=== PATIENT | female | born 1975 | race African-American/Black ===

== ENCOUNTER 2018-10-12 09:47 | Observation (INO) | payer OTHER ==
[~2018-10-12] VITALS: Ht 175.3 cm; Wt 142.0 kg
--- OUTSIDE RECORDS SUMMARY | 2018-10-12 09:51 | XMS REPORT | Clinical Summary ---
Author Author [facility] Organization [facility] Address Unknown Phone Unavailable Care Team Providers Care Full Fashioned Garment Knitter Name Role Phone Jaida Torres MD PCP Allergies Comments Active Allergy Reactions Severity Noted Date Throat closes up Lisinopril Hives High 05/14/2017 Medications End Date Status Medication Sig Dispensed Refills Start Date Active FLUoxetine (PROzac) 10 MG Take 10 mg by 0 capsule mouth 2 (two) times a day. Active amLODIPine (NORVASC) 10 Take 5 mg by 0 mg tablet mouth 2 (two) times a day. Active clonIDINE (CATAPRES) 0.1 Take 1 tablet 30 tablet 0 08/28/201 MG tablet (0.1 mg 9 total) by mouth 2 (two) times a day. 10/29/2017 Discontinued metoprolol tartrate Take 50 mg by 0 (LOPRESSOR) 50 mg tablet mouth daily. 10/30/2017 Discontinued amLODIPine (NORVASC) 10 Take 1 tablet 30 tablet 0 09/27/201 mg tablet (10 mg total) 8 by mouth daily for 30 days. 08/28/2018 Discontinued clonIDINE (CATAPRES) 0.1 Take one tab 30 tablet 0 09/27/201 MG tablet twice a day 8 as needed for blood pressure more then 165. 11/29/2017 amLODIPine (NORVASC) 10 Take 1 tablet 30 tablet 0 10/30/201 mg tablet (10 mg total) 8 by mouth daily for 30 days. 11/30/2017 fluticasone (FLONASE) 50 2 sprays (100 15.8 mL 0 mcg/actuation nasal spray mcg total) by 8 Each Nare route daily for 30 days. 11/30/2017 pantoprazole (PROTONIX) Take 1 tablet 30 tablet 0 40 MG EC tablet (40 mg total) 8 by mouth daily for 30 days. 11/29/2017 albuterol (PROAIR Inhale 2 18 g 0 HFA,PROVENTIL puffs every 6 8 HFA,VENTOLIN HFA) 90 (six) hours mcg/actuation inhaler as needed for wheezing or shortness of breath for up to 30 days. 11/04/2017 methylPREDNISolone follow 21 tablet 0 (MEDROL, ANA,) 4 mg package 8 tablet directions 12/03/2017 ondansetron ODT (ZOFRAN Take 1 tablet 12 tablet 0 ODT) 4 MG disintegrating (4 mg total) 8 tablet by mouth every 8 (eight) hours as needed for nausea or vomiting for up to 7 days. Active Problems Problem Noted Date Accelerated hypertension 02/10/2018 Colitis 02/10/2018 Overview: Added automatically from request for surgery [id number] Chest pain 10/29/2017 Flank pain 09/26/2017 Hypertensive urgency 06/26/2017 Encounters Care Team Description Date Type Specialty Erik Zimmerman MD 08/29/2018 Hospital Radiology Encounter Erik Zimmerman MD 08/29/2018 Hospital Radiology Encounter Dena Scales RN 08/29/2018 Orders Only Radiology Isaac Kenney MD Joglekar, Samir P., MD Chest pain, unspecified type (Primary Dx); Uncontrolled hypertension 08/27/2018 Emergency General Internal Medicine - 08/28/2018 Herberth Messina MD LakKayce kennedy MD Hypertensive urgency (Primary Dx); Abdominal pain, unspecified abdominal location 06/08/2018 Emergency General Internal Medicine - 06/09/2018 Jaky Mathew MD 02/12/2018 Anesthesia Gastroenterology Event Juan Manuel De Paz MD COLONOSCOPY with polypectomy by forceps 02/12/2018 Surgery Gastroenterology Marilin Milan MD Ahmed, Yahya, MD Colitis (Primary Dx); Accelerated hypertension 02/10/2018 Hospital General Internal Medicine - Encounter 02/13/2018 Jessie Freed MD Abdominal pain, unspecified abdominal location (Primary Dx); Acute pain of left knee 11/26/2017 Emergency Emergency Medicine Jessie Freed MD Khemka, Sanjay, MD Mohammad, Muneeb, MD Chest pain, unspecified type (Primary Dx); Hypoxemia; Hypertension, unspecified type 10/28/2017 [facility] General Internal Medicine - Encounter 10/30/2017 after 10/11/2017 Family History Medical History Relation Name Comments Diabetes Maternal Grandmother Heart disease Maternal Grandmother Hyperlipidemia Maternal Grandmother Hypertension Maternal Grandmother Stroke Maternal Grandmother Relation Name Status Comments Maternal Grandmother Alive Mother Alive Social History Date Tobacco Use Types Packs/Day Years Used Never Smoker Smokeless Tobacco: Never Used Tobacco Cessation: Counseling Given: No Alcohol Use Drinks/Week oz/Week Comments Yes social Sex Assigned at Date Recorded Not on file Industry Job Start Date Occupation Not on file Not on file Not on file Travel End Travel History Travel Start No recent travel history available. Last Filed Vital Signs Time Taken Vital Sign Reading 08/28/2018 3:07 PM SOLDERER Blood Pressure 134/70 08/28/2018 3:07 PM SOLDERER Pulse 89 08/28/2018 3:07 PM SOLDERER Temperature 36.9 C (98.5 F) 08/28/2018 3:07 PM SOLDERER Respiratory Rate 15 08/28/2018 3:07 PM SOLDERER Oxygen Saturation 100% - Inhaled Oxygen - Concentration 08/28/2018 5:15 AM SOLDERER Weight 142 kg (312 lb) 08/28/2018 5:15 AM SOLDERER Height 175.3 cm (5' 9") 08/28/2018 5:15 AM SOLDERER Body Mass Index 46.07 Plan of Treatment Health Maintenance Due Date Last Done Comments CERVICAL CANCER SCREENING 1995 INFLUENZA VACCINE 02/26/2018 Procedures Comments Procedure Name Priority Date/Time Associated Diagnosis NM MYOCARDIAL PERFUSION Routine 08/29/2018 STRESS REST 2 DAY 12:20 PM SOLDERER CV STRESS TEST NUCLEAR Routine 08/29/2018 CARDIO 12:20 PM SOLDERER ECG 12-LEAD STAT 08/28/2018 12:29 PM SOLDERER TROPONIN Timed 08/28/2018 10:10 AM SOLDERER US RENAL STAT 08/28/2018 7:00 AM SOLDERER HEMOGLOBIN A1C Routine 08/28/2018 4:02 AM SOLDERER LIPID PANEL Routine 08/28/2018 4:02 AM SOLDERER TROPONIN Timed 08/28/2018 4:02 AM SOLDERER ESTIMATED GFR Routine 08/28/2018 4:02 AM SOLDERER MAGNESIUM LEVEL Routine 08/28/2018 4:02 AM SOLDERER IONIZED CALCIUM Routine 08/28/2018 4:02 AM SOLDERER PHOSPHORUS LEVEL Routine 08/28/2018 4:02 AM SOLDERER COMPREHENSIVE METABOLIC Routine 08/28/2018 PANEL 4:02 AM SOLDERER HC COMPLETE BLD COUNT Routine 08/28/2018 W/AUTO DIFF 4:02 AM SOLDERER XR CHEST 2 VW STAT 08/28/2018 1:01 AM SOLDERER HCG QUALITATIVE, SERUM STAT 08/28/2018 SCREEN 12:26 AM SOLDERER ECG ED PRELIMINARY Routine 08/28/2018 INTERPRETATION 12:08 AM SOLDERER D-DIMER STAT 08/27/2018 10:31 PM SOLDERER ESTIMATED GFR STAT 08/27/2018 10:31 PM SOLDERER B NATRIURETIC PEPTIDE STAT 08/27/2018 10:31 PM SOLDERER TROPONIN STAT 08/27/2018 10:31 PM SOLDERER COMPREHENSIVE METABOLIC STAT 08/27/2018 PANEL 10:31 PM SOLDERER HC COMPLETE BLD COUNT STAT 08/27/2018 W/AUTO DIFF 10:31 PM SOLDERER ECG 12-LEAD STAT 08/27/2018 10:05 PM SOLDERER ECHOCARDIOGRAM 2D Routine 06/09/2018 COMPLETE W MMODE SPECTRAL 11:40 AM SOLDERER COLOR DOPPLER ([id number]) ESTIMATED GFR Routine 06/09/2018 6:30 AM SOLDERER HEMOGLOBIN A1C Routine 06/09/2018 6:30 AM SOLDERER THYROID STIMULATING Routine 06/09/2018 HORMONE 6:30 AM SOLDERER LIPID PANEL Routine 06/09/2018 6:30 AM SOLDERER COMPREHENSIVE METABOLIC Routine 06/09/2018 PANEL 6:30 AM SOLDERER HC COMPLETE BLD COUNT Routine 06/09/2018 W/AUTO DIFF 6:30 AM SOLDERER TROPONIN Timed 06/08/2018 11:00 PM SOLDERER GASTROINTESTINAL PANEL Routine 06/08/2018 3:[address] ABDOMEN PELVIS W STAT 06/08/2018 CONTRAST 2:23 PM SOLDERER ESTIMATED GFR STAT 06/08/2018 1:09 PM SOLDERER TROPONIN Routine 06/08/2018 1:09 PM SOLDERER LIPASE LEVEL STAT 06/08/2018 1:09 PM SOLDERER COMPREHENSIVE METABOLIC STAT 06/08/2018 PANEL 1:09 PM SOLDERER HC COMPLETE BLD COUNT STAT 06/08/2018 W/AUTO DIFF 1:09 PM SOLDERER ECG 12-LEAD STAT 06/08/2018 12:58 PM SOLDERER XR CHEST 1 VW PORTABLE STAT 06/08/2018 12:58 PM SOLDERER ECG ED PRELIMINARY Routine 06/08/2018 INTERPRETATION 12:36 PM SOLDERER ZZESTIMATED GFR Routine 02/13/2018 5:05 AM CDT IONIZED CALCIUM Routine 02/13/2018 5:05 AM CDT PHOSPHORUS LEVEL Routine 02/13/2018 5:05 AM CDT MAGNESIUM LEVEL Routine 02/13/2018 5:05 AM CDT COMPREHENSIVE METABOLIC Routine 02/13/2018 PANEL 5:05 AM CDT HC COMPLETE BLD COUNT Routine 02/13/2018 W/AUTO DIFF 5:05 AM CDT SURGICAL PATHOLOGY Routine 02/12/2018 REQUEST 1:29 PM CDT COLONOSCOPY 02/12/2018 Colitis 11:45 AM CDT IONIZED CALCIUM Routine 02/12/2018 5:50 AM CDT ZZESTIMATED GFR Routine 02/12/2018 5:50 AM CDT PHOSPHORUS LEVEL Routine 02/12/2018 5:50 AM CDT MAGNESIUM LEVEL Routine 02/12/2018 5:50 AM CDT COMPREHENSIVE METABOLIC Routine 02/12/2018 PANEL 5:50 AM CDT IONIZED CALCIUM Routine 02/12/2018 4:30 AM CDT HC COMPLETE BLD COUNT Routine 02/12/2018 W/AUTO DIFF 4:30 AM CDT ZZESTIMATED GFR Routine 02/11/2018 3:45 AM CDT LACTIC ACID LEVEL, SEPSIS Timed 02/11/2018 - NOW AND REPEAT 2X EVERY 3:45 AM CDT 3 HOURS LIPASE LEVEL Timed 02/11/2018 3:45 AM CDT AMYLASE LEVEL Timed 02/11/2018 3:45 AM CDT IONIZED CALCIUM Routine 02/11/2018 3:45 AM CDT PHOSPHORUS LEVEL Routine 02/11/2018 3:45 AM CDT MAGNESIUM LEVEL Routine 02/11/2018 3:45 AM CDT COMPREHENSIVE METABOLIC Routine 02/11/2018 PANEL 3:45 AM CDT HC COMPLETE BLD COUNT Routine 02/11/2018 W/AUTO DIFF 3:45 AM CDT TROPONIN Timed 02/11/2018 3:45 AM CDT URINALYSIS SCREEN AND STAT 02/10/2018 MICROSCOPY, WITH REFLEX 11:04 PM CDT TO CULTURE GRAM STAIN STAT 02/10/2018 11:04 PM CDT URINE CULTURE STAT 02/10/2018 11:[address] ABDOMEN PELVIS W STAT 02/10/2018 CONTRAST 10:43 PM CDT XR CHEST 1 VW PORTABLE STAT 02/10/2018 9:56 PM CDT ECG ED PRELIMINARY Routine 02/10/2018 INTERPRETATION 9:46 PM CDT AK CRITICAL CARE, E/M Routine 02/10/2018 30-74 MINUTES 9:46 PM CDT ECG 12-LEAD STAT 02/10/2018 9:30 PM CDT ZZESTIMATED GFR STAT 02/10/2018 9:17 PM CDT B NATRIURETIC PEPTIDE STAT 02/10/2018 9:17 PM CDT LIPASE LEVEL STAT 02/10/2018 9:17 PM CDT TROPONIN STAT 02/10/2018 9:17 PM CDT CREATINE KINASE, TOTAL STAT 02/10/2018 (CPK) 9:17 PM CDT COMPREHENSIVE METABOLIC STAT 02/10/2018 PANEL 9:17 PM CDT PARTIAL THROMBOPLASTIN STAT 02/10/2018 TIME (PTT) 9:17 PM CDT PROTHROMBIN TIME WITH INR STAT 02/10/2018 9:17 PM CDT HC COMPLETE BLD COUNT STAT 02/10/2018 W/AUTO DIFF 9:17 PM CDT US DUPLEX VENOUS LOWER STAT 11/26/2017 EXTREMITY LEFT 4:[address] ABDOMEN PELVIS W STAT 11/26/2017 CONTRAST 3:42 AM CDT ZZESTIMATED GFR STAT 11/26/2017 1:55 AM CDT COMPREHENSIVE METABOLIC STAT 11/26/2017 PANEL 1:55 AM CDT HC COMPLETE BLD COUNT STAT 11/26/2017 W/AUTO DIFF 1:55 AM CDT XR KNEE 3 VW LEFT STAT 11/25/2017 11:34 PM CDT URINALYSIS SCREEN AND Routine 11/25/2017 MICROSCOPY, WITH REFLEX 10:40 PM CDT TO CULTURE URINE CULTURE Routine 11/25/2017 10:40 PM CDT ZZESTIMATED GFR Routine 10/30/2017 3:37 AM CDT LIPASE LEVEL Routine 10/30/2017 3:37 AM CDT BASIC METABOLIC PANEL Routine 10/30/2017 3:37 AM CDT RESPIRATORY PATHOGEN Routine 10/29/2017 PANEL 1:30 PM CDT TROPONIN Timed 10/29/2017 8:24 AM CDT ECG 12-LEAD Routine 10/29/2017 8:13 AM CDT LACTIC ACID LEVEL, SEPSIS Timed 10/29/2017 - NOW AND REPEAT 2X EVERY 4:00 AM CDT 3 HOURS TROPONIN Timed 10/29/2017 4:00 AM CDT ECG 12-LEAD Routine 10/29/2017 3:48 AM CDT LACTIC ACID LEVEL, SEPSIS Timed 10/29/2017 - NOW AND REPEAT 2X EVERY 1:20 AM CDT 3 HOURS BLOOD CULTURE, AEROBIC & Routine 10/29/2017 ANAEROBIC 1:20 AM CDT BLOOD CULTURE, AEROBIC & Routine 10/29/2017 ANAEROBIC 1:[address] ANGIOGRAM PE CHEST STAT 10/29/2017 12:48 AM CDT ZZESTIMATED GFR STAT 10/28/2017 11:17 PM CDT B NATRIURETIC PEPTIDE STAT 10/28/2017 11:17 PM CDT LIPASE LEVEL STAT 10/28/2017 11:17 PM CDT TROPONIN STAT 10/28/2017 11:17 PM CDT CREATINE KINASE, TOTAL STAT 10/28/2017 (CPK) 11:17 PM CDT COMPREHENSIVE METABOLIC STAT 10/28/2017 PANEL 11:17 PM CDT HC COMPLETE BLD COUNT STAT 10/28/2017 W/AUTO DIFF 11:17 PM CDT ECG ED PRELIMINARY Routine 10/28/2017 INTERPRETATION 10:49 PM CDT ECG 12-LEAD STAT 10/28/2017 7:58 PM CDT after 10/11/2017 Results * Cv stress test (08/29/2018 12:20 PM SOLDERER) Resting HR 94 [facility] Resting BP 168 [facility] Peak MET Achieved 4.8 [facility] Protocol Name [place] [facility] Time in Exercise Phase 00:04:31 [facility] Max Systolic BP 233 [facility] Max Diastolic BP 113 [facility] Max Heart Rate 162 [facility] Max Predicted Heart Rate 176 [facility] Target HR Formula (220 - Age)*85% [facility] Test Indication ANGINA [facility] Stress Test Impression Waveform interpreted in report [facility] MUSE associated with image study. No interpretation is provided as part of this Stress ECG report.--Electronically Signed By Erik Zimmerman MD ([id number]), primer expeditor and drier [place] ([id number]) on 08/28/2018 11:40:06 AM Target HR 176.00 bpm [facility] Narrative Performed At Performing Organization Address [facility] Phone Number [facility] MUSE [address] [place] [address] * Nm myocardial perfusion (08/29/2018 12:20 PM SOLDERER) Resting HR 94 BPM [facility] Resting BP 168/98 mmHg [facility] Post peak HR 162 bpm [facility] Percent HR 92.05 % [facility] Post peak BP 233/113 mmHg [facility] Target HR 176.00 bpm [facility] Exercise duration (min) 4 min [facility] Exercise duration (sec) 31 sec [facility] Narrative Performed At [facility] This study result indicates a low risk of cardiac , or nonfatal infarction, over the ensuing year. Probably normal myocardial perfusion imaging. There is a fixed, medium sized moderate anterior wall defect with normal wall motion. This likely represents breast attenuation artifact. Scar can not be excluded. No ischemia is seen. EF 42% Performing Organization Address [facility] Phone Number [facility] [address] [place] [address] * ECG 12 lead (08/28/2018 12:29 PM SOLDERER) Only the most recent of 7 results within the time period is included. Ventricular rate 93 [facility] Atrial rate 93 [facility] AK interval 174 [facility] QRSD interval 90 [facility] QT interval 356 [facility] QTC interval 442 [facility] P axis 1 60 [facility] QRS axis 1 29 [facility] T wave axis 72 [facility] EKG impression Normal sinus [facility] MUSE rhythm-Nonspecific T wave abnormality-Abnormal ECG-In automated comparison with ECG of 27-AUG-2018 22:05,-Nonspecific T wave abnormality now evident in Lateral leads- Narrative Performed At Performing Organization Address [facility] Phone Number [facility] MUSE [address] [place] [address] * Troponin (08/28/2018 10:10 AM SOLDERER) Only the most recent of 10 results within the time period is included. Troponin <0.30 0.00 - 0.30 ng/mL [facility] Comment: [facility] 0.11 - 1.49 ng/mlMay indicate increased risk of acute coronary syndrome. >=1.5 ng/ml Consistent with acute myocardial infarction. The diagnostic value of a single normal or non-diagnostic result is questionable.Serial samples at 2-6 hour intervals are required to rule out acute myocardial injury. Specimen Plasma specimen Performing Organization Address City/State/Zipcode Phone Number [facility] [place] [address] [place] [address] PATHOLOGY AND GENOMIC MEDICINE [facility] [address] * US Renal (08/28/2018 7:00 AM SOLDERER) Narrative Performed At EXAMINATION:[facility]ICAL H[facility]ORY:Renal failureacute (kidney injury) COMPARISON:CT from 06/08/2018. IMPRESSION: 1.There is no hydronephrosis. 2.Renal cortical echogenicity is within normal limits. 3.Right kidney measures 12.5 x 5 x 5.3 cm. Subcentimeter hypodense lesions noted on prior CT are not identified ultrasound. 4.Left kidney measures 4.6 x 5.1 x 5.6 cm. 5.Bladder is unremarkable. [facility]-[id number] Procedure Note Interface, Radiology Results Incoming - 08/28/2018 7:35 AM SOLDERER EXAMINATION: US RENAL CLINICAL HISTORY: Renal failure acute (kidney injury) COMPARISON: CT from 06/08/2018. IMPRESSION: 1. There is no hydronephrosis. 2. Renal cortical echogenicity is within normal limits. 3. Right kidney measures 12.5 x 5 x 5.3 cm. Subcentimeter hypodense lesions noted on prior CT are not identified ultrasound. 4. Left kidney measures 4.6 x 5.1 x 5.6 cm. 5. Bladder is unremarkable. [facility]-[id number] Performing Organization Address City/State/Zipcode Phone Number [facility] [address] [place] [address] * Estimated GFR (08/28/2018 4:02 AM SOLDERER) Only the most recent of 4 results within the time period is included. Estimated GFR 75 mL/min/1.73 m2 [facility]ICKENS Comment: [facility] CatergoryUnitsInte rpretation G1 >=90 Normal or high G2 60-89Mildly decreased [id number] Mildly to moderately decreased [id number] Moderately to severely decreased G4 15-29Severely decreased G5 <15Kidney failure The eGFR was calculated using the Chronic Kidney Disease Epidemiology Collaboration (CKD-EPI) equation. Interpretation is based on recommendations of the National Kidney Foundation-Kidney Disease Outcomes Quality Initiative (NKF-KDOQI) published in 2014. Specimen Plasma specimen Performing Organization Address City/State/Zipcode Phone Number [facility] [place] [address] [place] [address] PATHOLOGY AND GENOMIC MEDICINE [facility] [address] * CBC with platelet and differential (08/28/2018 4:02 AM SOLDERER) Only the most recent of 10 results within the time period is included. WBC 7.0 4.5 - 11.0 k/uL [facility] RBC 4.26 4.20 - 5.50 m/uL [facility] HGB 11.6 (L) 12.0 - 16.0 g/dL [facility] HCT 37.3 37.0 - 47.0 % [facility] MCV 87.6 82.0 - 100.0 fL [facility] MCH 27.2 27.0 - 34.0 pg [facility] MCHC 31.1 31.0 - 37.0 g/dL [facility] RDW - SD 48.6 37.0 - 55.0 fL [facility] MPV 12.0 (H) 6.9 - 11.0 fL [facility] Platelet count 195 150 - 400 K/uL [facility] Nucleated RBC 0.00 /100 WBC [facility] Neutrophils 47.5 39.0 - 69.0 % [facility] Lymphocytes 43.2 25.0 - 45.0 % [facility] Monocytes 7.7 0.0 - 10.0 % [facility] Eosinophils 0.9 0.0 - 5.0 % [facility] Basophils 0.6 0.0 - 1.0 % [facility] Immature granulocytes 0.1 0.0 - 1.0 % [facility] Specimen Blood Performing Organization Address City/[facility]/Zipcode Phone Number [facility] [place] [address] PATHOLOGY AND [facility] MEDICINE [address] * Phosphorus level (08/28/2018 4:02 AM SOLDERER) Only the most recent of 4 results within the time period is included. Phosphorus 3.8 2.4 - 4.5 mg/dL [facility] Specimen Plasma specimen Performing Organization Address City/[facility] Phone Number [facility] [place] [address] * Magnesium level (08/28/2018 4:02 AM SOLDERER) Only the most recent of 4 results within the time period is included. Magnesium 1.7 1.6 - 2.6 mg/dL [facility] Specimen Plasma specimen Performing Organization Address City/[facility] Phone Number [facility] [place] [address] PATH[address] * Hemoglobin A1c (08/28/2018 4:02 AM SOLDERER) Only the most recent of 2 results within the time period is included. Hemoglobin A1C 5.0 4.0 - 6.0 % [facility] Comment: [facility] Less than 6% - Goal of therapy for Type II Diabetes Less than 7%-Goal of therapy for Type I Diabetes Less than 8%-Accepta ble control for Type I or Type II Diabetes Greater than 8%-Unacceptabl e control; action indicated. ([id number]) Performing Organization Address City/[facility]/Zipcode Phone Number [facility] [place] [address] PATHOLOGY AND GENOMIC MEDICINE [address] * Ionized calcium (08/28/2018 4:02 AM SOLDERER) Only the most recent of 5 results within the time period is included. pH 7.38 [facility] Ionized calcium 1.10 (L) 1.11 - 1.32 mmol/L [facility] Specimen Plasma specimen Performing Organization Address [facility] [place] [place] [address] PATHOLOGY AND GENOMIC MEDICINE [address] * Lipid panel (08/28/2018 4:02 AM SOLDERER) Only the most recent of 2 results within the time period is included. Cholesterol 145 0 - 199 mg/dL [facility] Triglycerides 93 0 - 149 mg/dL [facility] HDL cholesterol 39 (L) 40 - 99,999 mg/dL [facility] LDL cholesterol 101 (H) 0 - 99 mg/dL [facility] Lipid panel See below [facility] interpretation Comment: [facility] Total Cholesterol (mg/dL) <200 Desirable 200-239Borderline -high >=240High Triglycerides (mg/dL) <150 Normal 150-199Borderline -high 200-499High >=500Very high HDL Cholesterol (mg/dL) <40Low (male) <50Low (female) LDL Cholesterol (mg/dL) <100 Optimal 100-129Near or above optimal 130-159Borderline -high 160-189High >=190Very high Risk Catergories that modify LDL goals. Risk Catergories LDL goal (mg/dL) CHD and CHD risk equivalent<100 (10-year risk >20%) Multiple (2+) risk factors <130 (10-year risk=<20%) 0-1 risk factors <160 (<10-year risk) Defining levels of lipids in metabolic syndrome Triglycerides >=150 mg/dL HDL Cholesterol Men <40 mg/dL Women <50 mg/dL Non-HDL cholesterol is a second target for therapy in persons with high triglycerides (>=200 mg/dL) Specimen Plasma specimen Performing Organization Address City/[facility] Phone Number [facility] DEPARTMENT OF [address] [place] [address] PATHOLOGY AND GENOMIC MEDICINE [facility] [address] * Comprehensive metabolic panel (08/28/2018 4:02 AM SOLDERER) Only the most recent of 10 results within the time period is included. Sodium 139 135 - 148 mEq/L [facility] Potassium 4.2 3.5 - 5.0 mEq/L [facility] Chloride 101 98 - 112 mEq/L [facility] CO2 28 24 - 31 mEq/L [facility] Anion gap 10@ANIO 7 - 15 mEq/L [facility] BUN 15 6 - 20 mg/dL [facility] Creatinine 1.05 (H) 0.50 - 0.90 mg/dL [facility] Glucose 104 (H) 65 - 99 mg/dL [facility] Calcium 9.0 8.3 - 10.2 mg/dL [facility] Protein 7.0 6.3 - 8.3 g/dL [facility] Albumin 3.7 3.5 - 5.0 g/dL [facility] A/G ratio 1.1 0.7 - 3.8 [facility] Alkaline phosphatase 74 35 - 104 U/L [facility] AST 22 10 - 35 U/L [facility] ALT 23 5 - 50 U/L [facility] Total bilirubin 0.3 0.2 - 1.2 mg/dL [facility] Specimen Plasma specimen Performing Organization Address City/State/Zipcode Phone Number [facility] DEPARTMENT OF [address] [place] [address] PATHOLOGY AND GENOMIC MEDICINE [facility] [address] * XR Chest 2 Vw (08/28/2018 1:01 AM SOLDERER) Narrative Performed At EXAMINATION: XR CHEST 2 VW RADIANT CLINICAL HISTORY: Chest pain COMPARISON:06/08/2018 chest x-ray. IMPRESSION: The lungs are clear. No pleural effusion or pneumothorax. The cardiomediastinal silhouette is normal. No acute osseous abnormalities. [facility]-[id number] Procedure Note Interface, Radiology Results Incoming - 08/28/2018 1:11 AM SOLDERER EXAMINATION: XR CHEST 2 VW CLINICAL HISTORY: Chest pain COMPARISON: 06/08/2018 chest x-ray. IMPRESSION: The lungs are clear. No pleural effusion or pneumothorax. The cardiomediastinal silhouette is normal. No acute osseous abnormalities. [facility]-[id number] Performing Organization Address City/[facility]/Zipcode Phone Number [facility] [address] [place] [address] * hCG qualitative, serum screen (08/28/2018 12:26 AM SOLDERER) hCG qualitative, serum NegativeComment: Sensitivity [facility] of HCG test: 25 mIU/mL [facility] Specimen Blood Performing Organization Address City/[facility]/Zipcode Phone Number [facility] [place] [address] [place] [address] PATHOLOGY AND GENOMIC MEDICINE [facility] [address] * ECG ED Preliminary Interpretation - Not an Order (08/28/2018 12:08 AM SOLDERER) Only the most recent of 4 results within the time period is included. Narrative Performed At Isaac Kenney MD 08/28/20187:06 PM ECG ED Preliminary Interpretation - Not an Order Performed by: Isaac Kenney MD Authorized by: Isaac Kenney MD ECG reviewed by ED Physician in the absence of a pilates coordinator: yes Interpretation: Interpretation: normal Rate: ECG rate:112 ECG rate assessment: tachycardic Rhythm: Rhythm: sinus rhythm Ectopy: Ectopy: none QRS: QRS axis:Normal QRS intervals:Normal Conduction: Conduction: normal ST segments: ST segments:Normal T waves: T waves: normal * D-dimer (08/27/2018 10:31 PM SOLDERER) D-dimer 0.36 0.00 - 0.40 ug/mL [facility] Comment: [facility] Units are ug/ml Fibrinogen Equivalent Unit. When combined with low clinical probability, D-dimer results of less than 0.5 ug/ml FEU have a good negativepredictive value in excluding PE or DVT. For D-dimer results greater than 0.5ug/ml FEU further testing is indicated if PE or DVT is suspectedclinically. Elevated D-dimer results have been reported in DVT, PE, and DIC cases and may indicate the presence of a clot. D-dimer results may be elevated due to old age, , inflammatory diseases, trauma, post-operative states, sepsis, and malignancies. Specimen Blood Performing Organization Address City/State/Zipcode Phone Number [facility] [address] [place] [address] PATHOLOGY AND GENOMIC MEDICINE [address] * B natriuretic peptide (08/27/2018 10:31 PM SOLDERER) Only the most recent of 3 results within the time period is included. BNP 19 0 - 100 pg/mL [facility] Specimen Blood Performing Organization Address City/[facility]/[place] [address] PATHOLOGY AND GENOMIC MEDICINE [address] * Echocardiogram complete w contrast and 3D if needed (06/09/2018 11:40 AM SOLDERER) AoV Area, Vmax 3.20 cm2 [facility] AoV Area, VTI 3.35 cm2 [facility] AoV Mean PG 3.00 mmHg [facility] AoV Peak PG 5.20 mmHg [facility] AoV Vmax 1.14 m/s [facility] AoV VTI 0.20 m [facility] IVS,d 1.19 cm [facility] IVS/LVPW,2D 0.88 [facility] Left Atrium Dimension 4.20 cm [facility] Anterior LV,d 5.06 cm [facility] LV EF,2D 79.16 % [facility] LV,s 3.00 cm [facility] LVOT area 4.15 cm2 [facility] LVOT Diam,S 2.30 cm [facility] LVOT Vmax 0.88 m/s [facility] LVOT VTI 0.16 m [facility] LVPWD,d 1.36 cm [facility] PV Pk Grad 2.57 mmHg [facility] PV VMAX 0.80 m/s [facility] RVOT Vmax 0.53 m/s [facility] MV E A ratio 0.78 [facility] MR Vmax 3.35 m/s [facility] MR peak grad 44.89 mmHg [facility] E wave decelartion time 199.00 msec [facility] MV Peak A Pancho 0.96 m/s [facility] MV valve area p 1/2 3.81 cm2 [facility] method MV Peak E Pancho 0.75 m/s [facility] MV stenosis pressure 1/2 57.71 ms [facility] time AV LVOT peak gradient 3.09 mmHg [facility] Ao Root,d,2D 2.80 cm [facility] LV SYS VOL 35.00 ml [facility] LV CARDENAS VOL 121.57 ml [facility] LV SV Teich 2D 86.57 ml [facility] LV Vol s Teich PSAX 35.00 ml [facility] RVOT pk grad 1.13 mmHg [facility] AoV Cusp sep 2.30 [facility] Aortic Root 3.30 cm [facility] AoV Vmn 0.80 [facility] LV FS Teich 2D 40.71 [facility] MV AE ratio 1.28 [facility] LA Ao Ratio Mmode 1.45 [facility] LV FS Cube 2D 40.71 [facility] LVOT Vmn 0.56 [facility] AK End Cardenas Grad 2.57 [facility] AK End Diat Pancho 0.80 [facility] Aov area Vmn 2.89 cm2 [facility] LVOT mean grad 1.00 mmHg [facility] MAX Pred HR 176.20 [facility] 85 of MPHR 149.77 [facility] Ao d LA s ratio 0.67 [facility] Calc MPHR 176.20 bpm [facility] LV SV Cube 2D 102.55 ml [facility] LV vol d cube 2D 129.55 ml [facility] LV vol s cube 2D 27.00 ml [facility] MV Decel slope 3.75 m/s2 [facility] Pred Exer Dur R1 9.66 [facility] Pred METS R1 9.01 [facility] Velocity Ratio (V1/V2) 0.77 m/s [facility] EF 71.21 % [facility] E/A ratio 0.78 [facility] Narrative Performed At [facility] Left ventricular systolic function is normal. Left Ventricular ejection fraction is 60 - 65%. No pericardial effusion Spectral Doppler shows impaired relaxation pattern of left ventricular diastolic filling. Right Ventricle: Normal right ventricular size, wall thickness and global function. Unable to assess PA systolic pressure. No significant Valvular heart disease Performing Organization Address City/State/Zipcode Phone Number [facility] [address] [place] [address] * Thyroid stimulating hormone (06/09/2018 6:30 AM SOLDERER) TSH 2.60 0.27 - 4.20 uIU/mL [facility] Specimen Plasma specimen Performing Organization Address City/[facility]/Zipcode Phone Number [facility] [place] [address] [place] [address] PATHOLOGY AND GENOMIC MEDICINE [facility] [address] * Gastrointestinal panel (06/08/2018 3:00 PM SOLDERER) Gastrointestinal panel Positive for Sapovirus [facility] Negative for all other pathogens tested: Negative for Salmonella Negative for Campylobacter Negative for Diarrheagenic E coli/Shigella Negative for Shiga-like toxin-producing E coli Negative for Plesiomonas shigelloides Negative for Yersinia enterocolitica Negative for Vibrio species Negative for Clostridium difficile (Toxin A/B) Negative for Cryptosporidium Negative for Giardia lamblia Negative for Cyclospora cayeteanensis Negative for Entamoeba histolytica Negative for Adenovirus F 40/41 Negative for Astrovirus Negative for Norovirus GI/GII Negative for Rotavirus A Negative for E coli 0157 This real-time PCR assay detects the presence of nucleic acids (RNA or DNA) for the gastrointestinal pathogens listed. A result of "Not-detected" does not exclude the possibility of the presence of one or more pathogens at concentrations less than the detectable limits of the assay. (A) Comment: Specimen Information Specimen Source: Stool Specimen Site: Nonpreserved Specimen Stool - Nonpreserved Performing Organization Address City/[facility]/Zipcode Phone Number [facility] DEPARTMENT [address] [place] [address] PATHOLOGY AND GENOMIC MEDICINE [address] * CT Abdomen Pelvis W Contrast (06/08/2018 2:23 PM SOLDERER) Only the most recent of 3 results within the time period is included. Narrative Performed At EXAMINATION:CT ABDOMEN PELVIS W CONTRAST [facility] CLINICAL HISTORY:abdominal pain and vomitinghx colitis TECHNIQUE: Multiple axial images of the abdomen and pelvis were obtained following intravenous administration of iodinated contrast. Sagittal and coronal computerized reformatted images were also obtained. CT images were obtained using low-dose technique with automated exposure control. COMPARISON:CT from 02/10/2018 IMPRESSION: Lung bases: 1.There are no focal consolidations or effusions. Abdomen and Pelvis: 1. Status post cholecystectomy. Common bile duct is not dilated. 2.Liver, spleen, pancreas, adrenal glands and left kidney are normal. There were couple of subcentimeter hypodense lesions in the right kidney suggesting small cysts. There is a 1-2 mm nonobstructing calyceal stone upper pole in the right kidney. There is no hydronephrosis. 3.No evidence of intestinal obstruction. There are air-fluid levels in the ascending and transverse colon present suggesting presence of diarrhea. Descending and rectosigmoid colon are collapsed. There is no gross colonic wall thickening or pericolonic inflammation. There is no significant diverticular disease. Appendix is normal. 4.Bladder is unremarkable. Status post hysterectomy. There are no adnexal masses. 5.There is no abdominal or pelvic adenopathy or ascites. Aorta is normal in caliber. Musculoskeletal: 1.Regional skeletal structures are within normal limits with facet arthropathy in the lower lumbar spine. SUMMARY: No CT evidence of acute abnormality in the abdomen and pelvis. [facility]-[id number] Procedure Note [facility], Radiology Results Incoming - 06/08/2018 2:43 PM SOLDERER EXAMINATION: CT ABDOMEN PELVIS W CONTRAST CLINICAL HISTORY: abdominal pain and vomiting hx colitis TECHNIQUE: Multiple axial images of the abdomen and pelvis were obtained following intravenous administration of iodinated contrast. Sagittal and coronal computerized reformatted images were also obtained. CT images were obtained using low-dose technique with automated exposure control. COMPARISON: CT from 02/10/2018 IMPRESSION: Lung bases: 1. There are no focal consolidations or effusions. Abdomen and Pelvis: 1. Status post cholecystectomy. Common bile duct is not dilated. 2. Liver, spleen, pancreas, adrenal glands and left kidney are normal. There were couple of subcentimeter hypodense lesions in the right kidney suggesting small cysts. There is a 1-2 mm nonobstructing calyceal stone upper pole in the right kidney. There is no hydronephrosis. 3. No evidence of intestinal obstruction. There are air-fluid levels in the ascending and transverse colon present suggesting presence of diarrhea. Descending and rectosigmoid colon are collapsed. There is no gross colonic wall thickening or pericolonic inflammation. There is no significant diverticular disease. Appendix is normal. 4. Bladder is unremarkable. Status post hysterectomy. There are no adnexal masses. 5. There is no abdominal or pelvic adenopathy or ascites. Aorta is normal in caliber. Musculoskeletal: 1. Regional skeletal structures are within normal limits with facet arthropathy in the lower lumbar spine. SUMMARY: No CT evidence of acute abnormality in the abdomen and pelvis. [facility]-[id number] Performing Organization Address City/[facility]/Zipcode Phone Number [facility] [address] [place] [address] * Lipase level (06/08/2018 1:09 PM SOLDERER) Only the most recent of 5 results within the time period is included. Lipase 48 13 - 60 U/L [facility] Specimen Plasma specimen Performing Organization Address City/[facility] Phone Number [facility] [place] [address] PATHOLOGY AND GENOMIC MEDICINE [address] * XR Chest 1 Vw Portable (06/08/2018 12:58 PM SOLDERER) Only the most recent of 2 results within the time period is included. Narrative Performed At Examination: XR CHEST [address] [facility] Clinical history: hypertension Comparison: February 10, 2018 Impression: 1. The heart and pulmonary vasculature are within normal limits. 2. No infiltrate or effusion is demonstrated. 3. There is no acute osseous pathology. CONCLUSION: NO RADIOGRAPHIC EVIDENCE OF ACUTE CARDIOPULMONARY ABNORMALITY. [id number] Procedure Note Hm Interface, Radiology Results Incoming - 06/08/2018 1:08 PM SOLDERER Examination: XR CHEST 1 VW PORTABLE Clinical history: hypertension Comparison: February 10, 2018 Impression: 1. The heart and pulmonary vasculature are within normal limits. 2. No infiltrate or effusion is demonstrated. 3. There is no acute osseous pathology. CONCLUSION: NO RADIOGRAPHIC EVIDENCE OF ACUTE CARDIOPULMONARY ABNORMALITY. [facility]-[id number] Performing Organization Address [facility]/Zipcode Phone Number [facility] [address] [place] [address] * Estimated GFR (02/13/2018 5:05 AM CDT) Only the most recent of 7 results within the time period is included. GFR Non Af Amer 60 mL/min/1.73 m2 [facility] DEPARTMENT OF PATHOLOGY AND GENOMIC MEDICINE GFR Af Amer 73 mL/min/1.73 m2 [facility] DEPARTMENT OF Comment: PATHOLOGY AND Chronic kidney disease: <60 GENOMIC MEDICINE mL/min/1.73m2 Kidney failure: <15 mL/min/1.73m2 The estimated GFR is calculated from the IDMS-traceable Modification of Diet in Renal Disease Equation. The accuracy of the calculation is poor when the creatinine is normal. Calculated values >90 mL/min/1.73m2 are not reported. This equation has not been validated in children (<18 years), women, the elderly (>70 years), or ethnic groups other than Caucasians and Americans. Specimen Plasma specimen Performing Organization Address City/[facility] Phone Number [address] [place] [address] PATHOLOGY AND GENOMIC MEDICINE * Surgical pathology request (02/12/2018 1:29 PM CDT) [facility] DEPARTMENT OF PATHOLOGY AND GENOMIC MEDICINE Surgical pathology report See link below for PDF Lab [facility] DEPARTMENT OF Report PATHOLOGY AND GENOMIC MEDICINE Result status This is Final Report to [facility] DEPARTMENT OF [id number] PATHOLOGY AND GENOMIC MEDICINE Performing Organization Address [facility] [place] [place] [address] PATHOLOGY AND GENOMIC MEDICINE * Lactic acid level, SEPSIS - Now and repeat 2x every 3 hours (02/11/2018 3:45 AM CDT) Only the most recent of 3 results within the time period is included. Lactic acid 1.8 0.5 - 2.2 mmol/L [facility] DEPARTMENT OF PATHOLOGY AND GENOMIC MEDICINE Specimen Plasma specimen Performing Organization Address City/[facility] Phone Number [address] [place] [address] PATHOLOGY AND GENOMIC MEDICINE * Amylase level (02/11/2018 3:45 AM CDT) Amylase 39 13 - 73 U/L [facility] PATHOLOGY AND GENOMIC MEDICINE Specimen Plasma specimen Performing Organization Address [facility] Phone Number [address] [place] [address] PATHOLOGY AND GENOMIC MEDICINE * Urinalysis screen and microscopy, with reflex to culture (02/10/2018 11:04 PM CDT) Only the most recent of 2 results within the time period is included. Specimen site Clean catch [facility] DEPARTMENT OF PATHOLOGY AND GENOMIC MEDICINE Color, UA Yellow [facility] DEPARTMENT OF PATHOLOGY AND GENOMIC MEDICINE Appearance, UA Clear [facility] DEPARTMENT OF PATHOLOGY AND GENOMIC MEDICINE Specific gravity, UA 1.036 (H) 1.001 - 1.030 [facility] DEPARTMENT OF PATHOLOGY AND GENOMIC MEDICINE pH, UA 5.0 5.0 - 9.0 [facility] DEPARTMENT OF PATHOLOGY AND GENOMIC MEDICINE Protein, UA 1+ (A) Negative [facility] DEPARTMENT OF PATHOLOGY AND GENOMIC MEDICINE Glucose, UA Negative Negative [facility] DEPARTMENT OF PATHOLOGY AND GENOMIC MEDICINE Ketones, UA Negative Negative [facility] DEPARTMENT OF PATHOLOGY AND GENOMIC MEDICINE Bilirubin, UA Negative Negative [facility] DEPARTMENT OF PATHOLOGY AND GENOMIC MEDICINE Blood, UA Small (A) Negative [facility] DEPARTMENT OF PATHOLOGY AND GENOMIC MEDICINE Nitrite, UA Negative Negative [facility] DEPARTMENT OF PATHOLOGY AND GENOMIC MEDICINE Urobilinogen, UA <2.0 <2.0 E.U./dL [facility] DEPARTMENT OF PATHOLOGY AND GENOMIC MEDICINE Leukocyte esterase, UA Negative Negative [facility] DEPARTMENT OF PATHOLOGY AND GENOMIC MEDICINE Epithelial cells, UA <1 /HPF [facility] DEPARTMENT OF PATHOLOGY AND GENOMIC MEDICINE WBC, UA 1 0 - 4 /HPF [facility] DEPARTMENT OF PATHOLOGY AND GENOMIC MEDICINE RBC, UA 2 0 - 5 /HPF [facility] DEPARTMENT OF PATHOLOGY AND GENOMIC MEDICINE Bacteria, UA Few None seen [facility] DEPARTMENT OF PATHOLOGY AND GENOMIC MEDICINE Yeast, UA Moderate (A) [facility] DEPARTMENT OF PATHOLOGY AND GENOMIC MEDICINE Yeast with pseudohyphae, None seen [facility] DEPARTMENT OF UA PATHOLOGY AND GENOMIC MEDICINE Specimen Urine Performing Organization Address City/State/Zipcode Phone Number [facility] [place] [address] [place] [address] PATHOLOGY AND GENOMIC MEDICINE * Gram stain (02/10/2018 11:04 PM CDT) Gram stain result No WBC's or organisms seen. [facility] DEPARTMENT OF Comment: PATHOLOGY AND Specimen Information GENOMIC MEDICINE Specimen Source: Urine Specimen Site: Clean catch Specimen Urine Performing Organization Address City/State/Zipcode Phone Number [facility] DEPARTMENT OF [address] [place] [address] PATHOLOGY AND GENOMIC MEDICINE * Urine culture (02/10/2018 11:04 PM CDT) Only the most recent of 2 results within the time period is included. Urine culture isolate Mixed Gram positive ralf [facility] DEPARTMENT OF 10-2 cfu/ml PATHOLOGY AND (A) GENOMIC MEDICINE Comment: Specimen Information Specimen Source: Urine Specimen Site: Clean catch Urine culture isolate Gram negative rods [facility] DEPARTMENT OF <10-1 cfu/ml PATHOLOGY AND (A) GENOMIC MEDICINE Specimen Urine Performing Organization Address City/State/Zipcode Phone Number [facility] DEPARTMENT OF [address] [place] [address] PATHOLOGY AND GENOMIC MEDICINE * CRITICAL CARE (02/10/2018 9:46 PM CDT) Narrative Performed At Marilin Milan MD 02/11/20182:06 PM Critical Care Performed by: MARILIN MILAN Authorized by: MARILIN MILAN Critical care provider statement: Critical care time (minutes):38 Critical care time was exclusive of:Separately billable procedures and treating other patients Critical care was necessary to treat or prevent imminent or life-threatening deterioration of the following conditions:Circulatory failure (Uncontrolled severe hypertension, severe uncontrolled abdominal pain, requirement for intravenous antihypertensive and intravenous morphine.) Critical care was time spent personally by me on the following activities:Development of treatment plan with patient or surrogate, evaluation of patient's response to treatment, examination of patient, obtaining history from patient or surrogate, ordering and performing treatments and interventions, ordering and review of laboratory studies, pulse oximetry, re-evaluation of patient's condition, discussions with consultants, ordering and review of radiographic studies and review of old charts * Partial thromboplastin time, activated (02/10/2018 9:17 PM CDT) PTT 25.0 23.0 - 36.0 sec [facility] DEPARTMENT OF Comment: PATHOLOGY AND PTT therapeutic range for [facility] MEDICINE unfractionated heparin is 61.0-112.0 seconds which corresponds to Anti-Xa 0.3-0.7 U/ml. Specimen Blood Performing Organization Address City/State/Zipcode Phone Number [facility] [place] [address] [place] [address] PATHOLOGY AND GENOMIC MEDICINE * Prothrombin time with INR (02/10/2018 9:17 PM CDT) Prothrombin time 13.1 12.0 - 15.0 sec [facility] DEPARTMENT OF PATHOLOGY AND GENOMIC MEDICINE INR 1.0 [facility] DEPARTMENT OF Comment: PATHOLOGY AND The International Normalized GENOMIC MEDICINE Ratio (INR) is a therapeutic monitoring tool for patients who are stable on oral anticoagulant therapy. An INR of 2.0-3.0 is suggested for deep vein thrombosis/pulmonary embolism. Specimen Blood Performing Organization Address City/[facility]/Zipcode Phone Number [facility] [place] [address] [facility] [place] [address] PATHOLOGY AND GENOMIC MEDICINE * Creatine kinase, total (CPK) (02/10/2018 9:17 PM CDT) Only the most recent of 2 results within the time period is included. Creatine kinase 135 26 - 192 U/L [facility] DEPARTMENT OF PATHOLOGY AND GENOMIC MEDICINE Specimen Plasma specimen Performing Organization Address City/[facility] Phone Number [facility] [place] [address] [place] [address] PATHOLOGY AND [employer] MEDICINE * PV Duplex Venous Lower Extremity (11/26/2017 4:35 AM CDT) Narrative Performed At EXAMINATION:US DUPLEX VENOUS LOWER EXTREMITY LEFT [facility]IANT CLINICAL HISTORY:left lower leg swelling and pain COMPARISON:None. TECHNIQUE:Grayscale, color Doppler, and spectral waveform analysis of the left lower extremity deep venous systems was performed. The common femoral, superficial femoral, proximal deep femoral, greater saphenous, and popliteal veins were evaluated. The calf vessels were also evaluated. Spectral Doppler evaluation of the right common femoral vein was also performed. FINDINGS: Patient body habitus limits the study. The left common femoral, superficial femoral, and popliteal veins are compressible. They demonstrate normal venous waveforms and response to augmentation. There is flow in the visualized calf veins. There is no evidence of a popliteal or Ball's cyst. The right common femoral vein is also patent. IMPRESSION: No evidence of venous thrombosis of the visualized left lower extremity veins. [facility]-[id number] Procedure Note Interface, Radiology Results Incoming - 11/26/2017 4:41 AM CDT EXAMINATION: US DUPLEX VENOUS LOWER EXTREMITY LEFT CLINICAL HISTORY: left lower leg swelling and pain COMPARISON: None. TECHNIQUE: Grayscale, color Doppler, and spectral waveform analysis of the left lower extremity deep venous systems was performed. The common femoral, superficial femoral, proximal deep femoral, greater saphenous, and popliteal veins were evaluated. The calf vessels were also evaluated. Spectral Doppler evaluation of the right common femoral vein was also performed. FINDINGS: Patient body habitus limits the study. The left common femoral, superficial femoral, and popliteal veins are compressible. They demonstrate normal venous waveforms and response to augmentation. There is flow in the visualized calf veins. There is no evidence of a popliteal or Ball's cyst. The right common femoral vein is also patent. IMPRESSION: No evidence of venous thrombosis of the visualized left lower extremity veins. [facility]-[id number] Performing Organization Address City/[facility]/Zipcode Phone Number [facility] [address] [place] [address] * XR Knee 3 Vw Left (11/25/2017 11:34 PM CDT) Narrative Performed At EXAMINATION:XR KNEE 3 VW LEFT RADIANT CLINICAL HISTORY:joint pain COMPARISON:None. IMPRESSION: No evidence of acute left knee fracture, dislocation, or significant joint effusion. Bone mineralization is decreased. Soft tissues are unremarkable. [facility]-[id number] Procedure Note Interface, Radiology Results Incoming - 11/25/2017 11:39 PM CDT EXAMINATION: XR KNEE 3 VW LEFT CLINICAL HISTORY: joint pain COMPARISON: None. IMPRESSION: No evidence of acute left knee fracture, dislocation, or significant joint effusion. Bone mineralization is decreased. Soft tissues are unremarkable. [id number] Performing Organization Address [facility] Phone Number [facility] [address] [place] [address] * Basic metabolic panel (10/30/2017 3:37 AM CDT) Sodium 139 135 - 148 mEq/L [facility] DEPARTMENT OF PATHOLOGY AND GENOMIC MEDICINE Potassium 4.5 3.5 - 5.0 mEq/L [facility] DEPARTMENT OF PATHOLOGY AND GENOMIC MEDICINE Chloride 99 98 - 112 mEq/L [facility] DEPARTMENT OF PATHOLOGY AND GENOMIC MEDICINE CO2 28 24 - 31 mEq/L [facility] DEPARTMENT OF PATHOLOGY AND GENOMIC MEDICINE Anion gap 12 7 - 15 mEq/L [facility] DEPARTMENT OF Comment: PATHOLOGY AND Starting from October [facility] MEDICINE , anion gap calculation no longer incorporates potassium. Please note the change. BUN 14 6 - 20 mg/dL [facility] DEPARTMENT OF PATHOLOGY AND GENOMIC MEDICINE Creatinine 0.9 0.5 - 0.9 mg/dL [facility] DEPARTMENT OF PATHOLOGY AND GENOMIC MEDICINE Glucose 129 (H) 65 - 99 mg/dL [facility] DEPARTMENT OF PATHOLOGY AND GENOMIC MEDICINE Calcium 9.6 8.3 - 10.2 mg/dL [facility] DEPARTMENT OF PATHOLOGY AND GENOMIC MEDICINE Specimen Plasma specimen Performing Organization Address City/State/Zipcode Phone Number [address] [address] PATHOLOGY AND GENOMIC MEDICINE * Respiratory pathogen panel (10/29/2017 1:30 PM CDT) Respiratory pathogen Positive for Respiratory [facility] DEPARTMENT OF panel Syncytial Virus PATHOLOGY AND GENOMIC MEDICINE Negative for all other pathogens tested: Negative for Adenovirus Negative for Coronavirus HKU1 Negative for Coronavirus NL63 Negative for Coronavirus 229E Negative for Coronavirus OC43 Negative for Human Metapneumovirus Negative for Rhinovirus/Enterovirus Negative for Influenza A Negative for Influenza A/H1 Negative for Influenza A/H3 Negative for Influenza A/H1-2009 Negative for Influenza B Negative for Parainfluenza Virus 1 Negative for Parainfluenza Virus 2 Negative for Parainfluenza Virus 3 Negative for Parainfluenza Virus 4 Negative for Bordetella pertussis Negative for Chlamydophila pneumoniae Negative for Mycoplasma pneumoniae This real-time PCR assay detects the presence of nucleic acids (RNA or DNA) for the respiratory pathogens listed. A result of "Not-detected" does not exclude the possibility of the presence of one or more pathogens at concentrations less than the detectable limits of the assa (A) Comment: Specimen Information Specimen Source: Nares Specimen Site: Right and left lobes Specimen Nares - Right and left lobes Performing Organization Address [facility] Phone Number [facility] DEPARTMENT [facility] [phone] PATHOLOGY AND [facility] MEDICINE * Blood culture, aerobic & anaerobic (10/29/2017 1:20 AM CDT) Only the most recent of 2 results within the time period is included. Blood culture isolate No growth after 5 days of [facility] DEPARTMENT OF incubation. PATHOLOGY AND Comment: [facility] MEDICINE Specimen Information Specimen Source: Blood Specimen Site: Antecubital, right Specimen Blood - Antecubital, right Performing Organization Address City/[facility] Phone Number [facility] DEPARTMENT OF [address] [place] [id number] PATHOLOGY AND [facility] MEDICINE * CT Angiogram Pe Chest (10/29/2017 12:48 AM CDT) Narrative Performed At EXAMINATION:CT ANGIOGRAM PE CHEST RADIANT CLINICAL HISTORY: pleuritic CP TECHNIQUE:CT angiographic images of the chest were obtained during intravenous administration of iodinated contrast. Computerized reformatted images and 3-D MIP images were also obtained and archived (CT pulmonary embolus protocol).CT scans are performed using radiation dose reduction techniques.Technical factors are evaluated and adjusted to ensure appropriate moderation of exposure.Automated dose management technology is applied to adjust radiation exposure while achieving a diagnostic quality image. COMPARISON:None. Findings: There are no filling defects within the pulmonary arterial system to suggest a pulmonary embolus. No dissection or aneurysm is seen. No consolidation or pleural effusion is seen. No pulmonary mass or nodule is seen. No mediastinal hematoma or lymphadenopathy is seen. Visualized upper abdomen shows no acute abnormality. IMPRESSION: 1. No evidence of pulmonary embolus. No acute abnormality identified in the chest. [id number] Procedure Note Interface, Radiology Results Incoming - 10/29/2017 12:59 AM CDT EXAMINATION: CT ANGIOGRAM PE CHEST CLINICAL HISTORY: pleuritic CP TECHNIQUE: CT angiographic images of the chest were obtained during intravenous administration of iodinated contrast. Computerized reformatted images and 3-D MIP images were also obtained and archived (CT pulmonary embolus protocol). CT scans are performed using radiation dose reduction techniques. Technical factors are evaluated and adjusted to ensure appropriate moderation of exposure. Automated dose management technology is applied to adjust radiation exposure while achieving a diagnostic quality image. COMPARISON: None. Findings: There are no filling defects within the pulmonary arterial system to suggest a pulmonary embolus. No dissection or aneurysm is seen. No consolidation or pleural effusion is seen. No pulmonary mass or nodule is seen. No mediastinal hematoma or lymphadenopathy is seen. Visualized upper abdomen shows no acute abnormality. IMPRESSION: 1. No evidence of pulmonary embolus. No acute abnormality identified in the chest. [id number] Performing Organization Address City/State/Zipcode Phone Number [facility] [address] [place] [address] after 10/11/2017 Insurance Payer Benefit Subscriber ID Type Phone Address Plan / Group [facility] [employer] [facility] xxxxxxxxx O [facility] MEDICAID MEDICAID xxxxxxxxx Medicaid Advance Directives Patient has advance care planning documents, and code status on file. For more i nformation, please contact: Mikhail Dickens [address] [place] [address] Date Inactivated Comments Code Status Date Activated 08/29/2018 12:11 AM Full Code 08/28/2018 5:21 AM Code Status decision reached by: Patient 09/27/2017 4:48 PM Full Code 09/27/2017 2:38 AM Code Status decision reached by: Patient 06/27/2017 5:49 PM Full Code 06/27/2017 12:57 AM Code Status decision reached by: Patient
--- OUTSIDE RECORDS SUMMARY | 2018-10-12 09:51 | XMS REPORT | Clinical Summary ---
Author Author [facility] Address Unknown Phone Unavailable Care Team Providers Care Statistical Developer Name Role Phone Brian Sena PCP Unavailable Allergies Comments Active Allergy Reactions Severity Noted Date Lisinopril Hives 01/25/2014 Medications End Date Status Medication Sig Dispensed Refills Start Date Active hydrochlorothiazide Take 25 mg by 0 (HYDRODIURIL) 25 MG mouth daily. tablet Active metoprolol (LOPRESSOR) 25 Take 25 mg by 0 MG tablet mouth 2 (two) times daily. Active metoprolol (TOPROL-XL) 25 0 10/08/201 MG 24 hr tablet 5 Active FLUoxetine (PROZAC) 20 MG Take 20 mg by 0 tablet mouth daily. Active Problems Problem Noted Date Pelvic pain in female 04/27/2016 Family History Medical History Relation Name Comments Unremarkable Father Unremarkable Mother Relation Name Status Comments Father Mother Social History Date Tobacco Use Types Packs/Day Years Used Never Smoker Smokeless Tobacco: Never Used Alcohol Use Drinks/Week oz/Week Comments Yes socially Sex Assigned at Date Recorded Not on file Industry Job Start Date Occupation Not on file Not on file Not on file Travel End Travel History Travel Start No recent travel history available. Last Filed Vital Signs Not on file Plan of Treatment Health Maintenance Due Date Last Done Comments INFLUENZA VACCINE 04/28/2018 Results Not on fileafter 10/11/2017 Insurance Payer Benefit Subscriber ID Type Phone Address Plan / Group MEDICAID - MEDICAID [place] MEDICAID xxxxxxxxx Medicaid CARE COMM Contracted HEALTH CHOICE
--- OUTSIDE RECORDS SUMMARY | 2018-10-12 09:51 | XMS REPORT | Clinical Summary ---
Author Author [facility] Organization [facility] Address Unknown Phone Unavailable Care Team Providers Care Body Maker Machine Setter Name Role Phone PCP Unavailable Allergies Comments Active Allergy Reactions Severity Noted Date Lisinopril (Bulk) 05/19/2012 No Known Allergies 05/04/2012 Medications End Date Status Medication Sig Dispensed Refills Start Date Active aspirin (ASPIRIN) 81 mg Chew 81 mg by 0 chewable tablet mouth daily. Active nitroGLYCERIN (NITROSTAT) Place 1 100 tablet 0 0.4 mg sublingual tablet under 3 tabletIndications: Chest tongue every pain 5 minutes as needed for Chest pain and seek medical help. Active hydrochlorothiazide Take 1 tablet 90 tablet 3 (HYDRODIURIL) 25 mg by mouth 3 tabletIndications: daily. Essential hypertension, benign Active metoprolol (TOPROL XL) 25 Take 1 tablet 90 tablet 3 mg extended release by mouth 3 tabletIndications: daily. Essential hypertension, benign Active amLODIPine (NORVASC) 5 mg Take 5 mg by 0 tablet mouth daily. Active gabapentin (NEURONTIN) Take 1 120 capsule 2 300 mg capsule by 4 capsuleIndications: TED mouth 4 times (generalized anxiety daily. disorder) Active FLUoxetine (PROZAC) 20 mg Take 3 90 capsule 2 capsuleIndications: TED capsules by 4 (generalized anxiety mouth daily. disorder), OCD (obsessive compulsive disorder) Active diazepam (VALIUM) 2 mg Take 1 tablet 30 tablet 2 tabletIndications: TED by mouth 4 (generalized anxiety nightly at disorder) bedtime as needed for Anxiety. Active QUEtiapine (SEROQUEL) 50 Take 1 tablet 30 tablet 2 mg tabletIndications: TED by mouth at 4 (generalized anxiety bedtime disorder) nightly. Active acetaminophen-codeine Take 1 tablet 30 tablet 0 (TYLENOL/CODEINE #3) by mouth 4 300-30 mg per every 4 hours tabletIndications: as needed for Abdominal pain Pain. Active ibuprofen (MOTRIN) 800 mg Take 1 tablet 30 tablet 0 tabletIndications: by mouth 4 Abdominal pain every 8 hours as needed for Pain or Fever. Active acetaminophen (TYLENOL) Take 1 tablet 30 tablet 2 500 mg tabletIndications: by mouth 8 Right lower quadrant every 6 hours abdominal pain as needed for Pain. 07/22/2018 gabapentin (NEURONTIN) Take 1 90 capsule 0 300 mg capsule by 8 capsuleIndications: Right mouth 3 times lower quadrant abdominal daily for 30 pain days. 07/22/2018 naproxen (NAPROSYN) 500 Take 1 tablet 60 tablet 2 mg tabletIndications: by mouth 2 8 Right lower quadrant times daily abdominal pain (with meals) for 30 days. Active Problems Problem Noted Date Abdominal pain 06/12/2014 OCD (obsessive compulsive disorder) 06/04/2013 TED (generalized anxiety disorder) 03/12/2013 Cocaine abuse, in remission 03/12/2013 Neck fullness 05/19/2012 SOB (shortness of breath) 05/19/2012 Lower extremity weakness 05/04/2012 Encounters Care Team Description Date Type Specialty Manuel Pepe MD Right lower quadrant abdominal pain (Primary Dx) 06/22/2018 Emergency Emergency Medicine after 10/11/2017 Immunizations Name Dates Previously Given Next Due Influenza Vaccine 05/04/2012 (Deferred: Patient Refused) Family History Medical History Relation Name Comments Heart Maternal heart attack Grandmother Relation Name Status Comments Maternal Grandmother Social History Date Tobacco Use Types Packs/Day Years Used Never Smoker Smokeless Tobacco: Never Used Tobacco Cessation: Counseling Given: No Alcohol Use Drinks/Week oz/Week Comments Yes occasional 1 drink Sex Assigned at Date Recorded Not on file Industry Job Start Date Occupation Not on file Not on file Not on file Travel End Travel History Travel Start No recent travel history available. Last Filed Vital Signs Time Taken Vital Sign Reading 06/22/2018 6:30 AM FILTER OPERATOR Blood Pressure 174/103 06/22/2018 6:30 AM FILTER OPERATOR Pulse 82 06/22/2018 6:30 AM FILTER OPERATOR Temperature 36.8 C (98.3 F) 06/22/2018 6:30 AM FILTER OPERATOR Respiratory Rate 18 06/22/2018 6:30 AM FILTER OPERATOR Oxygen Saturation 97% - Inhaled Oxygen - Concentration - Weight - - Height - - Body Mass Index - Plan of Treatment Health Maintenance Due Date Last Done Comments Cervical Cancer Scrn (3 1995 Yrs) Breast Cancer Scrn 2014 (Yearly) IMM Influenza Seasonal 04/28/2018Apr to September (>/=19 yrs) Procedures Comments Procedure Name Priority Date/Time Associated Diagnosis UA CHEMISTRIES STAT 06/22/2018 4:30 AM FILTER OPERATOR POCT URINE DIPSTICK - STAT 06/22/2018 4:29 AM FILTER OPERATOR TEST STAT 06/22/2018 4:[address] ABDOMEN AND PELVIS W STAT 06/22/2018 Right lower quadrant CONTRAST - ROUTINE 4:07 AM FILTER OPERATOR abdominal pain BMP POC Routine 06/22/2018 3:37 AM FILTER OPERATOR VBG POC Routine 06/22/2018 3:29 AM FILTER OPERATOR CBC/DIFF STAT 06/22/2018 3:12 AM FILTER OPERATOR after 10/11/2017 Results * UA CHEMISTRIES (06/22/2018 4:30 AM FILTER OPERATOR) Color Yellow BT MAIN-STATION 1 Clarity Clear BT MAIN-STATION 1 Spec [place] >1.035 (H) 1.001 - 1.035 BT MAIN-STATION 1 pH 5.0 5 - 8 BT MAIN-STATION 1 Protein 2+ (A) NEG BT MAIN-STATION 1 Glucose Negative NEG BT MAIN-STATION 1 Ketone Negative NEG BT MAIN-STATION 1 Bilirubin Negative NEG BT MAIN-STATION 1 Nitrate Negative NEG BT MAIN-STATION 1 Urobilinogen <1.0 0.2 - 1.0 EU/dL BT MAIN-STATION 1 Leukocyte Negative NEG BT MAIN-STATION 1 Blood Negative NEG BT MAIN-STATION 1 RBC 2 0 - 4 /HPF BT MAIN-STATION 1 WBC 2 0 - 5 /HPF BT MAIN-STATION 1 Epithelial Cell 1 /HPF BT MAIN-STATION 1 Mucous Present BT MAIN-STATION 1 Specimen Urine Performing Organization Address City/[facility] Phone Number MISYS BT MAIN-STATION 1 * POCT URINE DIPSTICK - (06/22/2018 4:29 AM FILTER OPERATOR) present Control not present * TEST (06/22/2018 4:15 AM FILTER OPERATOR) Negative BT MAIN-STATION 1 Specimen Urine Performing Organization Address City/[facility] Phone Number MISYS BT MAIN-STATION 1 * CT ABDOMEN AND PELVIS W CONTRAST - ROUTINE (06/22/2018 4:07 AM FILTER OPERATOR) Impressions Performed At IMPRESSION: SMS No acute inflammatory process in the abdomen and pelvic cavity. If the report is "FINALIZED" it indicates that the attending/staff radiologist has reviewed the images and agrees with the resident's interpretation. Dictated By: Ivy Cowan MD, 06/22/2018 4:25 AM I have reviewed the study and agree with the findings in this report. Signed By: Lamine Hernandez MD, 06/22/2018 5:00 AM Narrative Performed At EXAM: CT Abdomen and Pelvis WITH contrast SMS INDICATION: Abdominal pain COMPARISON: Abdominopelvic CT 06/12/2014 TECHNIQUE: Abdomen and pelvis were scanned utilizing a multidetector helical scanner from the lung base to the pubic symphysis after administration of IV contrast. Coronal and sagittal reformations were obtained. Routine protocol was performed. Scan was performed when during portal venous phase. IV CONTRAST: 150 mL of Omnipaque 300 ORAL CONTRAST: None COMPLICATIONS: None RADIATION DOSE: Total DLP: 967 mGy*cm Estimated effective dose: (DLP x 0.015 x size factor) mSv CTDIvol has been reviewed. It is below the limits set by the Radiation Protocol Committee (RPC). FINDINGS: LINES and TUBES: None. LOWER THORAX:Unremarkable HEPATOBILIARY:No focal hepatic lesions. No biliary ductal dilation. GALLBLADDER: There are cholecystectomy clips. SPLEEN: No splenomegaly. PANCREAS: No focal masses or ductal dilatation. ADRENALS: No adrenal nodules KIDNEYS/URETERS: Kidneys enhance symmetrically.No hydronephrosis. 0.8 cm cyst in the interpolar region of the right kidney. Additional smaller hypodensities are too small to characterize. No stones. GI TRACT: No abnormal distention, wall thickening, or evidence of bowel obstruction. Appendix is normal. PELVIC ORGANS/BLADDER: Bladder is unremarkable. Hysterectomy. No adnexal masses. LYMPH NODES: No lymphadenopathy. VESSELS: Unremarkable. PERITONEUM / RETROPERITONEUM: No free air or fluid. BONES: Unremarkable. SOFT TISSUES: Unremarkable. Procedure Note Interface, Rad/Mammog In - 06/22/2018 5:06 AM FILTER OPERATOR EXAM: CT Abdomen and Pelvis WITH contrast INDICATION: Abdominal pain COMPARISON: Abdominopelvic CT 06/12/2014 TECHNIQUE: Abdomen and pelvis were scanned utilizing a multidetector helical scanner from the lung base to the pubic symphysis after administration of IV contrast. Coronal and sagittal reformations were obtained. Routine protocol was performed. Scan was performed when during portal venous phase. IV CONTRAST: 150 mL of Omnipaque 300 ORAL CONTRAST: None COMPLICATIONS: None RADIATION DOSE: Total DLP: 967 mGy*cm Estimated effective dose: (DLP x 0.015 x size factor) mSv CTDIvol has been reviewed. It is below the limits set by the Radiation Protocol Committee (RPC). FINDINGS: LINES and TUBES: None. LOWER THORAX: Unremarkable HEPATOBILIARY: No focal hepatic lesions. No biliary ductal dilation. GALLBLADDER: There are cholecystectomy clips. SPLEEN: No splenomegaly. PANCREAS: No focal masses or ductal dilatation. ADRENALS: No adrenal nodules KIDNEYS/URETERS: Kidneys enhance symmetrically. No hydronephrosis. 0.8 cm cyst in the interpolar region of the right kidney. Additional smaller hypodensities are too small to characterize. No stones. GI TRACT: No abnormal distention, wall thickening, or evidence of bowel obstruction. Appendix is normal. PELVIC ORGANS/BLADDER: Bladder is unremarkable. Hysterectomy. No adnexal masses. LYMPH NODES: No lymphadenopathy. VESSELS: Unremarkable. PERITONEUM / RETROPERITONEUM: No free air or fluid. BONES: Unremarkable. SOFT TISSUES: Unremarkable. IMPRESSION IMPRESSION: No acute inflammatory process in the abdomen and pelvic cavity. If the report is "FINALIZED" it indicates that the attending/staff radiologist has reviewed the images and agrees with the resident's interpretation. Dictated By: Ivy Cowan MD, 06/22/2018 4:25 AM I have reviewed the study and agree with the findings in this report. Signed By: Lamine Hernandez MD, 06/22/2018 5:00 AM Performing Organization Address City/State/Zipcode Phone Number SMS * BMP POC (06/22/2018 3:37 AM FILTER OPERATOR) CO2 POC 29 21 - 32 mmol/L BT MAIN-STATION 1 Chloride POC 101 98 - 107 mmol/L BT MAIN-STATION 1 Potassium POC 4.1 3.50 - 5.10 mmol/L BT MAIN-STATION 1 Sodium POC 141 136 - 145 mmol/L BT MAIN-STATION 1 Glucose POC 103 74 - 106 mg/dL BT MAIN-STATION 1 Urea Nitrogen 16 7 - 18 mg/dL BT MAIN[facility]STATION POC 1 Creatinine POC 1.0 0.6 - 1.3 mg/dL BT MAIN-STATION 1 Calcium Ionized 1.17 1.15 - 1.29 mmol/L BT MAIN[facility]STATION POC 1 Hemoglobin POC 15.0 12.0 - 16.0 g/dL BT MAIN-STATION 1 Hematocrit POC 44.0 37.0 - 47.0 % BT MAIN-STATION 1 GFR, Estimated >60 mL/min/1.73 m2 BT MAIN-STATION 1 GFR, Estim, >60 mL/min/1.73 m2 BT MAIN-STATION Afr-Am 1 Performing Organization Address [facility] Phone Number MISYS BT [facility]IN-STATION 1 * VBG POC (06/22/2018 3:29 AM FILTER OPERATOR) pH, Jaki POC 7.47 (H) 7.33 - 7.43 BT MAIN-STATION 1 pCO2, Jaki POC 44.4 38.0 - 50.0 mm Hg BT MAIN-STATION 1 pO2, Jaki POC 43 (L) 50 - 75 mm Hg BT MAIN-STATION 1 Base Excess, 8 mmol/L BT MAIN[facility]STATION Jaki POC 1 HCO3, Jaki POC 32.4 (H) 22.0 - 26.0 mmol/L BT MAIN-STATION 1 % Sat, Jaki POC 81 60 - 85 % BT MAIN-STATION 1 Lactic Acid, 1.29 0.4 - 2.0 mmol/L BT MAIN-STATION Jaki POC 1 Sample Type Jaki BT MAIN-STATION 1 TCO2, JAKI POC 34 (H) 21 - 32 mmol/L BT MAIN-STATION 1 Performing Organization Address [facility] Phone Number MISYS BT [facility]IN-STATION 1 * CBC/DIFF (06/22/2018 3:12 AM FILTER OPERATOR) WBC 6.3 4.5 - 11.0 K/uL BT MAIN-STATION 2 RBC 4.70 4.20 - 5.40 M/uL BT MAIN-STATION 2 Hemoglobin 12.7 12.0 - 16.0 g/dL BT MAIN-STATION 2 Hematocrit 39.8 37.0 - 47.0 % BT MAIN-STATION 2 MCV 85 82 - 92 fL BT MAIN-STATION 2 MCH 27.0 27.0 - 32.0 pg BT MAIN-STATION 2 MCHC 31.9 (L) 32.0 - 36.0 g/dL BT MAIN-STATION 2 RDW 44.2 36.4 - 46.3 fL BT MAIN-STATION 2 Platelet 230 150 - 400 K/uL BT MAIN-STATION 2 Mean Platelet 11.3 9.4 - 12.4 fL BT MAIN-STATION Volume 2 Percent NRBC 0.0 BT MAIN-STATION 2 Absolute NRBC 0.00 BT MAIN-STATION 2 Neutrophil 40.3 34.0 - 70.0 % BT MAIN-STATION 2 Lymphocyte 49.8 20.0 - 50.0 % BT MAIN-STATION 2 Monocyte 7.7 5.0 - 12.0 % BT MAIN-STATION 2 Eosinophil 1.4 0.7 - 5.0 % BT MAIN-STATION 2 Basophil 0.5 0.1 - 1.2 % BT MAIN-STATION 2 Pct Immat Gran 0.3 0.0 - 0.5 BT MAIN-STATION 2 Neutrophil, Abs 2.53 1.56 - 6.13 K/uL BT MAIN-STATION 2 Lymphocyte, Abs 3.12 1.18 - 3.74 K/uL BT MAIN-STATION 2 Monocyte, Abs 0.48 (H) 0.24 - 0.36 K/uL BT MAIN-STATION 2 Eosinophil, Abs 0.09 0.04 - 0.36 K/uL BT MAIN-STATION 2 Basophil, Abs 0.03 0.01 - 0.08 K/uL BT MAIN-STATION 2 Absol Immat 0.02 0.00 - 0.03 K/uL BT MAIN-STATION Gran 2 Specimen Blood Performing Organization Address City/State/Zipcode Phone Number MISYS BT MAIN-STATION 2 after 10/11/2017 Insurance Type Payer Benefit Subscriber ID Effective Phone Address Plan / Dates Group [employer] xxxxxxxxx 2018 [phone] [id number] [place] [address] Advance Directives For more information, please contact: [address] [address] Date Inactivated Comments Code Status Date Activated 06/12/2014 11:41 PM Full Code 06/12/2014 6:25 AM 05/20/2012 2:12 PM Full Code 05/19/2012 11:28 AM 05/05/2012 5:50 PM Full Code 05/04/2012 6:05 PM
--- OUTSIDE RECORDS SUMMARY | 2018-10-12 09:52 | XMS REPORT | Continuity of Care Document ---
Author Author [facility] Address Unknown Phone Unavailable Problems Problem Status Onset Date Classification Date Reported Comments Source Abdominal pain Active 06/12/2014 10/08/2018 [facility] OCD Active 06/04/2013 10/08/2018 [facility] TED Active 03/12/2013 10/08/2018 [facility] Cocaine abuse, in remission Active 03/12/2013 10/08/2018 [facility] Neck fullness Active 05/19/2012 10/08/2018 [facility] SOB Active 05/19/2012 10/08/2018 [facility] Lower extremity weakness Active 05/04/2012 10/08/2018 [facility] Right lower quadrant abdominal pain Active 10/08/2018 [facility] Medications Medication Details Route Status Patient Instructions Ordering Provider Order Date Source gabapentin (NEURONTIN) 300 mg capsule Take 1 capsule by mouth 3 times daily for 30 days. Oral No Longer Active 06/22/2018 [facility] acetaminophen (TYLENOL) 500 mg tablet Take 1 tablet by mouth every 6 hours as needed for Pain. Oral Active 06/22/2018 [facility] naproxen (NAPROSYN) 500 mg tablet Take 1 tablet by mouth 2 times daily (with meals) for 30 days. Oral No Longer Active 06/22/2018 [facility] acetaminophen-codeine (TYLENOL/CODEINE #3) 300-30 mg per tablet Take 1 tablet by mouth every 4 hours as needed for Pain. Oral Active 06/12/2014 [facility] ibuprofen (MOTRIN) 800 mg tablet Take 1 tablet by mouth every 8 hours as needed for Pain or Fever. Oral Active 06/12/2014 [facility] gabapentin (NEURONTIN) 300 mg capsule Take 1 capsule by mouth 4 times daily. Oral Active 12/03/2013 [facility] FLUoxetine (PROZAC) 20 mg capsule Take 3 capsules by mouth daily. Oral Active 12/03/2013 [facility] diazepam (VALIUM) 2 mg tablet Take 1 tablet by mouth nightly at bedtime as needed for Anxiety. Oral Active 12/03/2013 [facility] QUEtiapine (SEROQUEL) 50 mg tablet Take 1 tablet by mouth at bedtime nightly. Oral Active 12/03/2013 [facility] nitroGLYCERIN (NITROSTAT) 0.[address] 1 tablet under tongue every 5 minutes as needed for Chest pain and seek medical help. Active 10/10/2012 [facility] hydrochlorothiazide (HYDRODIURIL) 25 mg tablet Take 1 tablet by mouth daily. Oral Active 10/10/2012 [facility] metoprolol (TOPROL XL) 25 mg extended release tablet Take 1 tablet by mouth daily. Oral Active 10/10/2012 [facility] aspirin (ASPIRIN) 81 mg chewable tablet Chew 81 mg by mouth daily. Active [facility] amLODIPine (NORVASC) 5 mg tablet Take 5 mg by mouth daily. Oral Active [facility] Allergies, Adverse Reactions, Alerts Substance Category Reaction Severity Reaction type Status Date Reported Comments Source Lisinopril (Bulk) Propensity to adverse reactions to drug Active 05/19/2012 [facility] Immunizations Immunization Date Given Site Status Last Updated Comments Source Influenza Vaccine 05/04/2012 Not Given Deferred: Patient Refused [facility] Results Order Name Results Value Reference Range Date Interpretation Comments Source UA CHEMISTRIES Color Yellow 06/22/2018 [facility] UA CHEMISTRIES Clarity Clear 06/22/2018 [facility] UA CHEMISTRIES Spec [place] >1.035 1.001 - 1.035 06/22/2018 [facility] UA CHEMISTRIES pH 5.0 5 - 8 06/22/2018 [facility] UA CHEMISTRIES Protein 2+ NEG 06/22/2018 [facility] UA CHEMISTRIES Glucose Negative NEG 06/22/2018 [facility] UA CHEMISTRIES Ketone Negative NEG 06/22/2018 [facility] UA CHEMISTRIES Bilirubin Negative NEG 06/22/2018 [facility] UA CHEMISTRIES Nitrate Negative NEG 06/22/2018 [facility] UA CHEMISTRIES Urobilinogen <1.0 0.2 - 1 06/22/2018 [facility] UA CHEMISTRIES Leukocyte Negative NEG 06/22/2018 [facility] UA CHEMISTRIES Blood Negative NEG 06/22/2018 [facility] UA CHEMISTRIES RBC 2 0 - 4 06/22/2018 [facility] UA CHEMISTRIES WBC 2 0 - 5 06/22/2018 [facility] UA CHEMISTRIES Epithelial Cell 1 /HPF 06/22/2018 [facility] UA CHEMISTRIES Mucous Present 06/22/2018 [facility] UA CHEMISTRIES Lab Interpretation Abnormal 06/22/[address] [facility] [address] ABDOMEN AND PELVIS W CONTRAST - ROUTINE IMPRESSION: No acute inflammatory process in the abdomen and pelvic cavity. If the report is "FINALIZED" it indicates that the attending/staff radiologist has reviewed the images and agrees with the resident's interpretation. Dictated By: Ivy Cowan MD, 06/22/2018 4:25 AM I have reviewed the study and agree with the findings in this report. Signed By: Lamine Hernandez MD, 06/22/2018 5:00 AM EXAM: CT Abdomen and Pelvis WITH contrast [...] or fluid. BONES: Unremarkable. SOFT TISSUES: Unremarkable. Interface, Rad/Mammog In - 06/22/2018 5:06 AM ALTERNATIVE DISPUTE RESOLUTION MEDIATOR EXAM: CT Abdomen and Pelvis WITH contrast [...] By: Lamine Hernandez MD, 06/22/2018 5:00 AM 06/22/2018 [employer] TEST Negative 06/22/2018 [employer] POCT URINE DIPSTICK - Control present 06/22/2018 [employer] POCT URINE DIPSTICK - not present 06/22/2018 [employer] POCT URINE DIPSTICK - Lab Interpretation Normal 06/22/2018 [employer] [facility] POC CO2 POC 29 mmol/L 21 - 32 06/22/2018 [employer] [facility] POC Chloride POC 101 mmol/L 98 - 107 06/22/2018 [employer] [facility] POC Potassium POC 4.1 mmol/L 3.5 - 5.1 06/22/2018 [employer] [facility] POC Sodium POC 141 mmol/L 136 - 145 06/22/2018 [employer] [facility] POC Glucose POC 103 mg/dL 74 - 106 06/22/2018 [facility] POC Urea Nitrogen POC 16 mg/dL 7 - 18 06/22/2018 [facility] POC Creatinine POC 1.0 mg/dL 0.6 - 1.3 06/22/2018 [facility] POC Calcium Ionized POC 1.17 mmol/L 1.15 - 1.29 06/22/2018 [facility] POC Hemoglobin POC 15.0 g/dL 12 - 16 06/22/2018 [facility] POC Hematocrit POC 44.0 % 37 - 47 06/22/2018 [facility] POC GFR, Estimated >60 mL/min/1.73 m2 06/22/2018 [facility] POC GFR, Estim, Afr-Am >60 mL/min/1.73 m2 06/22/2018 [facility] CBC/DIFF WBC 6.3 K/uL 4.5 - 11 06/22/2018 [facility] CBC/DIFF RBC 4.70 4.20 - 5.40 06/22/2018 [facility] CBC/DIFF Hemoglobin 12.7 g/dL 12 - 16 06/22/2018 [facility] CBC/DIFF Hematocrit 39.8 % 37 - 47 06/22/2018 [facility] CBC/DIFF MCV 85 fL 82 - 92 06/22/2018 [facility] CBC/DIFF MCH 27.0 pg 27 - 32 06/22/2018 [facility] CBC/DIFF MCHC 31.9 g/dL 32 - 36 06/22/2018 [facility] CBC/DIFF RDW 44.2 fL 36.4 - 46.3 06/22/2018 [facility] CBC/DIFF Platelet 230 K/uL 150 - 400 06/22/2018 [facility] CBC/DIFF Mean Platelet Volume 11.3 fL 9.4 - 12.4 06/22/2018 [facility] CBC/DIFF Percent NRBC 0.0 06/22/2018 [facility] CBC/DIFF Absolute NRBC 0.00 06/22/2018 [facility] CBC/DIFF Neutrophil 40.3 % 34 - 70 06/22/2018 [facility] CBC/DIFF Lymphocyte 49.8 % 20 - 50 06/22/2018 [facility] CBC/DIFF Monocyte 7.7 % 5 - 12 06/22/2018 [facility] CBC/DIFF Eosinophil 1.4 % 0.7 - 5 06/22/2018 [facility] CBC/DIFF Basophil 0.5 % 0.1 - 1.2 06/22/2018 [facility] CBC/DIFF Pct Immat Gran 0.3 0.0 - 0.5 06/22/2018 [facility] CBC/DIFF Neutrophil, Abs 2.53 K/uL 1.56 - 6.13 06/22/2018 [facility] CBC/DIFF Lymphocyte, Abs 3.12 K/uL 1.18 - 3.74 06/22/2018 [facility] CBC/DIFF Monocyte, Abs 0.48 K/uL 0.24 - 0.36 06/22/2018 [facility] CBC/DIFF Eosinophil, Abs 0.09 K/uL 0.04 - 0.36 06/22/2018 [facility] CBC/DIFF Basophil, Abs 0.03 K/uL 0.01 - 0.08 06/22/2018 [facility] CBC/DIFF Absol Immat Gran 0.02 K/uL 0 - 0.03 06/22/2018 [facility] CBC/DIFF Lab Interpretation Abnormal 06/22/2018 [facility] VBG POC pH, Jaki POC 7.47 7.33 - 7.43 06/22/2018 [facility] VBG POC pCO2, Jaki POC 44.4 38.0 - 50.0 06/22/2018 [facility] VBG POC pO2, Jaki POC 43 50 - 75 06/22/2018 [facility] VBG POC Base Excess, Jaki POC 8 mmol/L 06/22/2018 [facility] VBG POC HCO3, Jaki POC 32.4 mmol/L 22 - 26 06/22/2018 [facility] VBG POC % Sat, Jaki POC 81 % 60 - 85 06/22/2018 [facility] Lactic Acid, Jaki POC 1.29 mmol/L 0.4 - 2 06/22/2018 [facility] VBG POC Sample Type Jaki 06/22/2018 [facility] VBG POC TCO2, JAKI POC 34 mmol/L 21 - 32 06/22/2018 [facility] VBG POC Lab Interpretation Abnormal 06/22/2018 [facility] Vital Signs Vital Sign Value Date Comments Source Systolic (mm Hg) 174 06/22/2018 [facility] Diastolic (mm Hg) 103 06/22/2018 [facility] Heart Rate 82 06/22/2018 [facility] Temperature Oral (F) 36.83 Risa 06/22/2018 [facility] Respitory Rate 18 06/22/2018 [facility] Encounters Location Location Details Encounter Type Encounter Number Reason For Visit Attending Provider ADM Date DC Date Status Source Emergency Center BT Emergency [id number] Manuel Pepe MD 06/22/2018 06/22/2018 [facility] Procedures Procedure Code Date Perfomer Comments Source UA CHEMISTRIES [id number] 06/22/2018 [facility] POCT URINE DIPSTICK - [id number] 06/22/2018 [facility] TEST [id number] 06/22/[address] [facility] [address] ABDOMEN AND PELVIS W CONTRAST - ROUTINE [id number] 06/22/2018 [facility] BMP POC 93320 06/22/2018 [facility] VBG POC 25416 06/22/2018 [facility] CBC/DIFF [id number] 06/22/2018 [place] [facility]
--- OUTSIDE RECORDS SUMMARY | 2018-10-12 09:52 | XMS REPORT | Clinical Summary ---
Author Author [facility] Organization [facility] Address Unknown Phone Unavailable Care Team Providers Care Lead Cook Name Role Phone PCP Unavailable Allergies Comments [...] (Primary Dx) 06/22/2018 Emergency Emergency Medicine after 09/30/2017 Immunizations Name Dates Previously Given Next Due [...] Taken Vital Sign Reading 06/22/2018 6:30 AM GERMAN TEACHER Blood Pressure 174/103 06/22/2018 6:30 AM GERMAN TEACHER Pulse 82 06/22/2018 6:30 AM GERMAN TEACHER Temperature 36.8 C (98.3 F) 06/22/2018 6:30 AM GERMAN TEACHER Respiratory Rate 18 06/22/2018 6:30 AM GERMAN TEACHER Oxygen Saturation 97% - Inhaled Oxygen - Concentration - Weight - - Height - - Body Mass Index - Plan of Treatment Health Maintenance Due Date Last Done Comments Cervical Cancer Scrn (3 1995 Yrs) Breast Cancer Scrn 2014 (Yearly) IMM Influenza Seasonal 04/28/2018Apr to September (>/=19 yrs) Procedures Comments Procedure Name Priority Date/Time Associated Diagnosis UA CHEMISTRIES STAT 06/22/2018 4:30 AM GERMAN TEACHER POCT URINE DIPSTICK - STAT 06/22/2018 4:29 AM GERMAN TEACHER TEST STAT 06/22/2018 4:[address] ABDOMEN AND PELVIS W STAT 06/22/2018 Right lower quadrant CONTRAST - ROUTINE 4:07 AM GERMAN TEACHER abdominal pain BMP POC Routine 06/22/2018 3:37 AM GERMAN TEACHER VBG POC Routine 06/22/2018 3:29 AM GERMAN TEACHER CBC/DIFF STAT 06/22/2018 3:12 AM GERMAN TEACHER after 09/30/2017 Results * UA CHEMISTRIES (06/22/2018 4:30 AM GERMAN TEACHER) Color Yellow BT MAIN-STATION 1 Clarity Clear BT MAIN-STATION 1 Spec [place] >1.035 (H) 1.001 - 1.035 BT MAIN-STATION [...] MAIN-STATION 1 Specimen Urine Performing Organization Address City/[facility] Phone Number MISYS BT MAIN-STATION 1 * POCT URINE DIPSTICK - (06/22/2018 4:29 AM GERMAN TEACHER) present Control not present * TEST (06/22/2018 4:15 AM GERMAN TEACHER) Negative BT MAIN-STATION 1 Specimen Urine Performing Organization Address City/[facility] Phone Number MISYS BT MAIN-STATION 1 * CT ABDOMEN AND PELVIS W CONTRAST - ROUTINE (06/22/2018 4:07 AM GERMAN TEACHER) Impressions Performed At IMPRESSION: SMS No acute [...] Interface, Rad/Mammog In - 06/22/2018 5:06 AM GERMAN TEACHER EXAM: CT Abdomen and Pelvis WITH contrast [...] SMS * BMP POC (06/22/2018 3:37 AM GERMAN TEACHER) CO2 POC 29 21 - 32 mmol/L [...] BT MAIN-STATION Afr-Am 1 Performing Organization Address [facility] Phone Number MISYS BT MAIN-STATION 1 * VBG POC (06/22/2018 3:29 AM GERMAN TEACHER) pH, Jaki POC 7.47 (H) 7.33 - [...] mmol/L BT MAIN-STATION 1 Performing Organization Address [facility] Phone Number MISYS BT MAIN-STATION 1 * CBC/DIFF (06/22/2018 3:12 AM GERMAN TEACHER) WBC 6.3 4.5 - 11.0 K/uL BT [...] Phone Number MISYS BT MAIN-STATION 2 after 09/30/2017 Insurance Type Payer Benefit Subscriber ID Effective Phone Address Plan / Dates Group [facility] SELF-PAY [facility] xxxxxxxxx 2018 [phone] [id number] [place] [address] Advance Directives For more information, please contact: [address] [address] Date Inactivated Comments Code Status Date Activated 06/12/2014 11:41 PM Full Code 06/12/2014 6:25 AM 05/20/2012 2:12 PM Full Code 05/19/2012 11:28 AM 05/05/2012 5:50 PM Full Code 05/04/2012 6:05 PM
--- OUTSIDE RECORDS SUMMARY | 2018-10-12 09:52 | XMS REPORT | Clinical Summary ---
Author Author [facility] Organization [facility] Address Unknown Phone Unavailable Care Team Providers Care Operations Controller Name Role Phone PCP Unavailable Allergies Comments [...] (Primary Dx) 06/22/2018 Emergency Emergency Medicine after 09/28/2017 Immunizations Name Dates Previously Given Next Due [...] Taken Vital Sign Reading 06/22/2018 6:30 AM RAILROAD SHOP INSPECTOR Blood Pressure 174/103 06/22/2018 6:30 AM RAILROAD SHOP INSPECTOR Pulse 82 06/22/2018 6:30 AM RAILROAD SHOP INSPECTOR Temperature 36.8 C (98.3 F) 06/22/2018 6:30 AM RAILROAD SHOP INSPECTOR Respiratory Rate 18 06/22/2018 6:30 AM RAILROAD SHOP INSPECTOR Oxygen Saturation 97% - Inhaled Oxygen - Concentration - Weight - - Height - - Body Mass Index - Plan of Treatment Health Maintenance Due Date Last Done Comments Cervical Cancer Scrn (3 1995 Yrs) Breast Cancer Scrn 2014 (Yearly) IMM Influenza Seasonal 04/28/2018Apr to September (>/=19 yrs) Procedures Comments Procedure Name Priority Date/Time Associated Diagnosis UA CHEMISTRIES STAT 06/22/2018 4:30 AM RAILROAD SHOP INSPECTOR POCT URINE DIPSTICK - STAT 06/22/2018 4:29 AM RAILROAD SHOP INSPECTOR TEST STAT 06/22/2018 4:15 AM [address] [address] CT ABDOMEN AND PELVIS W STAT 06/22/2018 Right lower quadrant CONTRAST - ROUTINE 4:07 AM RAILROAD SHOP INSPECTOR abdominal pain BMP POC Routine 06/22/2018 3:37 AM RAILROAD SHOP INSPECTOR VBG POC Routine 06/22/2018 3:29 AM RAILROAD SHOP INSPECTOR CBC/DIFF STAT 06/22/2018 3:12 AM RAILROAD SHOP INSPECTOR after 09/28/2017 Results * UA CHEMISTRIES (06/22/2018 4:30 AM RAILROAD SHOP INSPECTOR) Color Yellow BT MAIN-STATION 1 Clarity Clear BT MAIN-STATION 1 Spec [place] >1.035 (H) 1.001 - 1.035 BT MAIN-STATION [...] MAIN-STATION 1 Specimen Urine Performing Organization Address City/[facility] Phone Number MISYS BT MAIN-STATION 1 * POCT URINE DIPSTICK - (06/22/2018 4:29 AM RAILROAD SHOP INSPECTOR) present Control not present * TEST (06/22/2018 4:15 AM RAILROAD SHOP INSPECTOR) Negative BT MAIN-STATION 1 Specimen Urine Performing Organization Address City/[facility] Phone Number MISYS BT MAIN-STATION 1 * CT ABDOMEN AND PELVIS W CONTRAST - ROUTINE (06/22/2018 4:07 AM RAILROAD SHOP INSPECTOR) Impressions Performed At IMPRESSION: SMS No acute [...] Interface, Rad/Mammog In - 06/22/2018 5:06 AM RAILROAD SHOP INSPECTOR EXAM: CT Abdomen and Pelvis WITH contrast [...] SMS * BMP POC (06/22/2018 3:37 AM RAILROAD SHOP INSPECTOR) CO2 POC 29 21 - 32 mmol/L [...] BT MAIN-STATION Afr-Am 1 Performing Organization Address [facility] Phone Number MISYS BT MAIN-STATION 1 * VBG POC (06/22/2018 3:29 AM RAILROAD SHOP INSPECTOR) pH, Jaki POC 7.47 (H) 7.33 - [...] mmol/L BT MAIN-STATION 1 Performing Organization Address [facility] Phone Number MISYS BT MAIN-STATION 1 * CBC/DIFF (06/22/2018 3:12 AM RAILROAD SHOP INSPECTOR) WBC 6.3 4.5 - 11.0 K/uL BT [...] Phone Number MISYS BT MAIN-STATION 2 after 09/28/2017 Insurance Type Payer Benefit Subscriber ID Effective Phone Address Plan / Dates Group [facility] SELF-PAY [facility] xxxxxxxxx 2018 [phone] [id number] [place] [address] Advance Directives For more information, please contact: [address] [address] Date Inactivated Comments Code Status Date Activated 06/12/2014 11:41 PM Full Code 06/12/2014 6:25 AM 05/20/2012 2:12 PM Full Code 05/19/2012 11:28 AM 05/05/2012 5:50 PM Full Code 05/04/2012 6:05 PM
--- OUTSIDE RECORDS SUMMARY | 2018-10-12 09:52 | XMS REPORT | Clinical Summary ---
Author Author [facility] Organization [facility] Address Unknown Phone Unavailable Care Team Providers Care Supervisor Motor Vehicle Assembly Name Role Phone PCP Unavailable Allergies Comments [...] (Primary Dx) 06/22/2018 Emergency Emergency Medicine after 08/13/2017 Immunizations Name Dates Previously Given Next Due [...] Taken Vital Sign Reading 06/22/2018 6:30 AM NEUROSURGERY RESEARCH DIRECTOR Blood Pressure 174/103 06/22/2018 6:30 AM NEUROSURGERY RESEARCH DIRECTOR Pulse 82 06/22/2018 6:30 AM NEUROSURGERY RESEARCH DIRECTOR Temperature 36.8 C (98.3 F) 06/22/2018 6:30 AM NEUROSURGERY RESEARCH DIRECTOR Respiratory Rate 18 06/22/2018 6:30 AM NEUROSURGERY RESEARCH DIRECTOR Oxygen Saturation 97% - Inhaled Oxygen - Concentration - Weight - - Height - - Body Mass Index - Plan of Treatment Health Maintenance Due Date Last Done Comments Cervical Cancer Scrn (3 1995 Yrs) Breast Cancer Scrn 2014 (Yearly) IMM Influenza Seasonal 04/28/2018Apr to September (>/=19 yrs) Procedures Comments Procedure Name Priority Date/Time Associated Diagnosis UA CHEMISTRIES STAT 06/22/2018 4:30 AM NEUROSURGERY RESEARCH DIRECTOR POCT URINE DIPSTICK - STAT 06/22/2018 4:29 AM NEUROSURGERY RESEARCH DIRECTOR TEST STAT 06/22/2018 4:15 AM NEUROSURGERY RESEARCH DIRECTOR CT ABDOMEN AND PELVIS W STAT 06/22/2018 Right lower quadrant CONTRAST - ROUTINE 4:07 AM NEUROSURGERY RESEARCH DIRECTOR abdominal pain BMP POC Routine 06/22/2018 3:37 AM NEUROSURGERY RESEARCH DIRECTOR VBG POC Routine 06/22/2018 3:29 AM NEUROSURGERY RESEARCH DIRECTOR CBC/DIFF STAT 06/22/2018 3:12 AM NEUROSURGERY RESEARCH DIRECTOR after 08/13/2017 Results * UA CHEMISTRIES (06/22/2018 4:30 AM NEUROSURGERY RESEARCH DIRECTOR) Color Yellow BT MAIN-STATION 1 Clarity Clear BT MAIN-STATION 1 Spec [place] >1.035 (H) 1.001 - 1.035 BT MAIN-STATION [...] MAIN-STATION 1 Specimen Urine Performing Organization Address [facility] Phone Number MISYS BT MAIN-STATION 1 * POCT URINE DIPSTICK - (06/22/2018 4:29 AM NEUROSURGERY RESEARCH DIRECTOR) present Control not present * TEST (06/22/2018 4:15 AM NEUROSURGERY RESEARCH DIRECTOR) Negative BT MAIN-STATION 1 Specimen Urine Performing Organization Address [facility] Phone Number MISYS BT MAIN-STATION 1 * CT ABDOMEN AND PELVIS W CONTRAST - ROUTINE (06/22/2018 4:07 AM NEUROSURGERY RESEARCH DIRECTOR) Impressions Performed At IMPRESSION: SMS No acute [...] Interface, Rad/Mammog In - 06/22/2018 5:06 AM NEUROSURGERY RESEARCH DIRECTOR EXAM: CT Abdomen and Pelvis WITH contrast [...] SMS * BMP POC (06/22/2018 3:37 AM NEUROSURGERY RESEARCH DIRECTOR) CO2 POC 29 21 - 32 mmol/L [...] BT MAIN-STATION Afr-Am 1 Performing Organization Address [facility] Phone Number MISYS BT MAIN-STATION 1 * VBG POC (06/22/2018 3:29 AM NEUROSURGERY RESEARCH DIRECTOR) pH, Jaki POC 7.47 (H) 7.33 - [...] mmol/L BT MAIN-STATION 1 Performing Organization Address [facility] Phone Number MISYS BT MAIN-STATION 1 * CBC/DIFF (06/22/2018 3:12 AM NEUROSURGERY RESEARCH DIRECTOR) WBC 6.3 4.5 - 11.0 K/uL BT [...] Phone Number MISYS BT MAIN-STATION 2 after 08/13/2017 Insurance Type Payer Benefit Subscriber ID Effective Phone Address Plan / Dates Group [facility] SELF-PAY [facility] xxxxxxxxx 2018 [phone] [id number] [place] [address] Advance Directives For more information, please contact: [address] [address] Date Inactivated Comments Code Status Date Activated 06/12/2014 11:41 PM Full Code 06/12/2014 6:25 AM 05/20/2012 2:12 PM Full Code 05/19/2012 11:28 AM 05/05/2012 5:50 PM Full Code 05/04/2012 6:05 PM
--- OUTSIDE RECORDS SUMMARY | 2018-10-12 09:52 | XMS REPORT | Clinical Summary ---
Author Author [facility] Organization [facility] Address Unknown Phone Unavailable Care Team Providers Care Payroll Consultant Name Role Phone PCP Unavailable Allergies Comments [...] (Primary Dx) 06/22/2018 Emergency Emergency Medicine after 08/12/2017 Immunizations Name Dates Previously Given Next Due [...] Taken Vital Sign Reading 06/22/2018 6:30 AM GRINDING AND POLISHING LABORER Blood Pressure 174/103 06/22/2018 6:30 AM GRINDING AND POLISHING LABORER Pulse 82 06/22/2018 6:30 AM GRINDING AND POLISHING LABORER Temperature 36.8 C (98.3 F) 06/22/2018 6:30 AM GRINDING AND POLISHING LABORER Respiratory Rate 18 06/22/2018 6:30 AM GRINDING AND POLISHING LABORER Oxygen Saturation 97% - Inhaled Oxygen - Concentration - Weight - - Height - - Body Mass Index - Plan of Treatment Health Maintenance Due Date Last Done Comments Cervical Cancer Scrn (3 1995 Yrs) Breast Cancer Scrn 2014 (Yearly) IMM Influenza Seasonal 04/28/2018Apr to September (>/=19 yrs) Procedures Comments Procedure Name Priority Date/Time Associated Diagnosis UA CHEMISTRIES STAT 06/22/2018 4:30 AM GRINDING AND POLISHING LABORER POCT URINE DIPSTICK - STAT 06/22/2018 4:29 AM GRINDING AND POLISHING LABORER TEST STAT 06/22/2018 4:15 AM GRINDING AND POLISHING LABORER CT ABDOMEN AND PELVIS W STAT 06/22/2018 Right lower quadrant CONTRAST - ROUTINE 4:07 AM GRINDING AND POLISHING LABORER abdominal pain BMP POC Routine 06/22/2018 3:37 AM GRINDING AND POLISHING LABORER VBG POC Routine 06/22/2018 3:29 AM GRINDING AND POLISHING LABORER CBC/DIFF STAT 06/22/2018 3:12 AM GRINDING AND POLISHING LABORER after 08/12/2017 Results * UA CHEMISTRIES (06/22/2018 4:30 AM GRINDING AND POLISHING LABORER) Color Yellow BT MAIN-STATION 1 Clarity Clear BT MAIN-STATION 1 Spec [place] >1.035 (H) 1.001 - 1.035 BT MAIN-STATION [...] MAIN-STATION 1 Specimen Urine Performing Organization Address City/[facility] Phone Number MISYS BT MAIN-STATION 1 * POCT URINE DIPSTICK - (06/22/2018 4:29 AM GRINDING AND POLISHING LABORER) present Control not present * TEST (06/22/2018 4:15 AM GRINDING AND POLISHING LABORER) Negative BT MAIN-STATION 1 Specimen Urine Performing Organization Address City/[facility] Phone Number MISYS BT MAIN-STATION 1 * CT ABDOMEN AND PELVIS W CONTRAST - ROUTINE (06/22/2018 4:07 AM GRINDING AND POLISHING LABORER) Impressions Performed At IMPRESSION: SMS No acute [...] Interface, Rad/Mammog In - 06/22/2018 5:06 AM GRINDING AND POLISHING LABORER EXAM: CT Abdomen and Pelvis WITH contrast [...] SMS * BMP POC (06/22/2018 3:37 AM GRINDING AND POLISHING LABORER) CO2 POC 29 21 - 32 mmol/L [...] BT MAIN-STATION Afr-Am 1 Performing Organization Address [facility] Phone Number MISYS BT MAIN-STATION 1 * VBG POC (06/22/2018 3:29 AM GRINDING AND POLISHING LABORER) pH, Jaki POC 7.47 (H) 7.33 - [...] mmol/L BT MAIN-STATION 1 Performing Organization Address [facility] Phone Number MISYS BT MAIN-STATION 1 * CBC/DIFF (06/22/2018 3:12 AM GRINDING AND POLISHING LABORER) WBC 6.3 4.5 - 11.0 K/uL BT [...] Phone Number MISYS BT MAIN-STATION 2 after 08/12/2017 Insurance Type Payer Benefit Subscriber ID Effective Phone Address Plan / Dates Group [facility] SELF-PAY [facility] xxxxxxxxx 2018 [phone] [id number] [place] [address] Advance Directives For more information, please contact: [address] [address] Date Inactivated Comments Code Status Date Activated 06/12/2014 11:41 PM Full Code 06/12/2014 6:25 AM 05/20/2012 2:12 PM Full Code 05/19/2012 11:28 AM 05/05/2012 5:50 PM Full Code 05/04/2012 6:05 PM
--- OUTSIDE RECORDS SUMMARY | 2018-10-12 09:52 | XMS REPORT | Clinical Summary ---
Author Author [facility] Organization [facility] Address Unknown Phone Unavailable Care Team Providers Care Log Buyer Name Role Phone PCP Unavailable Allergies Comments [...] hours as needed for Pain or Fever. 07/22/2018 Active gabapentin (NEURONTIN) Take 1 90 capsule 0 300 mg capsule by 8 capsuleIndications: Right mouth 3 times lower quadrant abdominal daily for 30 pain days. Active acetaminophen (TYLENOL) Take 1 tablet 30 tablet 2 500 mg tabletIndications: by mouth 8 Right lower quadrant every 6 hours abdominal pain as needed for Pain. 07/22/2018 Active naproxen (NAPROSYN) 500 Take 1 tablet 60 [...] (Primary Dx) 06/22/2018 Emergency Emergency Medicine after 07/15/2017 Immunizations Name Dates Previously Given Next Due [...] Taken Vital Sign Reading 06/22/2018 6:30 AM FUEL HOUSE ATTENDANT Blood Pressure 174/103 06/22/2018 6:30 AM FUEL HOUSE ATTENDANT Pulse 82 06/22/2018 6:30 AM FUEL HOUSE ATTENDANT Temperature 36.8 C (98.3 F) 06/22/2018 6:30 AM FUEL HOUSE ATTENDANT Respiratory Rate 18 06/22/2018 6:30 AM FUEL HOUSE ATTENDANT Oxygen Saturation 97% - Inhaled Oxygen - Concentration - Weight - - Height - - Body Mass Index - Plan of Treatment Health Maintenance Due Date Last Done Comments Cervical Cancer Scrn (3 1995 Yrs) Breast Cancer Scrn 2014 (Yearly) IMM Influenza Seasonal 04/28/2018Apr to September (>/=19 yrs) Procedures Comments Procedure Name Priority Date/Time Associated Diagnosis UA CHEMISTRIES STAT 06/22/2018 4:30 AM FUEL HOUSE ATTENDANT POCT URINE DIPSTICK - STAT 06/22/2018 4:29 AM FUEL HOUSE ATTENDANT TEST STAT 06/22/2018 4:15 AM FUEL HOUSE ATT[address] CT ABDOMEN AND PELVIS W STAT 06/22/2018 Right lower quadrant CONTRAST - ROUTINE 4:07 AM FUEL HOUSE ATTENDANT abdominal pain BMP POC Routine 06/22/2018 3:37 AM FUEL HOUSE ATTENDANT VBG POC Routine 06/22/2018 3:29 AM FUEL HOUSE ATTENDANT CBC/DIFF STAT 06/22/2018 3:12 AM FUEL HOUSE ATTENDANT after 07/15/2017 Results * UA CHEMISTRIES (06/22/2018 4:30 AM FUEL HOUSE ATTENDANT) Color Yellow BT MAIN-STATION 1 Clarity Clear BT MAIN-STATION 1 Spec [place] >1.035 (H) 1.001 - 1.035 BT MAIN-STATION [...] MAIN-STATION 1 Specimen Urine Performing Organization Address City/[facility] Phone Number MISYS BT MAIN-STATION 1 * POCT URINE DIPSTICK - (06/22/2018 4:29 AM FUEL HOUSE ATTENDANT) present Control not present * TEST (06/22/2018 4:15 AM FUEL HOUSE ATTENDANT) Negative BT MAIN-STATION 1 Specimen Urine Performing Organization Address City/[facility] Phone Number MISYS BT MAIN-STATION 1 * CT ABDOMEN AND PELVIS W CONTRAST - ROUTINE (06/22/2018 4:07 AM FUEL HOUSE ATTENDANT) Impressions Performed At IMPRESSION: SMS No acute [...] Interface, Rad/Mammog In - 06/22/2018 5:06 AM FUEL HOUSE ATTENDANT EXAM: CT Abdomen and Pelvis WITH contrast [...] SMS * BMP POC (06/22/2018 3:37 AM FUEL HOUSE ATTENDANT) CO2 POC 29 21 - 32 mmol/L [...] BT MAIN-STATION Afr-Am 1 Performing Organization Address [facility] Phone Number MISYS BT MAIN-STATION 1 * VBG POC (06/22/2018 3:29 AM FUEL HOUSE ATTENDANT) pH, Jaki POC 7.47 (H) 7.33 - [...] mmol/L BT MAIN-STATION 1 Performing Organization Address [facility] Phone Number MISYS BT MAIN-STATION 1 * CBC/DIFF (06/22/2018 3:12 AM FUEL HOUSE ATTENDANT) WBC 6.3 4.5 - 11.0 K/uL BT [...] Phone Number MISYS BT MAIN-STATION 2 after 07/15/2017 Insurance Type Payer Benefit Subscriber ID Effective Phone Address Plan / Dates Group [facility] SELF-PAY [facility] xxxxxxxxx 2018 [phone] [id number] [place] [address] [id number] amily (Home) [place] [address] Advance Directives For more information, please contact: [address] [address] Date Inactivated Comments Code Status Date Activated 06/12/2014 11:41 PM Full Code 06/12/2014 6:25 AM 05/20/2012 2:12 PM Full Code 05/19/2012 11:28 AM 05/05/2012 5:50 PM Full Code 05/04/2012 6:05 PM
--- OUTSIDE RECORDS SUMMARY | 2018-10-12 09:53 | XMS REPORT | Clinical Summary ---
Author Author [facility] Organization [facility] Address Unknown Phone Unavailable Care Team Providers Care Honing Job Setter Name Role Phone PCP Unavailable Allergies [...] pain 06/12/2014 OCD (obsessive compulsive disorder) 06/04/2013 ETD (generalized anxiety disorder) 03/12/2013 Cocaine abuse, in remission 03/12/2013 Neck fullness 05/19/2012 SOB (shortness of breath) 05/19/2012 Lower extremity weakness 05/04/2012 Encounters Care Team Description Date Type Specialty Manuel Pepe MD Right lower quadrant abdominal pain (Primary Dx) 06/22/2018 Emergency Emergency Medicine after 09/03/2017 Immunizations Name Dates Previously Given Next Due [...] Taken Vital Sign Reading 06/22/2018 6:30 AM CHEESE TESTER Blood Pressure 174/103 06/22/2018 6:30 AM CHEESE TESTER Pulse 82 06/22/2018 6:30 AM CHEESE TESTER Temperature 36.8 C (98.3 F) 06/22/2018 6:30 AM CHEESE TESTER Respiratory Rate 18 06/22/2018 6:30 AM CHEESE TESTER Oxygen Saturation 97% - Inhaled Oxygen - Concentration - Weight - - Height - - Body Mass Index - Plan of Treatment Health Maintenance Due Date Last Done Comments Cervical Cancer Scrn (3 1995 Yrs) Breast Cancer Scrn 2014 (Yearly) IMM Influenza Seasonal 04/28/2018Apr to September (>/=19 yrs) Procedures Comments Procedure Name Priority Date/Time Associated Diagnosis UA CHEMISTRIES STAT 06/22/2018 4:30 AM CHEESE TESTER POCT URINE DIPSTICK - STAT 06/22/2018 4:29 AM CHEESE TESTER TEST STAT 06/22/2018 4:[address] ABDOMEN AND PELVIS W STAT 06/22/2018 Right lower quadrant CONTRAST - ROUTINE 4:07 AM CHEESE TESTER abdominal pain BMP POC Routine 06/22/2018 3:37 AM CHEESE TESTER VBG POC Routine 06/22/2018 3:29 AM CHEESE TESTER CBC/DIFF STAT 06/22/2018 3:12 AM CHEESE TESTER after 09/03/2017 Results * UA CHEMISTRIES (06/22/2018 4:30 AM CHEESE TESTER) Color Yellow BT MAIN-STATION 1 Clarity Clear BT MAIN-STATION 1 Spec [place] >1.035 (H) 1.001 - 1.035 BT MAIN-STATION [...] 1 Specimen Urine Performing Organization Address City/[facility] Phone Number MISYS BT MAIN-STATION 1 * POCT URINE DIPSTICK - (06/22/2018 4:29 AM CHEESE TESTER) present Control not present * TEST (06/22/2018 4:15 AM CHEESE TESTER) Negative BT MAIN-STATION 1 Specimen Urine Performing Organization Address City/[facility] Phone Number MISYS BT MAIN-STATION 1 * CT ABDOMEN AND PELVIS W CONTRAST - ROUTINE (06/22/2018 4:07 AM CHEESE TESTER) Impressions Performed At IMPRESSION: SMS No acute [...] Interface, Rad/Mammog In - 06/22/2018 5:06 AM CHEESE TESTER EXAM: CT Abdomen and Pelvis WITH contrast [...] SMS * BMP POC (06/22/2018 3:37 AM CHEESE TESTER) CO2 POC 29 21 - 32 mmol/L [...] BT MAIN-STATION Afr-Am 1 Performing Organization Address [facility] Phone Number MISYS BT MAIN-STATION 1 * VBG POC (06/22/2018 3:29 AM CHEESE TESTER) pH, Jaki POC 7.47 (H) 7.33 - [...] mmol/L BT MAIN-STATION 1 Performing Organization Address [facility] Phone Number MISYS BT MAIN-STATION 1 * CBC/DIFF (06/22/2018 3:12 AM CHEESE TESTER) WBC 6.3 4.5 - 11.0 K/uL BT [...] Phone Number MISYS BT MAIN-STATION 2 after 09/03/2017 Insurance Type Payer Benefit Subscriber ID Effective Phone Address Plan / Dates Group [facility] SELF-PAY [facility] xxxxxxxxx 2018 [phone] [address] [place] [address] Advance Directives For more information, please contact: [address] [address] Date Inactivated Comments Code Status Date Activated 06/12/2014 11:41 PM Full Code 06/12/2014 6:25 AM 05/20/2012 2:12 PM Full Code 05/19/2012 11:28 AM 05/05/2012 5:50 PM Full Code 05/04/2012 6:05 PM
--- OUTSIDE RECORDS SUMMARY | 2018-10-12 09:53 | XMS REPORT | Clinical Summary ---
Author Author [facility] Organization [facility] Address Unknown Phone Unavailable Care Team Providers Care Shiatsu Therapist Name Role Phone PCP Unavailable Allergies Comments [...] (Primary Dx) 06/22/2018 Emergency Emergency Medicine after 08/01/2017 Immunizations Name Dates Previously Given Next Due [...] Taken Vital Sign Reading 06/22/2018 6:30 AM PROFESSIONAL EMPLOYER CONSULTANT Blood Pressure 174/103 06/22/2018 6:30 AM PROFESSIONAL EMPLOYER CONSULTANT Pulse 82 06/22/2018 6:30 AM PROFESSIONAL EMPLOYER CONSULTANT Temperature 36.8 C (98.3 F) 06/22/2018 6:30 AM PROFESSIONAL EMPLOYER CONSULTANT Respiratory Rate 18 06/22/2018 6:30 AM PROFESSIONAL EMPLOYER CONSULTANT Oxygen Saturation 97% - Inhaled Oxygen - Concentration - Weight - - Height - - Body Mass Index - Plan of Treatment Health Maintenance Due Date Last Done Comments Cervical Cancer Scrn (3 1995 Yrs) Breast Cancer Scrn 2014 (Yearly) IMM Influenza Seasonal 04/28/2018Apr to September (>/=19 yrs) Procedures Comments Procedure Name Priority Date/Time Associated Diagnosis UA CHEMISTRIES STAT 06/22/2018 4:30 AM PROFESSIONAL EMPLOYER CONSULTANT POCT URINE DIPSTICK - STAT 06/22/2018 4:29 AM PROFESSIONAL EMPLOYER CONSULTANT TEST STAT 06/22/2018 4:15 AM PROFESSIONAL EMPLOYER CONSULTANT CT ABDOMEN AND PELVIS W STAT 06/22/2018 Right lower quadrant CONTRAST - ROUTINE 4:07 AM PROFESSIONAL EMPLOYER CONSULTANT abdominal pain BMP POC Routine 06/22/2018 3:37 AM PROFESSIONAL EMPLOYER CONSULTANT VBG POC Routine 06/22/2018 3:29 AM PROFESSIONAL EMPLOYER CONSULTANT CBC/DIFF STAT 06/22/2018 3:12 AM PROFESSIONAL EMPLOYER CONSULTANT after 08/01/2017 Results * UA CHEMISTRIES (06/22/2018 4:30 AM PROFESSIONAL EMPLOYER CONSULTANT) Color Yellow BT MAIN-STATION 1 Clarity Clear BT MAIN-STATION 1 Spec [place] >1.035 (H) 1.001 - 1.035 BT MAIN-STATION [...] MAIN-STATION 1 Specimen Urine Performing Organization Address City/[facility] Phone Number MISYS BT MAIN-STATION 1 * POCT URINE DIPSTICK - (06/22/2018 4:29 AM PROFESSIONAL EMPLOYER CONSULTANT) present Control not present * TEST (06/22/2018 4:15 AM PROFESSIONAL EMPLOYER CONSULTANT) Negative BT MAIN-STATION 1 Specimen Urine Performing Organization Address City/[facility] Phone Number MISYS BT MAIN-STATION 1 * CT ABDOMEN AND PELVIS W CONTRAST - ROUTINE (06/22/2018 4:07 AM PROFESSIONAL EMPLOYER CONSULTANT) Impressions Performed At IMPRESSION: SMS No acute [...] Interface, Rad/Mammog In - 06/22/2018 5:06 AM PROFESSIONAL EMPLOYER CONSULTANT EXAM: CT Abdomen and Pelvis WITH contrast [...] SMS * BMP POC (06/22/2018 3:37 AM PROFESSIONAL EMPLOYER CONSULTANT) CO2 POC 29 21 - 32 mmol/L [...] BT MAIN-STATION Afr-Am 1 Performing Organization Address [facility] Phone Number MISYS BT MAIN-STATION 1 * VBG POC (06/22/2018 3:29 AM PROFESSIONAL EMPLOYER CONSULTANT) pH, Jaki POC 7.47 (H) 7.33 - 7.43 BT MAIN-STATION 1 pCO2, Jaki POC 44.4 38.0 - 50.0 mm Hg BT MAIN-STATION 1 pO2, Jaki POC 43 (L) 50 - 75 mm Hg BT MAIN-STATION 1 Base Excess, 8 mmol/L BT MAIN-STATION Jaki POC 1 HCO3, Jaik POC 32.4 (H) 22.0 - 26.0 mmol/L BT MAIN-STATION 1 % Sat, Jaki POC 81 60 - 85 % BT MAIN-STATION 1 Lactic Acid, 1.29 0.4 - 2.0 mmol/L BT MAIN-STATION Jaki POC 1 Sample Type Jaki BT MAIN-STATION 1 TCO2, JAKI POC 34 (H) 21 - 32 mmol/L BT MAIN-STATION 1 Performing Organization Address [facility] Phone Number MISYS BT MAIN-STATION 1 * CBC/DIFF (06/22/2018 3:12 AM PROFESSIONAL EMPLOYER CONSULTANT) WBC 6.3 4.5 - 11.0 K/uL BT [...] Phone Number MISYS BT MAIN-STATION 2 after 08/01/2017 Insurance Type Payer Benefit Subscriber ID Effective Phone Address Plan / Dates Group [facility] SELF-PAY [facility] xxxxxxxxx 2018 [phone] [address] [place] [place] [address] Advance Directives For more information, please contact: [address] [address] Date Inactivated Comments Code Status Date Activated 06/12/2014 11:41 PM Full Code 06/12/2014 6:25 AM 05/20/2012 2:12 PM Full Code 05/19/2012 11:28 AM 05/05/2012 5:50 PM Full Code 05/04/2012 6:05 PM
--- OUTSIDE RECORDS SUMMARY | 2018-10-12 09:53 | XMS REPORT | Clinical Summary ---
Author Author [facility] Organization [facility] Address Unknown Phone Unavailable Care Team Providers Care Shield Runner Name Role Phone PCP Unavailable Allergies Comments [...] (Primary Dx) 06/22/2018 Emergency Emergency Medicine after 08/23/2017 Immunizations Name Dates Previously Given Next Due [...] Taken Vital Sign Reading 06/22/2018 6:30 AM MECHANICAL ESTIMATOR Blood Pressure 174/103 06/22/2018 6:30 AM MECHANICAL ESTIMATOR Pulse 82 06/22/2018 6:30 AM MECHANICAL ESTIMATOR Temperature 36.8 C (98.3 F) 06/22/2018 6:30 AM MECHANICAL ESTIMATOR Respiratory Rate 18 06/22/2018 6:30 AM MECHANICAL ESTIMATOR Oxygen Saturation 97% - Inhaled Oxygen - Concentration - Weight - - Height - - Body Mass Index - Plan of Treatment Health Maintenance Due Date Last Done Comments Cervical Cancer Scrn (3 1995 Yrs) Breast Cancer Scrn 2014 (Yearly) IMM Influenza Seasonal 04/28/2018Apr to September (>/=19 yrs) Procedures Comments Procedure Name Priority Date/Time Associated Diagnosis UA CHEMISTRIES STAT 06/22/2018 4:30 AM MECHANICAL ESTIMATOR POCT URINE DIPSTICK - STAT 06/22/2018 4:29 AM MECHANICAL ESTIMATOR TEST STAT 06/22/2018 4:[address] ABDOMEN AND PELVIS W STAT 06/22/2018 Right lower quadrant CONTRAST - ROUTINE 4:07 AM MECHANICAL ESTIMATOR abdominal pain BMP POC Routine 06/22/2018 3:37 AM MECHANICAL ESTIMATOR VBG POC Routine 06/22/2018 3:29 AM MECHANICAL ESTIMATOR CBC/DIFF STAT 06/22/2018 3:12 AM MECHANICAL ESTIMATOR after 08/23/2017 Results * UA CHEMISTRIES (06/22/2018 4:30 AM MECHANICAL ESTIMATOR) Color Yellow BT MAIN-STATION 1 Clarity Clear BT MAIN-STATION 1 Spec [place] >1.035 (H) 1.001 - 1.035 BT MAIN-STATION [...] MAIN-STATION 1 Specimen Urine Performing Organization Address City/[facility] [address]/[facility] Phone Number MISYS BT MAIN-STATION 1 * POCT URINE DIPSTICK - (06/22/2018 4:29 AM MECHANICAL ESTIMATOR) present Control not present * TEST (06/22/2018 4:15 AM MECHANICAL ESTIMATOR) Negative BT MAIN-STATION 1 Specimen Urine Performing Organization Address City/[facility] [address]/[facility] Phone Number MISYS BT MAIN-STATION 1 * CT ABDOMEN AND PELVIS W CONTRAST - ROUTINE (06/22/2018 4:07 AM MECHANICAL ESTIMATOR) Impressions Performed At IMPRESSION: SMS No acute [...] Interface, Rad/Mammog In - 06/22/2018 5:06 AM MECHANICAL ESTIMATOR EXAM: CT Abdomen and Pelvis WITH contrast [...] SMS * BMP POC (06/22/2018 3:37 AM MECHANICAL ESTIMATOR) CO2 POC 29 21 - 32 mmol/L [...] BT MAIN-STATION Afr-Am 1 Performing Organization Address [facility] [address]/[facility] Phone Number MISYS BT MAIN-STATION 1 * VBG POC (06/22/2018 3:29 AM MECHANICAL ESTIMATOR) pH, Jaki POC 7.47 (H) 7.33 - [...] mmol/L BT MAIN-STATION 1 Performing Organization Address [facility] [address]/[facility] Phone Number MISYS BT MAIN-STATION 1 * CBC/DIFF (06/22/2018 3:12 AM MECHANICAL ESTIMATOR) WBC 6.3 4.5 - 11.0 K/uL BT [...] Phone Number MISYS BT MAIN-STATION 2 after 08/23/2017 Insurance Type Payer Benefit Subscriber ID Effective Phone Address Plan / Dates Group [facility] SELF-PAY [facility] xxxxxxxxx 2018 [phone] [address] [place] [address] Advance Directives For more information, please contact: [address] [address] Date Inactivated Comments Code Status Date Activated 06/12/2014 11:41 PM Full Code 06/12/2014 6:25 AM 05/20/2012 2:12 PM Full Code 05/19/2012 11:28 AM 05/05/2012 5:50 PM Full Code 05/04/2012 6:05 PM
--- OUTSIDE RECORDS SUMMARY | 2018-10-12 09:53 | XMS REPORT | Clinical Summary ---
Author Author [facility] Organization [facility] Address Unknown Phone Unavailable Care Team Providers Care Account Analyst Name Role Phone PCP Unavailable Allergies Comments [...] (Primary Dx) 06/22/2018 Emergency Emergency Medicine after 07/08/2017 Immunizations Name Dates Previously Given Next Due [...] Taken Vital Sign Reading 06/22/2018 6:30 AM PETROLEUM BLENDING PLANT OPERATOR Blood Pressure 174/103 06/22/2018 6:30 AM [employer]ROLE[employer]ING [employer] OPERATOR Pulse 82 06/22/2018 6:30 AM [employer]ROLE[employer]ENDING [employer]ANT OPERATOR Temperature 36.8 C (98.3 F) 06/22/2018 6:30 AM [employer]LE[employer]ING [employer] OPERATOR Respiratory Rate 18 06/22/2018 6:30 AM [employer]ROLE[employer]ING PLANT OPERATOR Oxygen Saturation 97% - Inhaled Oxygen - Concentration - Weight - - Height - - Body Mass Index - Plan of Treatment Health Maintenance Due Date Last Done Comments Cervical Cancer Scrn (3 1995 Yrs) Breast Cancer Scrn 2014 (Yearly) IMM Influenza Seasonal 04/28/2018Apr to September (>/=19 yrs) Procedures Comments Procedure Name Priority Date/Time Associated Diagnosis UA CHEMISTRIES STAT 06/22/2018 4:30 AM [employer]ANT OPERATOR POCT URINE DIPSTICK - STAT 06/22/2018 4:29 AM [employer]LE[employer]ING [employer]ANT OPERATOR TEST STAT 06/22/2018 4:15 AM PETROLE[employer] OPERATOR CT ABDOMEN AND PELVIS W STAT 06/22/2018 Right lower quadrant CONTRAST - ROUTINE 4:07 AM [employer] OPERATOR abdominal pain BMP POC Routine 06/22/2018 3:37 AM [employer] OPERATOR VBG POC Routine 06/22/2018 3:29 AM [employer]ING [employer] OPERATOR CBC/DIFF STAT 06/22/2018 3:12 AM [employer]ING [employer] OPERATOR after 07/08/2017 Results * UA CHEMISTRIES (06/22/2018 4:30 AM [employer]ROLE[employer] OPERATOR) Color Yellow BT MAIN-STATION 1 Clarity Clear BT MAIN-STATION 1 Spec [place] >1.035 (H) 1.001 - 1.035 BT MAIN-STATION [...] MAIN-STATION 1 Specimen Urine Performing Organization Address City/[facility] Phone Number MISYS BT MAIN-STATION 1 * POCT URINE DIPSTICK - (06/22/2018 4:29 AM [employer]ANT OPERATOR) present Control not present * TEST (06/22/2018 4:15 AM PETROLEUM BLENDING PLANT OPERATOR) Negative BT MAIN-STATION 1 Specimen Urine Performing Organization Address City/[facility] Phone Number MISYS BT MAIN-STATION 1 * CT ABDOMEN AND PELVIS W CONTRAST - ROUTINE (06/22/2018 4:07 AM [employer]ROLE[employer]ANT OPERATOR) Impressions Performed At IMPRESSION: SMS No [...] Interface, Rad/Mammog In - 06/22/2018 5:06 AM PETROLEUM BL[employer]ING PLANT OPERATOR EXAM: CT Abdomen and Pelvis WITH [...] SMS * BMP POC (06/22/2018 3:37 AM PETROLEUM BLENDING PLANT OPERATOR) CO2 POC 29 21 - 32 [...] BT MAIN-STATION Afr-Am 1 Performing Organization Address [facility] Phone Number MISYS BT MAIN-STATION 1 * VBG POC (06/22/2018 3:29 AM PETROLEUM BL[employer]ING PLANT OPERATOR) pH, Jaki POC 7.47 (H) 7.33 [...] mmol/L BT MAIN-STATION 1 Performing Organization Address [facility] Phone Number MISYS BT MAIN-STATION 1 * CBC/DIFF (06/22/2018 3:12 AM PETROLEUM BLENDING PLANT OPERATOR) WBC 6.3 4.5 - 11.0 K/uL [...] Phone Number MISYS BT MAIN-STATION 2 after 07/08/2017 Insurance Type Payer Benefit Subscriber ID Effective Phone Address Plan / Dates Group [facility] SELF-PAY [facility] xxxxxxxxx 2018 [phone] [id number] [place] [address] [id number] amily (Home) [place] [address] Advance Directives For more information, please contact: [address] [address] Date Inactivated Comments Code Status Date Activated 06/12/2014 11:41 PM Full Code 06/12/2014 6:25 AM 05/20/2012 2:12 PM Full Code 05/19/2012 11:28 AM 05/05/2012 5:50 PM Full Code 05/04/2012 6:05 PM
--- OUTSIDE RECORDS SUMMARY | 2018-10-12 09:53 | XMS REPORT | Clinical Summary ---
Author Author [facility] Organization [facility] Address Unknown Phone Unavailable Care Team Providers Care Genetic Scientist Name Role Phone PCP Unavailable Allergies Comments [...] (Primary Dx) 06/22/2018 Emergency Emergency Medicine after 10/07/2017 Immunizations Name Dates Previously Given Next Due [...] Taken Vital Sign Reading 06/22/2018 6:30 AM INFRASTRUCTURE DEVELOPER Blood Pressure 174/103 06/22/2018 6:30 AM INFRASTRUCTURE DEVELOPER Pulse 82 06/22/2018 6:30 AM INFRASTRUCTURE DEVELOPER Temperature 36.8 C (98.3 F) 06/22/2018 6:30 AM INFRASTRUCTURE DEVELOPER Respiratory Rate 18 06/22/2018 6:30 AM INFRASTRUCTURE DEVELOPER Oxygen Saturation 97% - Inhaled Oxygen - Concentration - Weight - - Height - - Body Mass Index - Plan of Treatment Health Maintenance Due Date Last Done Comments Cervical Cancer Scrn (3 1995 Yrs) Breast Cancer Scrn 2014 (Yearly) IMM Influenza Seasonal 04/28/2018Apr to September (>/=19 yrs) Procedures Comments Procedure Name Priority Date/Time Associated Diagnosis UA CHEMISTRIES STAT 06/22/2018 4:30 AM INFRASTRUCTURE DEVELOPER POCT URINE DIPSTICK - STAT 06/22/2018 4:29 AM INFRASTRUCTURE DEVELOPER TEST STAT 06/22/2018 4:[address] ABDOMEN AND PELVIS W STAT 06/22/2018 Right lower quadrant CONTRAST - ROUTINE 4:07 AM INFRASTRUCTURE DEVELOPER abdominal pain BMP POC Routine 06/22/2018 3:37 AM INFRASTRUCTURE DEVELOPER VBG POC Routine 06/22/2018 3:29 AM INFRASTRUCTURE DEVELOPER CBC/DIFF STAT 06/22/2018 3:12 AM INFRASTRUCTURE DEVELOPER after 10/07/2017 Results * UA CHEMISTRIES (06/22/2018 4:30 AM INFRASTRUCTURE DEVELOPER) Color Yellow BT MAIN-STATION 1 Clarity Clear BT MAIN-STATION 1 Spec [place] >1.035 (H) 1.001 - 1.035 BT MAIN-STATION [...] MAIN-STATION 1 Specimen Urine Performing Organization Address City/[facility] Phone Number MISYS BT MAIN-STATION 1 * POCT URINE DIPSTICK - (06/22/2018 4:29 AM INFRASTRUCTURE DEVELOPER) present Control not present * TEST (06/22/2018 4:15 AM INFRASTRUCTURE DEVELOPER) Negative BT MAIN-STATION 1 Specimen Urine Performing Organization Address City/[facility] Phone Number MISYS BT MAIN-STATION 1 * CT ABDOMEN AND PELVIS W CONTRAST - ROUTINE (06/22/2018 4:07 AM INFRASTRUCTURE DEVELOPER) Impressions Performed At IMPRESSION: SMS No acute [...] Interface, Rad/Mammog In - 06/22/2018 5:06 AM INFRASTRUCTURE DEVELOPER EXAM: CT Abdomen and Pelvis WITH contrast [...] SMS * BMP POC (06/22/2018 3:37 AM INFRASTRUCTURE DEVELOPER) CO2 POC 29 21 - 32 mmol/L [...] BT MAIN-STATION Afr-Am 1 Performing Organization Address [facility] Phone Number MISYS BT MAIN-STATION 1 * VBG POC (06/22/2018 3:29 AM INFRASTRUCTURE DEVELOPER) pH, Jaki POC 7.47 (H) 7.33 - [...] mmol/L BT MAIN-STATION 1 Performing Organization Address [facility] Phone Number MISYS BT MAIN-STATION 1 * CBC/DIFF (06/22/2018 3:12 AM INFRASTRUCTURE DEVELOPER) WBC 6.3 4.5 - 11.0 K/uL BT [...] Phone Number MISYS BT MAIN-STATION 2 after 10/07/2017 Insurance Type Payer Benefit Subscriber ID Effective Phone Address Plan / Dates Group [facility] SELF-PAY [facility] xxxxxxxxx 2018 [phone] [id number] [place] [address] Advance Directives For more information, please contact: [address] [address] Date Inactivated Comments Code Status Date Activated 06/12/2014 11:41 PM Full Code 06/12/2014 6:25 AM 05/20/2012 2:12 PM Full Code 05/19/2012 11:28 AM 05/05/2012 5:50 PM Full Code 05/04/2012 6:05 PM
--- OUTSIDE RECORDS SUMMARY | 2018-10-12 09:53 | XMS REPORT | Clinical Summary ---
Author Author [facility] Organization [facility] Address Unknown Phone Unavailable Care Team Providers Care Interlocking Machine Operator Name Role Phone PCP Unavailable Allergies Comments [...] (Primary Dx) 06/22/2018 Emergency Emergency Medicine after 09/11/2017 Immunizations Name Dates Previously Given Next Due [...] Taken Vital Sign Reading 06/22/2018 6:30 AM REACHER Blood Pressure 174/103 06/22/2018 6:30 AM REACHER Pulse 82 06/22/2018 6:30 AM REACHER Temperature 36.8 C (98.3 F) 06/22/2018 6:30 AM REACHER Respiratory Rate 18 06/22/2018 6:30 AM REACHER Oxygen Saturation 97% - Inhaled Oxygen - Concentration - Weight - - Height - - Body Mass Index - Plan of Treatment Health Maintenance Due Date Last Done Comments Cervical Cancer Scrn (3 1995 Yrs) Breast Cancer Scrn 2014 (Yearly) IMM Influenza Seasonal 04/28/2018Apr to September (>/=19 yrs) Procedures Comments Procedure Name Priority Date/Time Associated Diagnosis UA CHEMISTRIES STAT 06/22/2018 4:30 AM REACHER POCT URINE DIPSTICK - STAT 06/22/2018 4:29 AM REACHER TEST STAT 06/22/2018 4:[address] ABDOMEN AND PELVIS W STAT 06/22/2018 Right lower quadrant CONTRAST - ROUTINE 4:07 AM REACHER abdominal pain BMP POC Routine 06/22/2018 3:37 AM REACHER VBG POC Routine 06/22/2018 3:29 AM REACHER CBC/DIFF STAT 06/22/2018 3:12 AM REACHER after 09/11/2017 Results * UA CHEMISTRIES (06/22/2018 4:30 AM REACHER) Color Yellow BT MAIN-STATION 1 Clarity Clear BT MAIN-STATION 1 Spec [place] >1.035 (H) 1.001 - 1.035 BT MAIN-STATION [...] MAIN-STATION 1 Specimen Urine Performing Organization Address City/[facility] Phone Number MISYS BT MAIN-STATION 1 * POCT URINE DIPSTICK - (06/22/2018 4:29 AM REACHER) present Control not present * TEST (06/22/2018 4:15 AM REACHER) Negative BT MAIN-STATION 1 Specimen Urine Performing Organization Address City/[facility] Phone Number MISYS BT MAIN-STATION 1 * CT ABDOMEN AND PELVIS W CONTRAST - ROUTINE (06/22/2018 4:07 AM REACHER) Impressions Performed At IMPRESSION: SMS No acute [...] Interface, Rad/Mammog In - 06/22/2018 5:06 AM REACHER EXAM: CT Abdomen and Pelvis WITH contrast [...] SMS * BMP POC (06/22/2018 3:37 AM REACHER) CO2 POC 29 21 - 32 mmol/L [...] BT MAIN-STATION Afr-Am 1 Performing Organization Address [facility] Phone Number MISYS BT MAIN-STATION 1 * VBG POC (06/22/2018 3:29 AM REACHER) pH, Jaki POC 7.47 (H) 7.33 - [...] mmol/L BT MAIN-STATION 1 Performing Organization Address [facility] Phone Number MISYS BT MAIN-STATION 1 * CBC/DIFF (06/22/2018 3:12 AM REACHER) WBC 6.3 4.5 - 11.0 K/uL BT [...] Phone Number MISYS BT MAIN-STATION 2 after 09/11/2017 Insurance Type Payer Benefit Subscriber ID Effective Phone Address Plan / Dates Group [facility] SELF-PAY [facility] xxxxxxxxx 2018 [phone] [id number] [place] [address] Advance Directives For more information, please contact: [address] [address] Date Inactivated Comments Code Status Date Activated 06/12/2014 11:41 PM Full Code 06/12/2014 6:25 AM 05/20/2012 2:12 PM Full Code 05/19/2012 11:28 AM 05/05/2012 5:50 PM Full Code 05/04/2012 6:05 PM
--- OUTSIDE RECORDS SUMMARY | 2018-10-12 09:54 | XMS REPORT ---
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 Allergies, Adverse Reactions, Alerts Allergy Name Allergy Type Status Severity Reaction(s) Onset Date Inactive Date Treating Clinician Comments lisinopril DA Active SV 2018-09-30 00:00:00 lisinopril DA Active SV 2016-04-09 00:00:00 Medications This patient has no known medications. Encounters Start Date/Time End Date/Time Encounter Type Admission Type Attending Clinicians Care Facility Care Department Encounter ID 2018-06-22 03:55:21 2018-06-22 03:55:21 Emergency [facility] [id number] 2018-06-22 02:00:44 2018-06-22 02:00:44 Emergency [facility] [id number] 2017-10-22 23:55:00 2017-10-23 08:14:00 Emergency [facility] [id number] 2017-10-13 00:56:00 2017-10-13 17:40:00 Outpatient [facility] [id number] Results Test Description Test Time Test Comments Text Results Atomic Results Result Comments CBC W/AUTO DIFF 2018-10-03 05:53:00 WHITE BLOOD CELL (test code=WBC) 6.4 K/mm3 4.5-12.5 RED BLOOD CELL (test code=RBC) 4.13 mill/mm3 3.7-5.2 HEMOGLOBIN (test code=HGB) 11.3 gram/dL 11.5-15.5 HEMATOCRIT (test code=HCT) 35.7 % 36.0-46.0 MEAN CELL VOLUME (test code=MCV) 86.4 fL 80-98 MEAN CELL HGB (test code=MCH) 27.4 picogram 27.0-33.0 MEAN CELL HGB CONCETRATION (test code=MCHC) 31.7 gram/dL 33.0-36.0 RED CELL DISTRIBUTION WIDTH (test code=RDW) 14.8 % 11.6-16.2 RED CELL DISTRIBUTION WIDTH SD (test code=RDW-SD) 47.2 fL 37.0-51.0 PLATELET COUNT (test code=PLT) 205 K/mm3 150-450 MEAN PLATELET VOLUME (test code=MPV) 11.0 fL 6.7-11.0 NEUTROPHIL % (test code=NT%) 49.8 % 39.0-69.0 IMMATURE GRANULOCYTE % (test code=IG%) 0.2 % 0.0-5.0 LYMPHOCYTE % (test code=LY%) 42.0 % 25.0-55.0 MONOCYTE % (test code=MO%) 6.7 % 0.0-10.0 EOSINOPHIL % (test code=EO%) 0.8 % 0.0-5.0 BASOPHIL % (test code=BA%) 0.5 % 0.0-1.0 NUCLEATED RBC % (test code=NRBC%) 0.0 % 0-0 NEUTROPHIL # (test code=NT#) 3.21 K/mm3 1.8-7.7 IMMATURE GRANULOCYTE # (test code=IG#) 0.01 x10 3/uL 0-0.03 LYMPHOCYTE # (test code=LY#) 2.70 K/mm3 1.0-5.0 MONOCYTE # (test code=MO#) 0.43 K/mm3 0-0.8 EOSINOPHIL # (test code=EO#) 0.05 K/mm3 0.0-0.5 BASOPHIL # (test code=BA#) 0.03 K/mm3 0.0-0.2 NUCLEATED RBC # (test code=NRBC#) 0.00 K/mm3 0.0-0.1 MANUAL DIFF REQUIRED (test code=MDIFF) NO BASIC METABOLIC [id number] 05:40:00* Test Item Value Reference Range Comments SODIUM (test code=NA) 138 mmol/L 136-145 POTASSIUM (test code=K) 4.0 mmol/L 3.5-5.1 CHLORIDE (test code=CL) 102.0 mmol/L 98-107 CARBON DIOXIDE (test code=CO2) 27.0 mmol/L 21-32 ANION GAP (test code=GAP) 13.0 10-20 GLUCOSE (test code=GLU) 96 mg/dL 74-106 BLOOD UREA NITROGEN (test code=BUN) 20 mg/dL 7-18 GLOMERULAR FILTRATION RATE (test code=GFR) > 60 mL/min >=60 Estimated GFR by using Modified MDRD formula.Chronic kidney disease is defined as either kidney damageor GFR <60 mL/min/1.73 m2 for >3 months. CREATININE (test code=CREAT) 1.00 mg/dL 0.55-1.02 Note change in reference range due to change in reagent. BUN/CREATININE RATIO (test code=BUN/CREA) 20.1 10-20 CALCIUM (test code=CA) 9.0 mg/dL 8.5-10.1 BASIC METABOLIC [id number] 05:28:00* Test Item Value Reference Range Comments SODIUM (test code=NA) 138 mmol/L 136-145 POTASSIUM (test code=K) 4.0 mmol/L 3.5-5.1 CHLORIDE (test code=CL) 102.0 mmol/L 98-107 CARBON DIOXIDE (test code=CO2) mmol/L 21-32 ANION GAP (test code=GAP) 10-20 GLUCOSE (test code=GLU) mg/dL 74-106 BLOOD UREA NITROGEN (test code=BUN) mg/dL 7-18 GLOMERULAR FILTRATION RATE (test code=GFR) mL/min >=60 CREATININE (test code=CREAT) mg/dL 0.55-1.02 BUN/CREATININE RATIO (test code=BUN/CREA) 10-20 CALCIUM (test code=CA) mg/dL 8.5-10.1 DRUGS OF ABUSE SCREEN [id number] 17:07:00* Test Item Value Reference Range Comments UA PH DIPSTICK (test code=WADE) 5.0 5.0-8.0 URN COCAINE (test code=COCAURN) NEGATIVE <300 ng/mL URN CANNABINOIDS (test code=CANNABURN) POSITIVE <50 ng/mL This test provides only a preliminary test result. A morespecific alternate chemical method must be used in order toobtain a confirmed analytical result. Gas chromatography/mass spectrometry (GC/MS) is thepreferred confirmatory method. Other chemical confirmationmethods are available. Clinical consideration and professional judgment should be applied to any drug of abusetest result, particularly when preliminary positive resultsare used.Unconfirmed screening results must not be used fornon-medical purposes (e.g., employment testing, legaltesting). URN AMPHETAMINE (test code=AMPHETURN) NEGATIVE <1000 ng/mL URN BARBITURATE (test code=BARBITURN) NEGATIVE <200 ng/mL URN BENZODIAZEPINE (test code=BENZOURN) POSITIVE <200 ng/mL This test provides only a preliminary test result. A morespecific alternate chemical method must be used in order toobtain a confirmed analytical result. Gas chromatography/mass spectrometry (GC/MS) is thepreferred confirmatory method. Other chemical confirmationmethods are available. Clinical consideration and professional judgment should be applied to any drug of abusetest result, particularly when preliminary positive resultsare used.Unconfirmed screening results must not be used fornon-medical purposes (e.g., employment testing, legaltesting). URN OPIATES (test code=OPIATURN) POSITIVE <300 ng/mL This test provides only a preliminary test result. A morespecific alternate chemical method must be used in order toobtain a confirmed analytical result. Gas chromatography/mass spectrometry (GC/MS) is thepreferred confirmatory method. Other chemical confirmationmethods are available. Clinical consideration and professional judgment should be applied to any drug of abusetest result, particularly when preliminary positive resultsare used.Unconfirmed screening results must not be used fornon-medical purposes (e.g., employment testing, legaltesting). URN PHENCYCLIDINE (PCP) (test code=PHENCURN) NEGATIVE <25 ng/mL URN METHADONE (test code=METHAURN) NEGATIVE <300 ng/mL LIPID PROFILE (CORONARY RISK)2018-10-01 16:27:00* Test Item Value Reference Range Comments TRIGLYCERIDES (test code=TRIG) 144 mg/dL 20-150 CHOLESTEROL (test code=CHOL) 144 mg/dL 0-200 CHOLESTEROL/HDL RATIO (test code=CHOLHDL) 4.0 RATIO 0-4.9 RISK ASSOCIATED WITH CHOL/HDL RATIOS: Risk Male Female1/2 AVERAGE 3.43 3.27AVERAGE 4.97 4.442X AVERAGE 9.55 7.053X AVERAGE 23.39 11.04 REFERENCE VALUE IS RELATED TO RISK LEVELS ASRECOMMENDED BY THE [facility]. HEART, LUNG, AND BLOOD INST. HDL CHOLESTEROL (test code=HDL) 36 mg/dL 40-60 LIPOPROTEIN LDL (test code=LDL) 94 mg/dL 100-129 Reference Interval: mg/dL mmol/L Optimal <100 <2.6Near/above optimal 100-129 2.6- 3.3Borderline High 130-159 3.4-4.1High 160-189 4.1-4.9Very High >=190 >=4.9=========This LDL result is a direct measurement.========= DRUGS OF ABUSE SCREEN [id number] 16:17:00* Test Item Value Reference Range Comments UA PH DIPSTICK (test code=WADE) 5.0-8.0 URN COCAINE (test code=COCAURN) NEGATIVE <300 ng/mL URN CANNABINOIDS (test code=CANNABURN) POSITIVE <50 ng/mL This test provides only a preliminary test result. A morespecific alternate chemical method must be used in order toobtain a confirmed analytical result. Gas chromatography/mass spectrometry (GC/MS) is thepreferred confirmatory method. Other chemical confirmationmethods are available. Clinical consideration and professional judgment should be applied to any drug of abusetest result, particularly when preliminary positive resultsare used.Unconfirmed screening results must not be used fornon-medical purposes (e.g., employment testing, legaltesting). URN AMPHETAMINE (test code=AMPHETURN) NEGATIVE <1000 ng/mL URN BARBITURATE (test code=BARBITURN) NEGATIVE <200 ng/mL URN BENZODIAZEPINE (test code=BENZOURN) POSITIVE <200 ng/mL This test provides only a preliminary test result. A morespecific alternate chemical method must be used in order toobtain a confirmed analytical result. Gas chromatography/mass spectrometry (GC/MS) is thepreferred confirmatory method. Other chemical confirmationmethods are available. Clinical consideration and professional judgment should be applied to any drug of abusetest result, particularly when preliminary positive resultsare used.Unconfirmed screening results must not be used fornon-medical purposes (e.g., employment testing, legaltesting). URN OPIATES (test code=OPIATURN) POSITIVE <300 ng/mL This test provides only a preliminary test result. A morespecific alternate chemical method must be used in order toobtain a confirmed analytical result. Gas chromatography/mass spectrometry (GC/MS) is thepreferred confirmatory method. Other chemical confirmationmethods are available. Clinical consideration and professional judgment should be applied to any drug of abusetest result, particularly when preliminary positive resultsare used.Unconfirmed screening results must not be used fornon-medical purposes (e.g., employment testing, legaltesting). URN PHENCYCLIDINE (PCP) (test code=PHENCURN) NEGATIVE <25 ng/mL URN METHADONE (test code=METHAURN) NEGATIVE <300 ng/mL URINALYSIS [id number] 15:55:00* Test Item Value Reference Range Comments UA COLOR (test code=COLU) YELLOW YELLOW UA APPEARANCE (test code=APPU) CLEAR CLEAR UA GLUCOSE DIPSTICK (test code=DGLUU) NEGATIVE mg/dL NEGATIVE UA BILIRUBIN DIPSTICK (test code=BILU) NEGATIVE mg/dL NEGATIVE UA KETONE DIPSTICK (test code=KETU) Negative mg/dL NEGATIVE UA SPECIFIC GRAVITY (test code=SGU) 1.047 1.001-1.035 UA BLOOD DIPSTICK (test code=DANIS) Negative NEGATIVE UA PH DIPSTICK (test code=WADE) 5.0 5.0-8.0 UA PROTEIN DIPSTICK (test code=PROU) 30 (1+) mg/dL NEGATIVE UA UROBILINIOGEN DIPSTICK (test code=URO) NEGATIVE mg/dL NEGATIVE UA NITRITE DIPSTICK (test code=AMANDA) NEGATIVE NEGATIVE UA LEUKOCYTE ESTERASE W REFLEX (test code=LEUUR) NEGATIVE NEGATIVE UA WBC (test code=WBCU) 0-5 #/HPF 0-5 UA RBC (test code=RBCU) 0-2 #/HPF 0-5 UA EPITHELIAL CELLS (test code=EPIU) FEW per HPF FEW UA BACTERIA (test code=BACU) FEW #/HPF NONE UA MUCUS (test code=MUCU) FEW #/LPF FEW Urine Source? Clean CatchURINALYSIS [id number] 15:44:00* Test Item Value Reference Range Comments UA COLOR (test code=COLU) YELLOW YELLOW UA APPEARANCE (test code=APPU) CLEAR CLEAR UA GLUCOSE DIPSTICK (test code=DGLUU) NEGATIVE mg/dL NEGATIVE UA BILIRUBIN DIPSTICK (test code=BILU) NEGATIVE mg/dL NEGATIVE UA KETONE DIPSTICK (test code=KETU) Negative mg/dL NEGATIVE UA SPECIFIC GRAVITY (test code=SGU) 1.047 1.001-1.035 UA BLOOD DIPSTICK (test code=DANIS) Negative NEGATIVE UA PH DIPSTICK (test code=WADE) 5.0 5.0-8.0 UA PROTEIN DIPSTICK (test code=PROU) 30 (1+) mg/dL NEGATIVE UA UROBILINIOGEN DIPSTICK (test code=URO) NEGATIVE mg/dL NEGATIVE UA NITRITE DIPSTICK (test code=AMANDA) NEGATIVE NEGATIVE UA LEUKOCYTE ESTERASE W REFLEX (test code=LEUUR) NEGATIVE NEGATIVE UA WBC (test code=WBCU) per HPF 0-5 Urine Source? Clean [id number] 12:21:00* Test Item Value Reference Range Comments TROPONIN-I (test code=TROPI) <0.015 ng/mL 0-0.045 COMMENTS TO STAFF MINE WARFARE OFFICER: COLLECT 3 HOURS AFTER PREVIOUS [id number] 07:59:00* Test Item Value Reference Range Comments TROPONIN-I (test code=TROPI) <0.015 ng/mL 0-0.045 COMMENTS TO STAFF MINE WARFARE OFFICER: COLLECT 3 HOURS AFTER PREVIOUS SAMPLEBASIC METABOLIC [id number] 07:55:00* Test Item Value Reference Range Comments SODIUM (test code=NA) 139 mmol/L 136-145 POTASSIUM (test code=K) 3.9 mmol/L 3.5-5.1 CHLORIDE (test code=CL) 102.0 mmol/L 98-107 CARBON DIOXIDE (test code=CO2) 27.0 mmol/L 21-32 ANION GAP (test code=GAP) 13.9 10-20 GLUCOSE (test code=GLU) 92 mg/dL 74-106 BLOOD UREA NITROGEN (test code=BUN) 17 mg/dL 7-18 GLOMERULAR FILTRATION RATE (test code=GFR) > 60 mL/min >=60 Estimated GFR by using Modified MDRD formula.Chronic kidney disease is defined as either kidney damageor GFR <60 mL/min/1.73 m2 for >3 months. CREATININE (test code=CREAT) 1.00 mg/dL 0.55-1.02 Note change in reference range due to change in reagent. BUN/CREATININE RATIO (test code=BUN/CREA) 16.2 10-20 CALCIUM (test code=CA) 8.7 mg/dL 8.5-10.1 BASIC METABOLIC [id number] 07:51:00* Test Item Value Reference Range Comments SODIUM (test code=NA) 139 mmol/L 136-145 POTASSIUM (test code=K) 3.9 mmol/L 3.5-5.1 CHLORIDE (test code=CL) 102.0 mmol/L 98-107 CARBON DIOXIDE (test code=CO2) mmol/L 21-32 ANION GAP (test code=GAP) 10-20 GLUCOSE (test code=GLU) mg/dL 74-106 BLOOD UREA NITROGEN (test code=BUN) mg/dL 7-18 GLOMERULAR FILTRATION RATE (test code=GFR) mL/min >=60 CREATININE (test code=CREAT) mg/dL 0.55-1.02 BUN/CREATININE RATIO (test code=BUN/CREA) 10-20 CALCIUM (test code=CA) mg/dL 8.5-10.1 CBC W/AUTO [id number] 07:41:00* Test Item Value Reference Range Comments WHITE BLOOD CELL (test code=WBC) K/mm3 4.5-12.5 RED BLOOD CELL (test code=RBC) mill/mm3 3.7-5.2 HEMOGLOBIN (test code=HGB) 12.4 gram/dL 11.5-15.5 HEMATOCRIT (test code=HCT) 39.3 % 36.0-46.0 MEAN CELL VOLUME (test code=MCV) fL 80-98 MEAN CELL HGB (test code=MCH) picogram 27.0-33.0 MEAN CELL HGB CONCETRATION (test code=MCHC) gram/dL 33.0-36.0 RED CELL DISTRIBUTION WIDTH (test code=RDW) % 11.6-16.2 RED CELL DISTRIBUTION WIDTH SD (test code=RDW-SD) fL 37.0-51.0 PLATELET COUNT (test code=PLT) K/mm3 150-450 MEAN PLATELET VOLUME (test code=MPV) fL 6.7-11.0 NEUTROPHIL % (test code=NT%) % 39.0-69.0 IMMATURE GRANULOCYTE % (test code=IG%) % 0.0-5.0 LYMPHOCYTE % (test code=LY%) % 25.0-55.0 MONOCYTE % (test code=MO%) % 0.0-10.0 EOSINOPHIL % (test code=EO%) % 0.0-5.0 BASOPHIL % (test code=BA%) % 0.0-1.0 NEUTROPHIL # (test code=NT#) K/mm3 1.8-7.7 LYMPHOCYTE # (test code=LY#) K/mm3 1.0-5.0 MONOCYTE # (test code=MO#) K/mm3 0-0.8 EOSINOPHIL # (test code=EO#) K/mm3 0.0-0.5 BASOPHIL # (test code=BA#) K/mm3 0.0-0.2 CBC W/AUTO [id number] 07:41:00* Test Item Value Reference Range Comments WHITE BLOOD CELL (test code=WBC) 6.5 K/mm3 4.5-12.5 RED BLOOD CELL (test code=RBC) 4.54 mill/mm3 3.7-5.2 HEMOGLOBIN (test code=HGB) 12.4 gram/dL 11.5-15.5 HEMATOCRIT (test code=HCT) 39.3 % 36.0-46.0 MEAN CELL VOLUME (test code=MCV) 86.6 fL 80-98 MEAN CELL HGB (test code=MCH) 27.3 picogram 27.0-33.0 MEAN CELL HGB CONCETRATION (test code=MCHC) 31.6 gram/dL 33.0-36.0 RED CELL DISTRIBUTION WIDTH (test code=RDW) 14.8 % 11.6-16.2 RED CELL DISTRIBUTION WIDTH SD (test code=RDW-SD) 47.3 fL 37.0-51.0 PLATELET COUNT (test code=PLT) 201 K/mm3 150-450 MEAN PLATELET VOLUME (test code=MPV) 11.2 fL 6.7-11.0 NEUTROPHIL % (test code=NT%) 46.4 % 39.0-69.0 IMMATURE GRANULOCYTE % (test code=IG%) 0.3 % 0.0-5.0 LYMPHOCYTE % (test code=LY%) 42.7 % 25.0-55.0 MONOCYTE % (test code=MO%) 8.9 % 0.0-10.0 EOSINOPHIL % (test code=EO%) 1.2 % 0.0-5.0 BASOPHIL % (test code=BA%) 0.5 % 0.0-1.0 NUCLEATED RBC % (test code=NRBC%) 0.0 % 0-0 NEUTROPHIL # (test code=NT#) 3.03 K/mm3 1.8-7.7 IMMATURE GRANULOCYTE # (test code=IG#) 0.02 x10 3/uL 0-0.03 LYMPHOCYTE # (test code=LY#) 2.79 K/mm3 1.0-5.0 MONOCYTE # (test code=MO#) 0.58 K/mm3 0-0.8 EOSINOPHIL # (test code=EO#) 0.08 K/mm3 0.0-0.5 BASOPHIL # (test code=BA#) 0.03 K/mm3 0.0-0.2 NUCLEATED RBC # (test code=NRBC#) 0.00 K/mm3 0.0-0.1 MANUAL DIFF REQUIRED (test code=MDIFF) NO - CT ABD PELVIS [id number] 23:32:00 Name: GUILLERMO LOPEZ [facility] : 1975 Age/S: 43 / F Tomás Coelho Unit #: [id number] Loc: [place] [address] Phys: Grayson Blanton DO Acct: [id number] Dis Date: Status: REG ER PHONE #: [phone] Exam Date: 09/30/2018 2315 FAX #: [phone] Reason: RLQ pain EXAMS: CPT CODE: [id number] CT ABD PELVIS W/CONT [id number] EXAM: - CT ABD PELVIS W/CONT HISTORY: Abdominal pain. TECHNIQUE: Axial tomograms through the abdomen and pelvis were obtained after intravenous contrast. Coronal and sagittal reformatted images are provided. This exam was performed according to our departmental dose-optimization program, which includes automated exposure control, adjustment of the mA and/or kV according to patient size and/or use of iterative reconstruction technique. COMPARISON: 06/27/2016. FINDINGS: The visualized lung bases are clear. Status post cholecystectomy. The liver, spleen, pancreas, adrenal glands and kidneys demonstrate no significant abnormalities. There is a small subcentimeter cortical cyst in mid right kidney laterally. There is no hydronephrosis. The appendix has a normal appearance. The bowel is unremarkable. There is no adenopathy or free fluid. The osseous structures demonstrate degenerative change without focal lesion. IMPRESSION: No significant abnormalities demonstrated. at 2332 Reported and signed by: Maurice Pugh MD CC: Grayson Blanton DO Technologist:DANI ADAMS CTDI: DLP: Trnscb Date/Time: 09/30/2018 (233) [id number] Orig Print D/T: S: 09/30/2018 ([id number]) CTDI: DLP: PAGE 1 Signed Report HEPATIC FUNCTION [id number] 23:01:00* Test Item Value Reference Range Comments TOTAL PROTEIN (test code=PROT) 8.3 gram/dL 6.4-8.2 ALBUMIN (test code=ALB) 3.5 g/dL 3.4-5.0 GLOBULIN (test code=GLOB) 4.8 gram/dL 2.7-4.2 ALBUMIN/GLOBULIN RATIO (test code=A/G) 0.7 0.75-1.50 BILIRUBIN TOTAL (test code=BILT) 0.30 mg/dL 0.0-1.0 BILIRUBIN DIRECT (test code=BILD) 0.06 mg/dL 0.0-0.20 SGOT/AST (test code=AST) 17 IUnit/L 15-37 SGPT/ALT (test code=ALT) 26 IUnit/L 12-78 ALKALINE PHOSPHATASE TOTAL (test code=ALKP) 90 IUnit/L 45-117 Note change in reference range due to change in reagent. [id number] 23:01:00* Test Item Value Reference Range Comments LIPASE (test code=LIP) 348 U/L 73.0-393.0 BASIC METABOLIC [id number] 22:57:00* Test Item Value Reference Range Comments SODIUM (test code=NA) 139 mmol/L 136-145 POTASSIUM (test code=K) 3.7 mmol/L 3.5-5.1 CHLORIDE (test code=CL) 101.0 mmol/L 98-107 CARBON DIOXIDE (test code=CO2) 31.0 mmol/L 21-32 ANION GAP (test code=GAP) 10.7 10-20 GLUCOSE (test code=GLU) 100 mg/dL 74-106 BLOOD UREA NITROGEN (test code=BUN) 16 mg/dL 7-18 GLOMERULAR FILTRATION RATE (test code=GFR) 59 mL/min >=60 Estimated GFR by using Modified MDRD formula.Chronic kidney disease is defined as either kidney damageor GFR <60 mL/min/1.73 m2 for >3 months. CREATININE (test code=CREAT) 1.20 mg/dL 0.55-1.02 Note change in reference range due to change in reagent. BUN/CREATININE RATIO (test code=BUN/CREA) 13.6 10-20 CALCIUM (test code=CA) 9.5 mg/dL 8.5-10.1 HCG SERUM [id number] 22:57:00* Test Item Value Reference Range Comments HCG SERUM QUAL (test code=HCGQL) NEGATIVE NEGATIVE This HCGQL test is NOT applicable for MALE patients.Check with nurse about probable order error.If Tumor Marker Test needed, nurse should order test "HCGTU"(Test #550.90998) [id number] 22:57:00* Test Item Value Reference Range Comments TROPONIN-I (test code=TROPI) 0.016 ng/mL 0-0.045 BASIC METABOLIC [id number] 22:52:00* Test Item Value Reference Range Comments SODIUM (test code=NA) 139 mmol/L 136-145 POTASSIUM (test code=K) 3.7 mmol/L 3.5-5.1 CHLORIDE (test code=CL) 101.0 mmol/L 98-107 CARBON DIOXIDE (test code=CO2) mmol/L 21-32 ANION GAP (test code=GAP) 10-20 GLUCOSE (test code=GLU) mg/dL 74-106 BLOOD UREA NITROGEN (test code=BUN) mg/dL 7-18 GLOMERULAR FILTRATION RATE (test code=GFR) mL/min >=60 CREATININE (test code=CREAT) mg/dL 0.55-1.02 BUN/CREATININE RATIO (test code=BUN/CREA) 10-20 CALCIUM (test code=CA) mg/dL 8.5-10.1 HCG SERUM [id number] 22:52:00* Test Item Value Reference Range Comments HCG SERUM QUAL (test code=HCGQL) NEGATIVE NEGATIVE This HCGQL test is NOT applicable for MALE patients.Check with nurse about probable order error.If Tumor Marker Test needed, nurse should order test "HCGTU"(Test #550.72589) [id number] 22:52:00* Test Item Value Reference Range Comments TROPONIN-I (test code=TROPI) ng/mL 0-0.045 BASIC METABOLIC [id number] 22:45:00* Test Item Value Reference Range Comments SODIUM (test code=NA) mmol/L 136-145 POTASSIUM (test code=K) mmol/L 3.5-5.1 CHLORIDE (test code=CL) mmol/L 98-107 CARBON DIOXIDE (test code=CO2) mmol/L 21-32 ANION GAP (test code=GAP) 10-20 GLUCOSE (test code=GLU) mg/dL 74-106 BLOOD UREA NITROGEN (test code=BUN) mg/dL 7-18 GLOMERULAR FILTRATION RATE (test code=GFR) mL/min >=60 CREATININE (test code=CREAT) mg/dL 0.55-1.02 BUN/CREATININE RATIO (test code=BUN/CREA) 10-20 CALCIUM (test code=CA) mg/dL 8.5-10.1 HCG SERUM [id number] 22:45:00* Test Item Value Reference Range Comments HCG SERUM QUAL (test code=HCGQL) NEGATIVE NEGATIVE This HCGQL test is NOT applicable for MALE patients.Check with nurse about probable order error.If Tumor Marker Test needed, nurse should order test "HCGTU"(Test #550.59665) [id number] 22:45:00* Test Item Value Reference Range Comments TROPONIN-I (test code=TROPI) ng/mL 0-0.045 CBC W/O [id number] 22:14:00* Test Item Value Reference Range Comments WHITE BLOOD CELL (test code=WBC) 7.7 K/mm3 4.5-12.5 RED BLOOD CELL (test code=RBC) 4.59 mill/mm3 3.7-5.2 HEMOGLOBIN (test code=HGB) 12.6 gram/dL 11.5-15.5 HEMATOCRIT (test code=HCT) 39.7 % 36.0-46.0 MEAN CELL VOLUME (test code=MCV) 86.5 fL 80-98 MEAN CELL HGB (test code=MCH) 27.5 picogram 27.0-33.0 MEAN CELL HGB CONCETRATION (test code=MCHC) 31.7 gram/dL 33.0-36.0 RED CELL DISTRIBUTION WIDTH (test code=RDW) 14.6 % 11.6-16.2 PLATELET COUNT (test code=PLT) 226 K/mm3 150-450 MEAN PLATELET VOLUME (test code=MPV) 11.3 fL 6.7-11.0 CBC W/O [id number] 22:12:00* Test Item Value Reference Range Comments WHITE BLOOD CELL (test code=WBC) K/mm3 4.5-12.5 RED BLOOD CELL (test code=RBC) mill/mm3 3.7-5.2 HEMOGLOBIN (test code=HGB) 12.6 gram/dL 11.5-15.5 HEMATOCRIT (test code=HCT) 39.7 % 36.0-46.0 MEAN CELL VOLUME (test code=MCV) fL 80-98 MEAN CELL HGB (test code=MCH) picogram 27.0-33.0 MEAN CELL HGB CONCETRATION (test code=MCHC) gram/dL 33.0-36.0 RED CELL DISTRIBUTION WIDTH (test code=RDW) % 11.6-16.2 PLATELET COUNT (test code=PLT) K/mm3 150-450 MEAN PLATELET VOLUME (test code=MPV) fL 6.7-11.0 TROPONIN I [id number] 21:46:00* Test Item Value Reference Range Comments TROPONIN I RAPID (test code=TROPIRAP) 0.01 ng/mL <0.08 Please Note New Reference Range 0.00-0.079 ng/mL - Negative>or=0.08 ng/mL - Positive The use of serial sampling and testing protocol is arecommended practice.An elevated troponin level alone is often not sufficient fordiagnosis of myocardial infarction. Troponin results obtained by different assays may vary.Evaluation of the extent of myocardial damage based onincrease of troponin would be valid only if similarmethodology is used. - XR CHEST 1 [id number] 21:02:00 FAX: Grayson Blanton DO [place]: B St: PRE Name: GUILLERMO MAYES [facility] : [birth year] 74 Age/S: 43/F Tomás Coelho Unit #: [id number] Loc: T[place] John [address] Phys: Grayson Blanton DO Acct: [id number] Dis Date: Status: PRE ER PHONE #: [phone] Exam Date: 09/30/2018 2100 FAX #: [phone] Reason: CHEST PAIN EXAMS: CPT CODE: [id number] XR CHEST 1 V [id number] REASON FOR EXAM: CHEST PAIN EXAM ORDER DATE: 09/30/2018 8:44 PM Ordering MRuth: Grayson Blanton DO PROCEDURE: - XR CHEST 1 V COMPARISON: FINDINGS: Portable AP frontal view of the chest obtained at 8:55 PM shows clear lungs without evidence of consolidation. There is no evidence of effusion. The heart size is within normal limits. Pulmonary vasculatures are unremarkable. IMPRESSION: No active disease. at 210 Reported and signed by: Jay Adams M.D. CC: Grayson Blanton DO Technologist: RT Luana(R Trnscrd Date/Time/By: 09/30/2018 ( 2101) : By: Rick Orig Print D/T: S: 09/30/2018 (2104) PAGE 1 Signed Report LIVER [id number] 02:36:00* Test Item Value Reference Range Comments BILI TOTAL (test code=11A) 0.4 mg/dL 0.2-1.0 BILI DIRCT (test code=12A) <0.1 mg/dL 0.0-0.2 BILI INDIR (test code=BILII) 0.0 mg/dL <=0.8 PROTEIN (test code=07D) 7.7 g/dL 6.4-8.2 ALBUMIN (test code=08D) 3.7 g/dL 3.5-4.8 GLOBULIN (test code=GLB) 4.0 g/dL 1.5-3.8 ALB/GLOB (test code=AGRR) 0.9 1.0-2.6 ALK PHOS (test code=35A) 81 IU/L 42-121 AST (test code=30A) 18 IU/L <=42 ALT (test code=31A) 26 IU/L <=78 AMYLASE AND [id number] 02:23:00* Test Item Value Reference Range Comments AMYLASE (test code=10A) 90 U/L 28-100 LIPASE (test code=60A) 283 IU/L 73-393 BRAIN NATRIURETIC [id number] 02:22:00* Test Item Value Reference Range Comments proBNP (test code=PBNP) 34 pg/mL 0-125 CARDIAC [id number] 02:20:00* Test Item Value Reference Range Comments TROPONIN I (test code=A84) <0.015 ng/mL 0.000-0.045 CKMB (test code=A49) <1.0 ng/mL <=3.6 CPK (test code=32A) 348 IU/L 26-192 [id number] 02:17:00* Test Item Value Reference Range Comments D-DIMER (test code=DDI) <200 ng/mL D-DU 0-234 D-DIMER COMMENT (test code=DDCOM) *Level to rule out DVT or PE: <235 ng/mL D-DU* PRO TIME AND [id number] 02:17:00* Test Item Value Reference Range Comments PT (test code=TT) 11.8 s 9.8-13.6 INR (test code=INR) 1.1 INRH (test code=INRH) SUGGESTED THERAPEUTIC RANGE FOR INR: 2.5 - 3.5 For Patients with Prosthetic Valves or Patients with recurrent Thromboembolic Events 2.0 - 3.0 For Most Other Applications PTT (test code=PTT) 27.9 s 20.2-38.0 PTTH (test code=PTTH) To monitor the effectiveness of heparin, we offer the Anti-Xa (Heparin Assay). It can be used for either unfractionated or LMW Heparin. Order Code is ANTI-XA BASIC METABOLIC [id number] 02:16:00* Test Item Value Reference Range Comments GLUCOSE (test code=06D) 106 mg/dL 75-100 SODIUM (test code=01A) 138 mmol/L 136-145 POTASSIUM (test code=01B) 3.8 mmol/L 3.6-5.1 CHLORIDE (test code=04A) 100 mmol/L 98-107 CO2 (test code=02A) 27 mmol/L 22-32 ANION GAP (test code=ANG) 14.8 mmol/L BUN (test code=05D) 17 mg/dL 7-18 CREATININE (test code=03E) 1.2 mg/dL 0.4-1.1 BUN/CREA (test code=BCR) 14 12-20 CALCIUM (test code=09D) 9.1 mg/dL 8.3-9.5 [id number] 02:13:00* Test Item Value Reference Range Comments MAGNESIUM (test code=48A) 1.6 mg/dL 1.8-2.4 CBC (INCLUDES AUTOMATED DIFFERENTIAL)2017-10-23 02:09:00* Test Item Value Reference Range Comments WBC (test code=WBC) 4.8 10\\S\\3/uL 4.5-11.0 RBC (test code=RBC) 4.38 10\\S\\6/uL 4.30-5.70 HGB (test code=HBG) 11.9 g/dL 12.0-15.5 HCT (test code=HCT) 36.9 % 35.0-44.0 MCV (test code=MCV) 84.2 fL 81.0-99.0 MCH (test code=MCH) 27.2 pg 27.0-31.0 MCHC (test code=MCHC) 32.2 g/dL 32.0-36.0 RDW (test code=RDW) 14.6 % 11.5-14.5 PLT (test code=PLT) 212 10\\S\\3/uL 130-400 MPV (test code=MPV) 11.5 fL 9.4-12.4 NEUTROP # (test code=NE#) 2.0 10\\S\\3/uL 1.6-8.0 LYMPH # (test code=LY#) 2.0 10\\S\\3/uL 1.1-3.5 MONOCYTE # (test code=MO#) 0.8 10\\S\\3/uL 0.0-1.1 EOSINOPH # (test code=EO#) 0.1 10\\S\\3/uL 0.0-0.7 BASOPHIL # (test code=BA#) 0.0 10\\S\\3/uL 0.0-0.3 IG # (test code=IG#) 0.01 10\\S\\3/uL 0.00-0.06 NRBC # (test code=NRBC#) 0.00 10\\S\\3/uL 0.00-0.01 NEUTROPH % (test code=NE%) 40.6 % 35.0-73.0 LYMPH % (test code=LY%) 41.0 % 20.0-55.0 MONO % (test code=MO%) 15.9 % 2.5-10.0 EOSINOPH % (test code=EO%) 1.7 % 0.0-5.0 BASOPHIL % (test code=BA%) 0.6 % 0.0-2.0 IG % (test code=IG%) 0.2 % 0.0-0.8 NRBC% (test code=NRBC%) 0.0 % 0.0-0.2 MANDIFF (test code=MDIFF) NO NO RBC MORPH (test code=RBCMOR) NORMAL XR CHEST 1 VIEW [id number] 00:43:29EXAM: XR CHEST 1 VIEW PORTABLEHISTORY: [id number]: Chest painR05: COUGH TECHNIQUE: Frontal view of the chest.COMPARISON: 10/12/2017FINDINGS:The lungs are well inflated and clear. No evidence of pneumothorax or pleural effusion. The heart is normal in size. The mediastinal contours are unremarkable. Osseous structures are intact. IMPRESSION:No evidence of acute cardiopulmonary disease.CARDIAC PROFILE 2017-10-13 10:50:00* Test Item Value Reference Range Comments TROPONIN I (test code=A84) <0.015 ng/mL 0.000-0.045 CKMB (test code=A49) <1.0 ng/mL <=3.6 CPK (test code=32A) 249 IU/L 26-192 CARDIAC [id number] 05:28:00* Test Item Value Reference Range Comments TROPONIN I (test code=A84) <0.015 ng/mL 0.000-0.045 CKMB (test code=A49) <1.0 ng/mL <=3.6 CPK (test code=32A) 295 IU/L 26-192 CT ABDOMEN AND PELVIS WITH [id number] 23:57:25AFTER HOURS SERVICE ON: 10/12/2017 11:56 PMCT Scan of the Abdomen and Pelvis With ContrastLocation Code K37Oairmra: R10.31: RIGHT LOWER QUADRANT PAINTechnique: Axial and reconstructed coronal scans were performed on a helicalscanner post IV contrast. Delayed scans were also obtained. One or more of the following dose reduction techniques were used: Automatedexposure control, adjustment of the mA and/or kV according to patient size,and/or utilization of iterative reconstruction technique.Findings: Liver: No significant findings. Gallbladder/Biliary: Gal lbladder is surgically absent.Pancreas: No significant findings. Spleen: No sig nificant findings.Adrenals: No significant findings. Kidneys: There is no hydron ephrosis or pyelonephritis either kidney. There are2 hypodense lesion in the low er pole cortex of the right kidney which are toosmall to adequately characterize measuring up to 7 mm.Bladder: No significant findings. Bowel: No significant fi ndings. The appendix is unremarkable.Other: Uterus is absent. There is no pelvic free fluid or adnexal mass.Impression:No acute findings in the abdomen or pelvi s. [id number] 23:23:00* Test Item Value Reference Range Comments D-DIMER (test code=DDI) 211 ng/mL D-DU 0-234 D-DIMER COMMENT (test code=DDCOM) *Level to rule out DVT or PE: <235 ng/mL D-DU* URINALYSIS WITH [id number] 23:08:00* Test Item Value Reference Range Comments COLOR (test code=COLU) YELLOW YELLOW CLARITY (test code=CLA) CLEAR CLEAR GLUCOSE UR (test code=UA GLUCOSE) NEGATIVE NEGATIVE BILI UR (test code=BILE) NEGATIVE NEGATIVE KETONES UR (test code=QUINN) NEGATIVE NEGATIVE SP GRAVITY (test code=SPGR) 1.020 1.005-1.030 PH UR (test code=PH) 6.5 4.5-8.0 PROTEIN UR (test code=PU) 2+ NEGATIVE UROBIL UR (test code=UROQ) 1.0 EU/dL 0.2-1.0 NITRITE UR (test code=NITRITE) NEGATIVE NEGATIVE BLOOD UR (test code=UA BLOOD) NEGATIVE NEGATIVE LEUK ES UR (test code=LEUK) NEGATIVE NEGATIVE WBC UR (test code=UWBC) 0 /HPF 0-5 RBC UR (test code=URBC) 1 /HPF 0-2 EPITH UR (test code=UEPC) FEW /LPF FEW BACTERIA UR (test code=UBACT) FEW /HPF NONE CAST UR (test code=CAST) /LPF NONE CRYSTAL UR (test code=CRYU) / LPF NONE MUCUS UR (test code=MUC) / HPF NONE AMORPH UR (test code=STARR) / HPF NONE TRICH UR (test code=UTRICH) /HPF NONE YEAST UR (test code=UY) /HPF NONE SPERM UR (test code=USPERM) /HPF NONE AMYLASE AND [id number] 23:01:00* Test Item Value Reference Range Comments AMYLASE (test code=10A) 75 U/L 28-100 LIPASE (test code=60A) 286 IU/L 73-393 COMPREHENSIVE METABOLIC [id number] 23:01:00* Test Item Value Reference Range Comments GLUCOSE (test code=06D) 113 mg/dL 75-100 SODIUM (test code=01A) 140 mmol/L 136-145 POTASSIUM (test code=01B) 3.8 mmol/L 3.6-5.1 CHLORIDE (test code=04A) 103 mmol/L 98-107 CO2 (test code=02A) 29 mmol/L 22-32 ANION GAP (test code=ANG) 11.8 mmol/L BUN (test code=05D) 15 mg/dL 7-18 CREATININE (test code=03E) 1.2 mg/dL 0.4-1.1 BUN/CREA (test code=BCR) 13 12-20 CALCIUM (test code=09D) 9.1 mg/dL 8.3-9.5 BILI TOTAL (test code=11A) 0.3 mg/dL 0.2-1.0 PROTEIN (test code=07D) 8.3 g/dL 6.4-8.2 ALBUMIN (test code=08D) 3.7 g/dL 3.5-4.8 GLOBULIN (test code=GLB) 4.6 g/dL 1.5-3.8 ALB/GLOB (test code=AGRR) 0.8 1.0-2.6 ALK PHOS (test code=35A) 87 IU/L 42-121 AST (test code=30A) 20 IU/L <=42 ALT (test code=31A) 29 IU/L <=78 DRUGS OF [id number] 23:00:00* Test Item Value Reference Range Comments DRUG SCRN (test code=HDOA) URINE DRUG SCREEN This is an unconfirmed screening result and should not be used for non-medical purposes CANNABINOD (test code=88C) Negative NEGATIVE AMPHETAMINE (test code=84A) Negative NEGATIVE BENZODIAZP (test code=86A) Negative NEGATIVE BARBITURAT (test code=85A) Negative NEGATIVE OPIATES (test code=92B) Negative NEGATIVE COCAINE (test code=87A) Negative NEGATIVE PHENCYCLID (test code=66A) Negative NEGATIVE METHADONE (test code=64A) Negative NEGATIVE DOAH (test code=DOAH) URINE DRUG SCREEN Cut-off values are as follows: Cannabinoids 50 ng/mL Cocaine 300 ng/mL Amphetamines 1000 ng/mL Phencyclidine 25 ng/mL Benzodiazepines 200 ng.mL Methadone 300 ng/mL Barbiturates 200 ng/mL Opiates 2000 ng/mL CARDIAC [id number] 22:58:00* Test Item Value Reference Range Comments TROPONIN I (test code=A84) <0.015 ng/mL 0.000-0.045 CKMB (test code=A49) <1.0 ng/mL <=3.6 CPK (test code=32A) 386 IU/L 26-192 PRO TIME AND [id number] 22:55:00* Test Item Value Reference Range Comments PT (test code=TT) 11.0 s 9.8-13.6 INR (test code=INR) 1.0 INRH (test code=INRH) SUGGESTED THERAPEUTIC RANGE FOR INR: 2.5 - 3.5 For Patients with Prosthetic Valves or Patients with recurrent Thromboembolic Events 2.0 - 3.0 For Most Other Applications PTT (test code=PTT) 26.7 s 20.2-38.0 PTTH (test code=PTTH) To monitor the effectiveness of heparin, we offer the Anti-Xa (Heparin Assay). It can be used for either unfractionated or LMW Heparin. Order Code is ANTI-XA XR CHEST 2 [id number] 22:52:40XR CHEST 2 VIEWLocation:[facility] hours services provided 10/12/2017 10:52 PMIndication:[id number]: Chest painComparison:01/07/14Findings:The lungs are equally and symmetrically inflated. The trachea ismidline. The cardiac silhouette is normal in size. No acute bony abnormality.Impression:No acute cardiopulmonary disease. SERUM [id number] 22:49:00* Test Item Value Reference Range Comments PREG SRM (test code=PGS) NEGATIVE NEGATIVE CBC (INCLUDES AUTOMATED DIFFERENTIAL)2017-10-12 22:44:00* Test Item Value Reference Range Comments WBC (test code=WBC) 5.8 10\\S\\3/uL 4.5-11.0 RBC (test code=RBC) 4.47 10\\S\\6/uL 4.30-5.70 HGB (test code=HBG) 12.2 g/dL 12.0-15.5 HCT (test code=HCT) 37.6 % 35.0-44.0 MCV (test code=MCV) 84.1 fL 81.0-99.0 MCH (test code=MCH) 27.3 pg 27.0-31.0 MCHC (test code=MCHC) 32.4 g/dL 32.0-36.0 RDW (test code=RDW) 15.2 % 11.5-14.5 PLT (test code=PLT) 212 10\\S\\3/uL 130-400 MPV (test code=MPV) 10.8 fL 9.4-12.4 NEUTROP # (test code=NE#) 2.3 10\\S\\3/uL 1.6-8.0 LYMPH # (test code=LY#) 2.8 10\\S\\3/uL 1.1-3.5 MONOCYTE # (test code=MO#) 0.5 10\\S\\3/uL 0.0-1.1 EOSINOPH # (test code=EO#) 0.1 10\\S\\3/uL 0.0-0.7 BASOPHIL # (test code=BA#) 0.0 10\\S\\3/uL 0.0-0.3 IG # (test code=IG#) 0.01 10\\S\\3/uL 0.00-0.06 NRBC # (test code=NRBC#) 0.00 10\\S\\3/uL 0.00-0.01 NEUTROPH % (test code=NE%) 39.8 % 35.0-73.0 LYMPH % (test code=LY%) 48.8 % 20.0-55.0 MONO % (test code=MO%) 9.3 % 2.5-10.0 EOSINOPH % (test code=EO%) 1.4 % 0.0-5.0 BASOPHIL % (test code=BA%) 0.5 % 0.0-2.0 IG % (test code=IG%) 0.2 % 0.0-0.8 NRBC% (test code=NRBC%) 0.0 % 0.0-0.2 MANDIFF (test code=MDIFF) NO NO RBC MORPH (test code=RBCMOR) NORMAL [id number] 20:32:00* Test Item Value Reference Range Comments LIPASE (BEAKER) (test evht=437) 58 U/L 6-51 HEPATIC FUNCTION [id number] 20:31:00* Test Item Value Reference Range Comments TOTAL PROTEIN (BEAKER) (test nmmi=560) 8.3 gm/dL 6.0-8.5 Specimen moderately hemolyzed ALBUMIN (BEAKER) (test ydiy=1652) 4.0 g/dL 3.5-5.0 Specimen moderately hemolyzed BILIRUBIN TOTAL (BEAKER) (test znbr=276) 0.4 mg/dL 0.1-1.2 Specimen moderately hemolyzed BILIRUBIN DIRECT (BEAKER) (test amin=116) 0.1 mg/dL 0.0-0.4 Specimen moderately hemolyzed ALKALINE PHOSPHATASE (BEAKER) (test eluv=284) 74 U/L 30-115 AST (SGOT) (BEAKER) (test qxki=054) 27 U/L 5-40 Specimen moderately hemolyzed ALT (SGPT) (BEAKER) (test eykv=085) 26 U/L 5-50 Specimen moderately hemolyzed BASIC METABOLIC [id number] 20:29:00* Test Item Value Reference Range Comments SODIUM (BEAKER) (test gfoo=537) 139 meq/L 135-148 POTASSIUM (BEAKER) (test rsac=791) 5.2 meq/L 3.6-5.5 Specimen moderately hemolyzed CHLORIDE (BEAKER) (test blft=618) 104 meq/L 98-106 CO2 (BEAKER) (test nrbb=567) 25 meq/L 20-29 BLOOD UREA NITROGEN (BEAKER) (test ksfu=833) 17 mg/dL 10-26 CREATININE (BEAKER) (test vauo=505) 1.10 mg/dL 0.50-1.20 Specimen moderately hemolyzed GLUCOSE RANDOM (BEAKER) (test unde=895) 102 mg/dL 70-110 CALCIUM (BEAKER) (test zqtm=137) 9.6 mg/dL 8.5-10.5 EGFR (BEAKER) (test mixb=7013) 66 mL/min/1.73 sq m ESTIMATED GFR IS NOT ACCURATE CREATININE CLEARANCE IN PREDICTING GLOMERULAR FILTRATION RATE. ESTIMATED GFR IS NOT APPLICABLE FOR DIALYSIS PATIENTS. URINALYSIS W/ REFLEX URINE [id number] 20:25:00* Test Item Value Reference Range Comments COLOR (BEAKER) (test wmbf=686) Yellow CLARITY (BEAKER) (test kcyz=000) Clear SPECIFIC GRAVITY UA (BEAKER) (test eans=926) 1.020 1.001-1.035 PH UA (BEAKER) (test absd=563) 6.5 5.0-8.0 PROTEIN UA (BEAKER) (test ealm=756) 30 mg/dL Negative GLUCOSE UA (BEAKER) (test zkmk=667) Negative Negative KETONES UA (BEAKER) (test vdla=907) Negative Negative BILIRUBIN UA (BEAKER) (test oopu=784) Negative Negative BLOOD UA (BEAKER) (test pnsw=640) Trace Negative NITRITE UA (BEAKER) (test ikfd=162) Negative Negative LEUKOCYTE ESTERASE UA (BEAKER) (test yrxe=124) Negative Negative UROBILINOGEN UA (BEAKER) (test mkvk=605) 0.2 mg/dL 0.2-1.0 BACTERIA (BEAKER) (test fmry=171) Few RBC UA-MANUAL (BEAKER) (test wqzk=2012) <5 /HPF WBC UA-MANUAL (BEAKER) (test ocdd=6287) <5 /HPF SQUAMOUS EPITHELIAL MANUAL (BEAKER) (test vpzf=2693) <5 /HPF SOURCE(BEAKER) (test ftmd=4536) CBC W/PLT COUNT & AUTO [id number] 20:08:00* Test Item Value Reference Range Comments WHITE BLOOD CELL COUNT (BEAKER) (test czoy=740) 6.7 K/ L 4.0-10.0 RED BLOOD CELL COUNT (BEAKER) (test afeb=918) 4.44 M/ L 4.00-5.00 HEMOGLOBIN (BEAKER) (test ltdy=205) 12.3 GM/DL 12.0-15.0 HEMATOCRIT (BEAKER) (test nttu=070) 37.3 % 36.0-45.0 MEAN CORPUSCULAR VOLUME (BEAKER) (test sgjx=913) 84.0 fL 82.0-99.0 MEAN CORPUSCULAR HEMOGLOBIN (BEAKER) (test jauj=819) 27.7 pg 27.0-33.0 MEAN CORPUSCULAR HEMOGLOBIN CONC (BEAKER) (test rmzh=371) 32.9 GM/DL 32.0-36.0 RED CELL DISTRIBUTION WIDTH (BEAKER) (test hxvq=395) 15.3 % 10.3-14.2 PLATELET COUNT (BEAKER) (test pged=992) 220 K/CU MM 150-430 MEAN PLATELET VOLUME (BEAKER) (test cgxm=026) 9.3 fL 6.5-10.5 NUCLEATED RED BLOOD CELLS (BEAKER) (test nhxo=362) 0 /100 WBC 0-0 NEUTROPHILS RELATIVE PERCENT (BEAKER) (test idwr=940) 50 % LYMPHOCYTES RELATIVE PERCENT (BEAKER) (test jfoi=399) 42 % MONOCYTES RELATIVE PERCENT (BEAKER) (test zkqx=500) 6 % EOSINOPHILS RELATIVE PERCENT (BEAKER) (test ktjs=542) 1 % BASOPHILS RELATIVE PERCENT (BEAKER) (test zlep=936) 1 % NEUTROPHILS ABSOLUTE COUNT (BEAKER) (test udaz=606) 3.40 K/ L 1.80-8.00 LYMPHOCYTES ABSOLUTE COUNT (BEAKER) (test yrjb=268) 2.80 K/ L 1.48-4.50 MONOCYTES ABSOLUTE COUNT (BEAKER) (test gvya=956) 0.40 K/ L 0.00-1.30 EOSINOPHILS ABSOLUTE COUNT (BEAKER) (test bqir=724) 0.10 K/ L 0.00-0.50 BASOPHILS ABSOLUTE COUNT (BEAKER) (test hlds=889) 0.10 K/ L 0.00-0.20 BLOOD [id number] 04:00:00* Test Item Value Reference Range Comments CULTURE (BEAKER) (test xlzx=2302) No growth in 5 days BLOOD [id number] 04:00:00* Test Item Value Reference Range Comments CULTURE (BEAKER) (test gojb=7402) No growth in [address], [id number] 22:40:00Reason for exam:->R sided abd pain, feverIs the patient ?->NoWhat is the patient's sedation requirement?->No Sedation FINAL REPORT Exam: CT of the abdomen and pelvis, with co ntrast CLINICAL HISTORY: Right abdominal pain and fever. TECHNIQUE: CT of the a bdomen and pelvis was performed with intravenous contrast administration. This exam was performed according to our departmental dose optimization program which includes automated exposure control, adjustment of the mA and/or kV according to patient's size and/or use of iterative reconstructive technique. COMPARISON: CT abdomen and pelvis 05/25/2016. FINDINGS: LOWER CHEST: Within normal limits. L IVER: Within normal limits.BILE DUCTS: Within normal limits.GALL BLADDER: Status post cholecystectomy.PANCREAS: Within normal limits.SPLEEN: Within normal limit s.ADRENALS: Within normal limits.KIDNEYS/URETERS: Few subcentimeter hypodensitie s in the right kidney too small to characterize. Unremarkable left kidney. No pe rinephric stranding, hydronephrosis or radiopaque stones. URINARY BLADDER: Colla psed which limits its evaluation.REPRODUCTIVE ORGANS: Status post hysterectomy. No adnexal masses. BOWEL/MESENTERY: No bowel obstruction. Normal appendix.PERITO NEUM/RETROPERITONEUM: No free air, free fluid or fluid collections. VESSELS: Wit hin normal limits. LYMPH NODES: No abdominal or pelvic lymphadenopathy.SOFT TISS UES: Mild diastases of the rectus abdominis muscle. Small fat-containing umbilic al hernia.BONES: Mild degenerative changes of the visualized spine and bilateral hips. IMPRESSION: Normal appendix. No bowel obstruction, free air or fluid co llection.Status post cholecystectomy.Status post hysterectomy. Signed: Darren Stubbseport Verified Date/Time: 08/12/2017 22:40:00 Reading Location: [address] Transitional Reading Room D INFLUENZA A&B [id number] 22:35:00* Test Item Value Reference Range Comments RAPID INFLUENZA A AG (BEAKER) (test ogco=1524) Negative Negative, Inconclusive RAPID INFLUENZA B AG (BEAKER) (test liob=6570) Negative Negative, Inconclusive URINALYSIS W/ [id number] 22:20:00* Test Item Value Reference Range Comments COLOR (BEAKER) (test dtjc=215) Yellow CLARITY (BEAKER) (test ktfb=243) Slightly Cloudy SPECIFIC GRAVITY UA (BEAKER) (test qnjl=363) 1.020 1.001-1.035 PH UA (BEAKER) (test wlma=834) 6.5 5.0-8.0 PROTEIN UA (BEAKER) (test amwj=561) 30 mg/dL Negative GLUCOSE UA (BEAKER) (test qxjz=712) Negative Negative KETONES UA (BEAKER) (test iojr=747) Negative Negative BILIRUBIN UA (BEAKER) (test ovnq=798) Negative Negative BLOOD UA (BEAKER) (test rimo=533) Negative Negative NITRITE UA (BEAKER) (test ozgf=210) Negative Negative LEUKOCYTE ESTERASE UA (BEAKER) (test geeo=093) Negative Negative UROBILINOGEN UA (BEAKER) (test euun=730) 1.0 mg/dL 0.2-1.0 BACTERIA (BEAKER) (test dhqy=148) Occasional RBC UA-MANUAL (BEAKER) (test jfdx=8244) <5 /HPF WBC UA-MANUAL (BEAKER) (test xjug=7707) <5 /HPF SQUAMOUS EPITHELIAL MANUAL (BEAKER) (test edky=2507) <5 /HPF SOURCE(BEAKER) (test fnuz=0607) [id number] 22:05:00* Test Item Value Reference Range Comments LIPASE (BEAKER) (test jyfe=219) 44 U/L 6-51 HEPATIC FUNCTION [id number] 22:04:00* Test Item Value Reference Range Comments TOTAL PROTEIN (BEAKER) (test xkfr=934) 8.4 gm/dL 6.0-8.5 ALBUMIN (BEAKER) (test rmnk=4325) 4.3 g/dL 3.5-5.0 BILIRUBIN TOTAL (BEAKER) (test cgyu=789) 0.6 mg/dL 0.1-1.2 BILIRUBIN DIRECT (BEAKER) (test hyei=198) 0.2 mg/dL 0.0-0.4 ALKALINE PHOSPHATASE (BEAKER) (test shut=875) 82 U/L 30-115 AST (SGOT) (BEAKER) (test wuvz=686) 17 U/L 5-40 ALT (SGPT) (BEAKER) (test cvid=096) 22 U/L 5-50 LACTIC ACID, VENOUS, WHOLE [id number] 21:58:00* Test Item Value Reference Range Comments LACTATE BLOOD VENOUS (2) (BEAKER) (test vyss=7186) 1.1 mmol/L 0.5-2.2 Effective 11/30/2015: Units/Reference Range ChangeNew: 0.5-2.2 mmol/L Previous: 5 -18 mg/dLCBC W/PLT COUNT & AUTO [id number] 21:43:00* Test Item Value Reference Range Comments WHITE BLOOD CELL COUNT (BEAKER) (test xyyq=587) 6.5 K/ L 4.0-10.0 RED BLOOD CELL COUNT (BEAKER) (test eidb=806) 4.69 M/ L 4.00-5.00 HEMOGLOBIN (BEAKER) (test lcly=337) 12.9 GM/DL 12.0-15.0 HEMATOCRIT (BEAKER) (test qtca=376) 39.5 % 36.0-45.0 MEAN CORPUSCULAR VOLUME (BEAKER) (test rzdv=522) 84.2 fL 82.0-99.0 MEAN CORPUSCULAR HEMOGLOBIN (BEAKER) (test wylk=689) 27.4 pg 27.0-33.0 MEAN CORPUSCULAR HEMOGLOBIN CONC (BEAKER) (test omcy=551) 32.5 GM/DL 32.0-36.0 RED CELL DISTRIBUTION WIDTH (BEAKER) (test bllx=472) 15.6 % 10.3-14.2 PLATELET COUNT (BEAKER) (test vdtb=495) 233 K/CU MM 150-430 MEAN PLATELET VOLUME (BEAKER) (test qmvf=477) 9.0 fL 6.5-10.5 (MANUAL DIFFERENTIAL)2017-08-12 21:43:00* Test Item Value Reference Range Comments NEUTROPHILS - REL (DIFF) (BEAKER) (test xtju=1328) 72 % LYMPHOCYTES - REL (DIFF) (BEAKER) (test rimn=4462) 20 % MONOCYTES - REL (DIFF) (BEAKER) (test mcle=8051) 8 % NEUTROPHILS - ABS (DIFF) (BEAKER) (test gsno=1910) 4.68 K/ L 1.80-8.00 LYMPHOCYTES - ABS (DIFF) (BEAKER) (test legy=4201) 1.30 K/ L 1.48-4.50 MONOCYTES - ABS (DIFF) (BEAKER) (test uvuk=2069) 0.52 K/ L 0.00-1.30 TOTAL COUNTED (BEAKER) (test unbx=4556) 100 WBC MORPHOLOGY (BEAKER) (test lmrs=025) Normal LARGE PLT(BEAKER) (test btsz=5191) Present ANISOCYTOSIS (BEAKER) (test pzon=674) 1+ few HYPOCHROMIA (BEAKER) (test npuv=959) 1+ few STOMATOCYTES (BEAKER) (test euqx=618) 1+ few B-TYPE NATRIURETIC FACTOR (BNP)2017-08-12 21:41:00* Test Item Value Reference Range Comments B-TYPE NATRIURETIC PEPTIDE (BEAKER) (test lior=962) 10 pg/mL 0-100 TROPONIN [id number] 21:40:00* Test Item Value Reference Range Comments TROPONIN I (BEAKER) (test bxtu=779) < ng/mL 0.00-0.15 Troponin I (TnI) levels must be interpreted in the context of the presenting sym ptoms and the clinical findings. Elevated TnI levels indicate myocardial damage, but are not specific for ischemic heart disease. Elevated TnI levels are seen in patients with other cardiac conditions (including myocarditis and congestive h eart failure), and slight TnI elevations occur in patients with other conditions , including sepsis, renal failure, acidosis, acute neurological disease, and per sistent tachyarrhythmia.CREATINE KINASE (CK), TOTAL AND [id number] 21:39:00* Test Item Value Reference Range Comments CREATINE KINASE TOTAL (BEAKER) (test pavs=583) 173 U/L 25-235 CREATINE KINASE-MB (BEAKER) (test xvat=060) 0.6 ng/mL 0.0-4.9 CREATINE KINASE-MB INDEX (BEAKER) (test xuql=229) 0.3 % CK-MB Reference Range:<5 Normal5-10 Borderline>10 AbnormalBASIC METABOLIC [id number] 21:32:00* Test Item Value Reference Range Comments SODIUM (BEAKER) (test iqmv=838) 140 meq/L 135-148 POTASSIUM (BEAKER) (test cyzk=962) 4.2 meq/L 3.6-5.5 CHLORIDE (BEAKER) (test oofb=181) 101 meq/L 98-106 CO2 (BEAKER) (test rxne=881) 28 meq/L 20-29 BLOOD UREA NITROGEN (BEAKER) (test ehlr=881) 16 mg/dL 10-26 CREATININE (BEAKER) (test ihqr=042) 1.10 mg/dL 0.50-1.20 GLUCOSE RANDOM (BEAKER) (test jtiv=602) 105 mg/dL 70-110 CALCIUM (BEAKER) (test vumd=420) 9.9 mg/dL 8.5-10.5 EGFR (BEAKER) (test ueap=4135) 66 mL/min/1.73 sq m ESTIMATED GFR IS NOT ACCURATE CREATININE CLEARANCE IN PREDICTING GLOMERULAR FILTRATION RATE. ESTIMATED GFR IS NOT APPLICABLE FOR DIALYSIS PATIENTS. PT/[id number] 21:26:00* Test Item Value Reference Range Comments PROTIME (BEAKER) (test dszr=000) 10.7 seconds 9.3-12.0 INR (BEAKER) (test ruwm=342) 1.0 <=5.9 PARTIAL THROMBOPLASTIN TIME (BEAKER) (test drph=676) 24.8 seconds 23.0-35.0 RECOMMENDED COUMADIN/WARFARIN INR THERAPY RANGESSTANDARD DOSE: 2.0 - 3.0 Inclu kulwant: PROPHYLAXIS for venous thrombosis, systemic embolization; TREATMENT for sylwia ous thrombosis and/or pulmonary embolus.HIGH RISK: Target INR is 2.5-3.5 for pat ients with mechanical heart valves.[id number] 21:26:00* Test Item Value Reference Range Comments MAGNESIUM (BEAKER) (test jpdx=100) 2.1 mg/dL 1.5-3.0 RAD, CHEST, 2 [id number] 19:43:00Reason for exam:->CHEST PAIN Reason for exam:->HEADACHE Is the patient ?->NoFINAL REPORT PA and Lateral views of the chest dated 08/12/2017 Clinical information: CHEST PAINHEADACHE Comment: Heart is normal in size. Pulmonary vasculature is unremarkable. Lungs are clear. No pulmonary infiltrate or pleural effusion is present. Impression: No active cardiopulmonary disease. Signed: Dani Ortiz [facility]ITAL[facility]ort Verified Date/Time: 08/12/2017 19:43:28 Reading Location: [address] Consult Reading Room , BRAIN, WITHOUT [id number] 19:27:00Reason for exam:->CHEST PAINReason for exam:->HEADACHEIs the patient ?->NoWhat is the patient's sedation requirement?->No SedationFINAL REPORT CT head without contrast 08/12/2017 7:26 PM CLINICAL HISTORY: Headache, acute, severe, thunderclap, worst [place] of lifeCHEST PAINHEADACHE TECHNIQUE: Axial noncontrast CT images through the head were obtained. This examination was performed according to our departmental dose optimization program, which includes automated exposure control, adjustment of the mA and/or kV according to patient size, and/or use of iterated reconstruction technique. COMPARISON: None available FINDINGS: There is no hemorrhage, extra-axial collection, mass, hydrocephalus, or midline shift. There is no CT evidence for cerebral infarction. The visualized paranasal sinuses and mastoid air cells are well aer ated. The skull is intact. IMPRESSION: No intracranial hemorrhage or mass effect . If concern for acute pathology persists, further evaluation with MRI is re commended. Signed: Leo Puentes MDReport Verified Date/Time: 08/12/2017 19:2 7:09 Reading Location: [facility] Radiology Reading Room Electronically si gned by: LEO PUENTES M.D. on 08/12/2017 07:27 PM
--- OUTSIDE RECORDS SUMMARY | 2018-10-12 09:54 | XMS REPORT | Clinical Summary ---
Author Author [facility] Organization [facility] Address Unknown Phone Unavailable Care Team Providers Care Chemical Detection Expert Name Role Phone PCP Unavailable Allergies Comments [...] (Primary Dx) 06/22/2018 Emergency Emergency Medicine after 09/14/2017 Immunizations Name Dates Previously Given Next Due [...] Taken Vital Sign Reading 06/22/2018 6:30 AM MARKETING AMBASSADOR Blood Pressure 174/103 06/22/2018 6:30 AM MARKETING AMBASSADOR Pulse 82 06/22/2018 6:30 AM MARKETING AMBASSADOR Temperature 36.8 C (98.3 F) 06/22/2018 6:30 AM MARKETING AMBASSADOR Respiratory Rate 18 06/22/2018 6:30 AM MARKETING AMBASSADOR Oxygen Saturation 97% - Inhaled Oxygen - Concentration - Weight - - Height - - Body Mass Index - Plan of Treatment Health Maintenance Due Date Last Done Comments Cervical Cancer Scrn (3 1995 Yrs) Breast Cancer Scrn 2014 (Yearly) IMM Influenza Seasonal 04/28/2018Apr to September (>/=19 yrs) Procedures Comments Procedure Name Priority Date/Time Associated Diagnosis UA CHEMISTRIES STAT 06/22/2018 4:30 AM MARKETING AMBASSADOR POCT URINE DIPSTICK - STAT 06/22/2018 4:29 AM MARKETING AMBASSADOR TEST STAT 06/22/2018 4:[address] ABDOMEN AND PELVIS W STAT 06/22/2018 Right lower quadrant CONTRAST - ROUTINE 4:07 AM MARKETING AMBASSADOR abdominal pain BMP POC Routine 06/22/2018 3:37 AM MARKETING AMBASSADOR VBG POC Routine 06/22/2018 3:29 AM MARKETING AMBASSADOR CBC/DIFF STAT 06/22/2018 3:12 AM MARKETING AMBASSADOR after 09/14/2017 Results * UA CHEMISTRIES (06/22/2018 4:30 AM MARKETING AMBASSADOR) Color Yellow BT MAIN-STATION 1 Clarity Clear BT MAIN-STATION 1 Spec [place] >1.035 (H) 1.001 - 1.035 BT MAIN-STATION [...] MAIN-STATION 1 Specimen Urine Performing Organization Address City/[facility] Phone Number MISYS BT MAIN-STATION 1 * POCT URINE DIPSTICK - (06/22/2018 4:29 AM MARKETING AMBASSADOR) present Control not present * TEST (06/22/2018 4:15 AM MARKETING AMBASSADOR) Negative BT MAIN-STATION 1 Specimen Urine Performing Organization Address City/[facility] Phone Number MISYS BT MAIN-STATION 1 * CT ABDOMEN AND PELVIS W CONTRAST - ROUTINE (06/22/2018 4:07 AM MARKETING AMBASSADOR) Impressions Performed At IMPRESSION: SMS No acute [...] Interface, Rad/Mammog In - 06/22/2018 5:06 AM MARKETING AMBASSADOR EXAM: CT Abdomen and Pelvis WITH contrast [...] SMS * BMP POC (06/22/2018 3:37 AM MARKETING AMBASSADOR) CO2 POC 29 21 - 32 mmol/L [...] BT MAIN-STATION Afr-Am 1 Performing Organization Address [facility] Phone Number MISYS BT MAIN-STATION 1 * VBG POC (06/22/2018 3:29 AM MARKETING AMBASSADOR) pH, Jaki POC 7.47 (H) 7.33 - [...] mmol/L BT MAIN-STATION 1 Performing Organization Address [facility] Phone Number MISYS BT MAIN-STATION 1 * CBC/DIFF (06/22/2018 3:12 AM MARKETING AMBASSADOR) WBC 6.3 4.5 - 11.0 K/uL BT [...] Phone Number MISYS BT MAIN-STATION 2 after 09/14/2017 Insurance Type Payer Benefit Subscriber ID Effective Phone Address Plan / Dates Group [employer] SELF-PAY [employer] xxxxxxxxx 2018 [phone] [id number] [place] [address] Advance Directives For more information, please contact: [address] [address] Date Inactivated Comments Code Status Date Activated 06/12/2014 11:41 PM Full Code 06/12/2014 6:25 AM 05/20/2012 2:12 PM Full Code 05/19/2012 11:28 AM 05/05/2012 5:50 PM Full Code 05/04/2012 6:05 PM
--- NOTE | 2018-10-12 10:15 | NUR ---
DR. ROA AT BEDSIDE FOR PT EVAL AT THIS TIME.
[2018-10-12] MEDS ORDERED: SODIUM CHLORIDE 0.9% 1000ML 1,000 ML IV STA (10:20)
--- NOTE | 2018-10-12 10:40 | NUR ---
RADIOLOGY AT BEDSIDE FOR CXR, PT ALSO GIVEN [address]AN.
[2018-10-12 10:49] LABS: BASOPHILS % 0.3 % (0.0-1.0); EOSINOPHILS # (AUTO) 0.1 (0.0-0.4); EOSINOPHILS % 1.1 % (0.0-6.0); HEMATOCRIT 34.8 % (34.2-44.1); HEMOGLOBIN 11.2 g/dL (12.0-16.0); LYMPHOCYTES % 32.2 % (18.0-39.1); MEAN CORPUSCULAR HEMOGLOBIN 27.5 pg (28-32); MEAN CORPUSCULAR HGB CONC 32.2 g/dL (31-35); MEAN CORPUSCULAR VOLUME 85.5 fL (81-99); MONOCYTES # (AUTO) 0.5 (0.2-0.8); MONOCYTES % 7.8 % (4.4-11.3); NEUTROPHILS # (AUTO) 3.6 (2.1-6.9); NEUTROPHILS % 58.3 % (38.7-80.0); PLATELET COUNT 276 x10e3/uL (140-360); RED BLOOD COUNT 4.07 x10e6/uL (3.6-5.1); RED CELL DISTRIBUTION WIDTH 13.8 % (11.7-14.4)
[2018-10-12 10:53] LABS: CLARITY,URINE HAZY (CLEAR); COLOR,URINE YELLOW (YELLOW); LEUKOCYTE ESTERASE ,URINE NEGATIVE (NEGATIVE); NITRITE,URINE NEGATIVE (NEGATIVE); PROTEIN,URINE DIPSTICK 1+ (NEGATIVE)
[2018-10-12 10:54] LABS: BACTERIA,URINE FEW /HPF; BILIRUBIN,URINE NEGATIVE (NEGATIVE); EPITHELIAL CELLS,URINE FEW /LPF; KETONES,URINE NEGATIVE (NEGATIVE); RBC,URINE 0-5 /HPF (0-5); URINE UROBILINOGEN 0.2 mg/dL (0.2 - 1); WBC,URINE (MAN) 0-5 /HPF (0-5)
[2018-10-12 10:58] LABS: INR 0.9; PROTHROMBIN TIME 12.6 seconds (11.9-14.5)
[2018-10-12 10:59] LABS: PARTIAL THROMBOPLASTIN TIME 26.9 seconds (23.8-35.5)
[2018-10-12] MEDS ORDERED: ONDANSETRON HCL INJ 2MG/ML 2ML 2 MG/ML VIAL IV ONE (11:00)
[2018-10-12] MEDS ORDERED: MORPHINE SULFATE INJ 4 MG/ML INJ 1ML IV ONE (11:00)
[2018-10-12 11:09] LABS: ALANINE AMINOTRANSFERASE 26 IU/L (0-55); ALBUMIN 3.5 g/dL (3.5-5.0); ALBUMIN/GLOBULIN RATIO 0.8 (0.8-2.0); ALKALINE PHOSPHATASE 74 IU/L (40-150); ANION GAP 12.1 mmol/L (8-16); BLOOD UREA NITROGEN 10 mg/dL (7-26); BUN/CREATININE RATIO 10 (6-25); CALCIUM 9.2 mg/dL (8.4-10.2); CARBON DIOXIDE 28 mmol/L (22-29); CHLORIDE 102 mmol/L (98-107); CREATINE KINASE 160 IU/L (29-168); CREATININE, SERUM 0.97 mg/dL (0.57-1.11); EST GLOMERULAR FILTRATION RATE > 60 ML/MIN (60-); GLUCOSE 93 mg/dL (74-118); MAGNESIUM 2.1 MG/DL (1.3-2.1); POTASSIUM 4.1 mmol/L (3.5-5.1); SODIUM 138 mmol/L (136-145)
--- NOTE | 2018-10-12 11:09 | Diagnostic Imaging Report ---
EXAMINATION: CHEST SINGLE (PORTABLE) COMPARISON: None INDICATION: Abdominal pain, hematoma ^ABD PAIN ^[id number] ^1040 DISCUSSION: Frontal view of the chest obtained at 1042 hours. HEART AND MEDIASTINUM: The cardiomediastinal silhouette is unremarkable. LINES: None. LUNGS: Mild eventration of the right diaphragm. There is overlying atelectasis. No interstitial thickening. PLEURA: No pleural effusion or pneumothorax. BONES AND SOFT TISSUES: No focal osseous lesion. The soft tissues are normal. IMPRESSION: Eventration of the right diaphragm with overlying atelectasis. Signed by: Dr. Adrien Tomlin MD on 10/12/2018 11:06 AM
--- NOTE | 2018-10-12 12:21 | Diagnostic Imaging Report ---
CT Abdomen And Pelvis with Intravenous Contrast INDICATION: ^S/P ANGIO RIGHT FEM ARTERY 10D AGO, RLQ ABD PAIN X 1 WEEK ^[id number] ^3819 TECHNIQUE: Thin collimation axial images obtained from the diaphragm to the level of the pubic symphysis following the uneventful administration of 100 cc of low osmolar, nonionic intravenous contrast. Dose reduction techniques used: Automated exposure control, adjustment of the mAs and/or kVp according to patient size, standardized low-dose protocol, and/or iterative reconstruction technique. RADIATION DOSE: Total DLP: 1409.3 mGy*cm Estimated effective dose: (DLP x 0.015 x size factor) mSv CTDIvol has been reviewed. It is below the limits set by the Radiation Protocol Committee (RPC). COMPARISON: None. ABDOMEN FINDINGS: Lung Bases: Clear. The visualized portions of the mediastinum are normal.. Liver: Normal attenuation. No evidence for mass. Gallbladder: Absent. No biliary ductal dilatation. Pancreas: Normal attenuation without mass or ductal dilatation. Spleen: Normal in size. No evidence of mass.. Adrenal Glands: No evidence for mass. Kidneys: Right: Normal enhancement. Subcentimeter low attenuating lesions in the upper and lower poles are too small to characterize but are likely cysts. Punctate calculus in the upper pole. No hydronephrosis. Left: Normal enhancement. No soft tissue mass. No hydronephrosis. Lymph Nodes: No abdominal or retroperitoneal lymphadenopathy. Aorta: Normal in diameter PELVIS FINDINGS: Bowel: Stomach: Normal in caliber with normal wall thickness. Small Bowel: Normal in caliber with normal wall thickness. Large Bowel: Normal in caliber with normal wall thickness. Appendix: Normal appendix. Bladder: Normal. The uterus is absent. No adnexal mass. Peritoneum/retroperitoneum: Intrapelvic hematoma surrounds the right external iliac vascular bundle and causes mass effect on several bowel loops in the right lower quadrant. This measures 8.1 x 6.3 x 11.4 cm (AP, transverse, craniocaudal). No active extravasation from the iliac artery. No evidence of intraperitoneal fluid or air. Bones: Mild degenerative changes of the spine with a bone island in the L4 vertebral body. Soft tissues: No evidence of hematoma in the right or left inguinal regions.. IMPRESSION: 1. Intrapelvic, retroperitoneal hematoma in the right pelvis surrounding the external iliac vessels as described above. 2. Tiny right intrarenal calculus. Low attenuating lesions in the right kidney suggestive of cysts. 3. Cholecystectomy and hysterectomy. Signed by: Dr. Adrien Tomlin MD on 10/12/2018 12:17 PM
[2018-10-12] MEDS ORDERED: SODIUM CHLORIDE 0.9% 1000ML 1,000 ML IV SCH (12:57)
[2018-10-12] MEDS ORDERED: MORPHINE SULFATE INJ 4 MG/ML INJ 1ML IV PRN (13:00)
[2018-10-12] MEDS ORDERED: DIAZEPAM5 MG PO (13:08)
[2018-10-12] MEDS ORDERED: LOSARTAN-HCTZ1 EAC1 PO (13:08)
--- OUTSIDE RECORDS SUMMARY | 2018-10-12 13:24 | XMS REPORT | Clinical Summary ---
Author Author [facility] Organization [facility] Address Unknown Phone Unavailable Care Team Providers Care Home School Liaison Officer Name Role Phone PCP Unavailable Allergies Comments [...] Taken Vital Sign Reading 06/22/2018 6:30 AM WATERPROOFING SUPERVISOR Blood Pressure 174/103 06/22/2018 6:30 AM WATERPROOFING SUPERVISOR Pulse 82 06/22/2018 6:30 AM WATERPROOFING SUPERVISOR Temperature 36.8 C (98.3 F) 06/22/2018 6:30 AM WATERPROOFING SUPERVISOR Respiratory Rate 18 06/22/2018 6:30 AM WATERPROOFING SUPERVISOR Oxygen Saturation 97% - Inhaled Oxygen - Concentration - Weight - - Height - - Body Mass Index - Plan of Treatment Health Maintenance Due Date Last Done Comments Cervical Cancer Scrn (3 1995 Yrs) Breast Cancer Scrn 2014 (Yearly) IMM Influenza Seasonal 04/28/2018Apr to September (>/=19 yrs) Procedures Comments Procedure Name Priority Date/Time Associated Diagnosis UA CHEMISTRIES STAT 06/22/2018 4:30 AM WATERPROOFING SUPERVISOR POCT URINE DIPSTICK - STAT 06/22/2018 4:29 AM WATERPROOFING SUPERVISOR TEST STAT 06/22/2018 4:[address] ABDOMEN AND PELVIS W STAT 06/22/2018 Right lower quadrant CONTRAST - ROUTINE 4:07 AM WATERPROOFING SUPERVISOR abdominal pain BMP POC Routine 06/22/2018 3:37 AM WATERPROOFING SUPERVISOR VBG POC Routine 06/22/2018 3:29 AM WATERPROOFING SUPERVISOR CBC/DIFF STAT 06/22/2018 3:12 AM WATERPROOFING SUPERVISOR after 10/11/2017 Results * UA CHEMISTRIES (06/22/2018 4:30 AM WATERPROOFING SUPERVISOR) Color Yellow BT MAIN-STATION 1 Clarity Clear BT MAIN-STATION 1 Spec [place] >1.035 (H) 1.001 - 1.035 BT MAIN-STATION [...] 1 Specimen Urine Performing Organization Address City/[facility] Phone Number MISYS BT MAIN-STATION 1 * POCT URINE DIPSTICK - (06/22/2018 4:29 AM WATERPROOFING SUPERVISOR) present Control not present * TEST (06/22/2018 4:15 AM WATERPROOFING SUPERVISOR) Negative BT MAIN-STATION 1 Specimen Urine Performing Organization Address City/[facility] Phone Number MISYS BT MAIN-STATION 1 * CT ABDOMEN AND PELVIS W CONTRAST - ROUTINE (06/22/2018 4:07 AM WATERPROOFING SUPERVISOR) Impressions Performed At IMPRESSION: SMS No acute [...] Interface, Rad/Mammog In - 06/22/2018 5:06 AM WATERPROOFING SUPERVISOR EXAM: CT Abdomen and Pelvis WITH contrast [...] SMS * BMP POC (06/22/2018 3:37 AM WATERPROOFING SUPERVISOR) CO2 POC 29 21 - 32 mmol/L [...] Afr-Am 1 Performing Organization Address [facility] Phone Number MISYS BT MAIN-STATION 1 * VBG POC (06/22/2018 3:29 AM WATERPROOFING SUPERVISOR) pH, Jaki POC 7.47 (H) 7.33 - [...] MAIN-STATION 1 Performing Organization Address [facility] Phone Number MISYS BT MAIN-STATION 1 * CBC/DIFF (06/22/2018 3:12 AM WATERPROOFING SUPERVISOR) WBC 6.3 4.5 - 11.0 K/uL BT [...] Effective Phone Address Plan / Dates Group [facility] SELF-PAY [facility] xxxxxxxxx 2018 [phone] [id number] [address] Advance Directives For more information, please contact: [address] [address] Date Inactivated Comments Code Status Date Activated 06/12/2014 11:41 PM Full Code 06/12/2014 6:25 AM 05/20/2012 2:12 PM Full Code 05/19/2012 11:28 AM 05/05/2012 5:50 PM Full Code 05/04/2012 6:05 PM
--- OUTSIDE RECORDS SUMMARY | 2018-10-12 13:25 | XMS REPORT | Clinical Summary ---
Author Author [facility] Organization [facility] Address Unknown Phone Unavailable Care Team Providers Care Poultry Husbandman Name Role Phone Jaida Torres MD PCP [...] Overview: Added automatically from request for surgery [id number] Chest pain 10/29/2017 Flank pain 09/26/2017 Hypertensive [...] (Primary Dx); Hypoxemia; Hypertension, unspecified type 10/28/2017 [facility] General Internal Medicine - Encounter [...] Taken Vital Sign Reading 08/28/2018 3:07 PM [employer]ER DESIGNER Blood Pressure 134/70 08/28/2018 3:07 PM [employer] DESIGNER Pulse 89 08/28/2018 3:07 PM [employer] DESIGNER Temperature 36.9 C (98.5 F) 08/28/2018 3:07 PM [employer] DESIGNER Respiratory Rate 15 08/28/2018 3:07 PM [employer]ER DESIGNER Oxygen Saturation 100% - Inhaled Oxygen - Concentration 08/28/2018 5:15 AM [employer]ER DESIGNER Weight 142 kg (312 lb) 08/28/2018 5:15 AM [employer] CO[employer]ER DESIGNER Height 175.3 cm (5' 9") 08/28/2018 5:15 AM [employer]ER DESIGNER Body Mass Index 46.07 Plan of Treatment Health Maintenance Due Date Last Done Comments CERVICAL CANCER SCREENING 1995 INFLUENZA VACCINE 02/26/2018 Procedures Comments Procedure Name Priority Date/Time Associated Diagnosis NM MYOCARDIAL PERFUSION Routine 08/29/2018 STRESS REST 2 DAY 12:20 PM [employer]ER CV STRESS TEST NUCLEAR Routine 08/29/2018 CARDIO 12:20 PM [employer]IGNER ECG 12-LEAD STAT 08/28/2018 12:29 PM [employer] DESIGNER TROPONIN Timed 08/28/2018 10:10 AM [employer] DESIGNER US RENAL STAT 08/28/2018 7:00 AM [employer]ER HEMOGLOBIN A1C Routine 08/28/2018 4:02 AM [employer]ER LIPID PANEL Routine 08/28/2018 4:02 AM [employer]ER TROPONIN Timed 08/28/2018 4:02 AM [employer] DESIGNER ESTIMATED GFR Routine 08/28/2018 4:02 AM [employer]ER MAGNESIUM LEVEL Routine 08/28/2018 4:02 AM [employer] DESIGNER IONIZED CALCIUM Routine 08/28/2018 4:02 AM [employer]ER PHOSPHORUS LEVEL Routine 08/28/2018 4:02 AM [employer]IGNER COMPREHENSIVE METABOLIC Routine 08/28/2018 PANEL 4:02 AM [employer]ER [employer]ER HC COMPLETE BLD COUNT Routine 08/28/2018 W/AUTO DIFF 4:02 AM [employer] DES[employer]ER XR CHEST 2 VW STAT 08/28/2018 1:01 AM [employer]IGNER HCG QUALITATIVE, SERUM STAT 08/28/2018 SCREEN 12:26 AM [employer]ER DESIGNER ECG ED PRELIMINARY Routine 08/28/2018 INTERPRETATION 12:08 AM [employer]ER DESIGNER D-DIMER STAT 08/27/2018 10:31 PM [employer]ER DESIGNER ESTIMATED GFR STAT 08/27/2018 10:31 PM [employer]ER DESIGNER B NATRIURETIC PEPTIDE STAT 08/27/2018 10:31 PM [employer]ER DESIGNER TROPONIN STAT 08/27/2018 10:31 PM [employer] DESIGNER COMPREHENSIVE METABOLIC STAT 08/27/2018 PANEL 10:31 PM [employer]IGNER HC COMPLETE BLD COUNT STAT 08/27/2018 W/AUTO DIFF 10:31 PM [employer]ER DESIGNER ECG 12-LEAD STAT 08/27/2018 10:05 PM [employer]ER DESIGNER ECHOCARDIOGRAM 2D Routine 06/09/2018 COMPLETE W MMODE SPECTRAL 11:40 AM ROLLER COASTER DESIGNER COLOR DOPPLER ([id number]) ESTIMATED GFR Routine 06/09/2018 6:30 AM [employer]ER DESIGNER HEMOGLOBIN A1C Routine 06/09/2018 6:30 AM [employer]ER DESIGNER THYROID STIMULATING Routine 06/09/2018 HORMONE 6:30 AM [employer]ER DESIGNER LIPID PANEL Routine 06/09/2018 6:30 AM [employer]ER DESIGNER COMPREHENSIVE METABOLIC Routine 06/09/2018 PANEL 6:30 AM [employer]ER DESIGNER HC COMPLETE BLD COUNT Routine 06/09/2018 W/AUTO DIFF 6:30 AM RO[employer]ER [employer]ER DESIGNER TROPONIN Timed 06/08/2018 11:00 PM [employer]ER DESIGNER GASTROINTESTINAL PANEL Routine 06/08/2018 3:00 [address] [employer] [address] [address] ABDOMEN PELVIS W STAT 06/08/2018 CONTRAST 2:23 PM [employer]ER DESIGNER ESTIMATED GFR STAT 06/08/2018 1:09 PM [employer]ER DESIGNER TROPONIN Routine 06/08/2018 1:09 PM [employer]ER [employer]ER DESIGNER LIPASE LEVEL STAT 06/08/2018 1:09 PM [employer]ER DESIGNER COMPREHENSIVE METABOLIC STAT 06/08/2018 PANEL 1:09 PM [employer]ER DESIGNER HC COMPLETE BLD COUNT STAT 06/08/2018 W/AUTO DIFF 1:09 PM [employer]ER [employer]ER DESIGNER ECG 12-LEAD STAT 06/08/2018 12:58 PM [employer]ER [employer]ER DESIGNER XR CHEST 1 VW PORTABLE STAT 06/08/2018 12:58 PM [employer]ER DESIGNER ECG ED PRELIMINARY Routine 06/08/2018 INTERPRETATION 12:36 PM RO[employer]ER CO[employer]ER DESIGNER ZZESTIMATED GFR Routine 02/13/2018 5:05 AM CDT [...] PRELIMINARY Routine 02/10/2018 INTERPRETATION 9:46 PM CDT [facility], E/M Routine 02/10/2018 30-74 MINUTES [...] * Cv stress test (08/29/2018 12:20 PM ROLLER CO[employer]ER DESIGNER) Resting HR 94 [facility] MUSE Resting BP [...] Stress Test Impression Waveform interpreted in report [facility] MUSE associated with image study. No interpretation is provided as part of this Stress ECG report.--Electronically Signed By Erik Zimmerman MD ([id number]), news assignment editor [place] ([id number]) on 08/28/2018 11:40:06 AM Target HR 176.00 bpm [facility] MUSE Narrative Performed At Performing Organization Address [facility] Phone Number [facility] MUSE [address] [place] [address] * Nm myocardial perfusion (08/29/2018 12:20 PM ROLLER COASTER DESIGNER) Resting HR 94 BPM [facility] Resting [...] is seen. EF 42% Performing Organization Address [facility] Phone Number NM[facility] [address] [place] [address] * ECG 12 lead (08/28/2018 12:29 PM RO[employer]ER CO[employer]ER DESIGNER) Only the most recent of 7 results within the time period is included. Ventricular rate 93 [facility] Atrial rate 93 [facility] M[facility] UT interval 174 [facility] QRSD interval 90 [facility] QT interval 356 [facility] QTC interval 442 [facility] P axis 1 60 [facility] QRS axis 1 29 [facility] T wave axis 72 [facility] EKG impression Normal sinus [facility] MUSE rhythm-Nonspecific T wave abnormality-Abnormal ECG-In automated comparison with ECG of 27-AUG-2018 22:05,-Nonspecific T wave abnormality now evident in Lateral leads- Narrative Performed At Performing Organization Address [facility] Phone Number [facility] MUSE [address] [place] [address] * Troponin (08/28/2018 10:10 AM ROLLER CO[employer]ER DESIGNER) Only the most recent of 10 results within the time period is included. Troponin <0.30 0.00 - 0.30 ng/mL MIKHAIL DICKENS Comment: [facility] 0.11 - 1.49 ng/mlMay indicate increased risk of acute coronary syndrome. >=1.5 ng/ml Consistent with acute myocardial infarction. The diagnostic value of a single normal or non-diagnostic result is questionable.Serial samples at 2-6 hour intervals are required to rule out acute myocardial injury. Specimen Plasma specimen Performing Organization Address City/State/Zipcode Phone Number [facility] [address] [place] [address] PATHOLOGY AND GENOMIC MEDICINE [facility] [address] * US Renal (08/28/2018 7:00 AM ROLLER CO[employer]ER DESIGNER) Narrative Performed At [facility]AMINATION[facility] CLINICAL H[facility]ORY:Renal failureacute (kidney injury) COMPARISON:CT from 06/08/2018. IMPRESSION: 1.There is no hydronephrosis. 2.Renal cortical echogenicity is within normal limits. 3.Right kidney measures 12.5 x 5 x 5.3 cm. Subcentimeter hypodense lesions noted on prior CT are not identified ultrasound. 4.Left kidney measures 4.6 x 5.1 x 5.6 cm. 5.Bladder is unremarkable. [facility]-[id number] Procedure Note Interface, Radiology Results Incoming - 08/28/2018 7:35 AM ROLLER COASTER DESIGNER EXAMINATION: US RENAL CLINICAL HISTORY: Renal failure acute (kidney injury) COMPARISON: CT from 06/08/2018. IMPRESSION: 1. There is no hydronephrosis. 2. Renal cortical echogenicity is within normal limits. 3. Right kidney measures 12.5 x 5 x 5.3 cm. Subcentimeter hypodense lesions noted on prior CT are not identified ultrasound. 4. Left kidney measures 4.6 x 5.1 x 5.6 cm. 5. Bladder is unremarkable. [facility]-[id number] Performing Organization Address City/State/Zipcode Phone Number [facility] [address] [place] [address] * Estimated GFR (08/28/2018 4:02 AM ROLLER COASTER DESIGNER) Only the most recent of 4 results within the time period is included. Estimated GFR 75 mL/min/1.73 m2 MIKHAIL DICKENS Comment: [facility] CatergoryUnitsInte rpretation G1 >=90 Normal or high G2 60-89Mildly decreased [id number] Mildly to moderately decreased [id number] Moderately to severely decreased G4 15-29Severely decreased G5 <15Kidney failure The eGFR was calculated using the Chronic Kidney Disease Epidemiology Collaboration (CKD-EPI) equation. Interpretation is based on recommendations of the National Kidney Foundation-Kidney Disease Outcomes Quality Initiative (NKF-KDOQI) published in 2014. Specimen Plasma specimen Performing Organization Address City/State/Zipcode Phone Number [facility] [address] [place] [address] PATHOLOGY AND GENOMIC MEDICINE [facility] [address] * CBC with platelet and differential (08/28/2018 4:02 AM ROLLER COASTER DESIGNER) Only the most recent of 10 results within the time period is included. WBC 7.0 4.5 - 11.0 k/uL [facility] RBC 4.26 4.20 - 5.50 m/uL [facility] HGB 11.6 (L) 12.0 - 16.0 g/dL [facility] HCT 37.3 37.0 - 47.0 % [facility] MCV 87.6 82.0 - 100.0 fL [facility] MCH 27.2 27.0 - 34.0 pg [facility] MCHC 31.1 31.0 - 37.0 g/dL [facility] RDW - SD 48.6 37.0 - 55.0 fL [facility] MPV 12.0 (H) 6.9 - 11.0 fL [facility] Platelet count 195 150 - 400 K/uL [facility] Nucleated RBC 0.00 /100 WBC [facility] Neutrophils 47.5 39.0 - 69.0 % [facility] Lymphocytes 43.2 25.0 - 45.0 % [facility] Monocytes 7.7 0.0 - 10.0 % [facility] Eosinophils 0.9 0.0 - 5.0 % [facility] Basophils 0.6 0.0 - 1.0 % [facility] Immature granulocytes 0.1 0.0 - 1.0 % [facility] Specimen Blood Performing Organization Address City/[facility]/Zipcode Phone Number [facility] [place] [address] PATHOLOGY AND [facility] MEDICINE [address] * Phosphorus level (08/28/2018 4:02 AM ROLLER COASTER DESIGNER) Only the most recent of 4 results within the time period is included. Phosphorus 3.8 2.4 - 4.5 mg/dL [facility] Specimen Plasma specimen Performing Organization Address City/[facility] Phone Number [facility] [place] [address] * Magnesium level (08/28/2018 4:02 AM ROLLER COASTER DESIGNER) Only the most recent of 4 results within the time period is included. Magnesium 1.7 1.6 - 2.6 mg/dL [facility] Specimen Plasma specimen Performing Organization Address City/[facility] Phone Number [facility] [place] [address] PATH[address] * Hemoglobin A1c (08/28/2018 4:02 AM RO[employer]ER CO[employer]ER DESIGNER) Only the most recent of 2 results within the time period is included. Hemoglobin A1C 5.0 4.0 - 6.0 % [facility] Comment: [facility] Less than 6% - Goal of therapy for Type II Diabetes Less than 7%-Goal of therapy for Type I Diabetes Less than 8%-Accepta ble control for Type I or Type II Diabetes Greater than 8%-Unacceptabl e control; action indicated. ([id number]) Performing Organization Address City/[facility]/Zipcode Phone Number [facility] [place] [address] PATHOLOGY AND GENOMIC MEDICINE [address] * Ionized calcium (08/28/2018 4:02 AM ROLLER COASTER DESIGNER) Only the most recent of 5 results within the time period is included. pH 7.38 [facility] Ionized calcium 1.10 (L) 1.11 - 1.32 mmol/L [facility] Specimen Plasma specimen Performing Organization Address [facility] [place] [address] PATHOLOGY AND GENOMIC MEDICINE [address] * Lipid panel (08/28/2018 4:02 AM ROLLER COASTER DESIGNER) Only the most recent of 2 results within the time period is included. Cholesterol 145 0 - 199 mg/dL [facility] Triglycerides 93 0 - 149 mg/dL [facility] HDL cholesterol 39 (L) 40 - 99,999 mg/dL [facility] LDL cholesterol 101 (H) 0 - 99 mg/dL [facility] Lipid panel See below [facility] interpretation Comment: [facility] Total Cholesterol (mg/dL) <200 Desirable 200-239Borderline -high [...] mg/dL) Specimen Plasma specimen Performing Organization Address City/[facility] Phone Number [facility] DEPARTMENT OF [address] [place] [address] PATHOLOGY AND GENOMIC MEDICINE [facility] [address] * Comprehensive metabolic panel (08/28/2018 4:02 AM ROLLER COASTER DESIGNER) Only the most recent of 10 results within the time period is included. Sodium 139 135 - 148 mEq/L [facility] Potassium 4.2 3.5 - 5.0 mEq/L [facility] Chloride 101 98 - 112 mEq/L [facility] CO2 28 24 - 31 mEq/L [facility] Anion gap 10@ANIO 7 - 15 mEq/L [facility] BUN 15 6 - 20 mg/dL [facility] Creatinine 1.05 (H) 0.50 - 0.90 mg/dL [facility] Glucose 104 (H) 65 - 99 mg/dL [facility] Calcium 9.0 8.3 - 10.2 mg/dL [facility] Protein 7.0 6.3 - 8.3 g/dL [facility] Albumin 3.7 3.5 - 5.0 g/dL [facility] A/G ratio 1.1 0.7 - 3.8 [facility] Alkaline phosphatase 74 35 - 104 U/L [facility] AST 22 10 - 35 U/L [facility] ALT 23 5 - 50 U/L [facility] Total bilirubin 0.3 0.2 - 1.2 mg/dL [facility] Specimen Plasma specimen Performing Organization Address City/State/Zipcode Phone Number [facility] DEPARTMENT OF [address] [place] [address] PATHOLOGY AND GENOMIC MEDICINE [facility] [address] * XR Chest 2 Vw (08/28/2018 1:01 AM ROLLER COASTER DESIGNER) Narrative Performed At EXAMINATION: XR CHEST 2 VW RADIANT CLINICAL HISTORY: Chest pain COMPARISON:06/08/2018 chest x-ray. IMPRESSION: The lungs are clear. No pleural effusion or pneumothorax. The cardiomediastinal silhouette is normal. No acute osseous abnormalities. [facility]-[id number] Procedure Note Interface, Radiology Results Incoming - 08/28/2018 1:11 AM ROLLER COASTER DESIGNER EXAMINATION: XR CHEST 2 VW CLINICAL HISTORY: Chest pain COMPARISON: 06/08/2018 chest x-ray. IMPRESSION: The lungs are clear. No pleural effusion or pneumothorax. The cardiomediastinal silhouette is normal. No acute osseous abnormalities. [facility]-[id number] Performing Organization Address City/[facility]/Zipcode Phone Number [facility] [address] [place] [address] * hCG qualitative, serum screen (08/28/2018 12:26 AM ROLLER COASTER DESIGNER) hCG qualitative, serum NegativeComment: Sensitivity [facility] of HCG test: 25 mIU/mL [facility] Specimen Blood Performing Organization Address City/[facility]/Zipcode Phone Number [facility] [address] [place] [address] PATHOLOGY AND GENOMIC MEDICINE [facility] [address] * ECG ED Preliminary Interpretation - Not an Order (08/28/2018 12:08 AM ROLLER COASTER DESIGNER) Only the most recent of 4 results within the time period is included. Narrative Performed At Isaac Kenney MD 08/28/20187:06 PM ECG ED Preliminary Interpretation - Not an Order Performed by: Isaac Kenney MD Authorized by: Isaac Kenney MD ECG reviewed by ED Physician in the absence of a senior property accountant: yes Interpretation: Interpretation: normal Rate: ECG rate:112 ECG rate assessment: tachycardic Rhythm: Rhythm: sinus rhythm Ectopy: Ectopy: none QRS: QRS axis:Normal QRS intervals:Normal Conduction: Conduction: normal ST segments: ST segments:Normal T waves: T waves: normal * D-dimer (08/27/2018 10:31 PM ROLLER COASTER DESIGNER) D-dimer 0.36 0.00 - 0.40 ug/mL [facility]OSPITAL[facility] Comment: [facility] Units are ug/ml Fibrinogen Equivalent Unit. When [...] Blood Performing Organization Address City/State/Zipcode Phone Number [facility] [address] [place] [address] PATHOLOGY AND GENOMIC MEDICINE [address] * B natriuretic peptide (08/27/2018 10:31 PM ROLLER COASTER DESIGNER) Only the most recent of 3 results within the time period is included. BNP 19 0 - 100 pg/mL [facility] Specimen Blood Performing Organization Address City/[facility]/[place] [address] PATHOLOGY AND GENOMIC MEDICINE [address] * Echocardiogram complete w contrast and 3D if needed (06/09/2018 11:40 AM ROLLER COASTER DESIGNER) AoV Area, Vmax 3.20 cm2 [facility] [...] [facility] LVOT Vmn 0.56 [facility] Cardenas Grad 2.57 [facility] Diat Pancho 0.80 [facility] Aov [...] Organization Address City/State/Zipcode Phone Number [facility] [address] [place] [address] * Thyroid stimulating hormone (06/09/2018 6:30 AM ROLLER COASTER DESIGNER) TSH 2.60 0.27 - 4.20 uIU/mL [facility] Specimen Plasma specimen Performing Organization Address City/[facility]/Zipcode Phone Number [facility] [address] [place] [address] PATHOLOGY AND GENOMIC MEDICINE [facility] [address] * Gastrointestinal panel (06/08/2018 3:00 PM ROLLER COASTER DESIGNER) Gastrointestinal panel Positive for Sapovirus [facility] Negative for all other pathogens tested: [...] Specimen Stool - Nonpreserved Performing Organization Address City/[facility]/Zipcode Phone Number [facility] DEPARTMENT [address] [place] [address] PATHOLOGY AND GENOMIC MEDICINE [address] * CT Abdomen Pelvis W Contrast (06/08/2018 2:23 PM ROLLER COASTER DESIGNER) Only the most recent of 3 results [...] acute abnormality in the abdomen and pelvis. [facility]-[id number] Procedure Note [facility], Radiology Results Incoming - 06/08/2018 2:43 PM ROLLER COASTER DESIGNER EXAMINATION: CT ABDOMEN PELVIS W CONTRAST CLINICAL [...] acute abnormality in the abdomen and pelvis. [facility]-[id number] Performing Organization Address City/[facility]/Zipcode Phone Number [facility] [address] [place] [address] * Lipase level (06/08/2018 1:09 PM ROLLER COASTER DESIGNER) Only the most recent of 5 results within the time period is included. Lipase 48 13 - 60 U/L [facility] Specimen Plasma specimen Performing Organization Address City/[facility] Phone Number [facility] [place] [address] PATHOLOGY AND GENOMIC MEDICINE [address] * XR Chest 1 Vw Portable (06/08/2018 12:58 PM ROLLER COASTER DESIGNER) Only the most recent of 2 results within the time period is included. Narrative Performed At Examination: [facility]R CHEST 1 VW [facility] Clinical history: hypertension Comparison: February 10, 2018 Impression: 1. The heart and pulmonary vasculature are within normal limits. 2. No infiltrate or effusion is demonstrated. 3. There is no acute osseous pathology. CONCLUSION: NO RADIOGRAPHIC EVIDENCE OF ACUTE CARDIOPULMONARY ABNORMALITY. [facility]-[id number] Procedure Note Hm Interface, Radiology Results Incoming - 06/08/2018 1:08 PM ROLLER COASTER DESIGNER Examination: XR CHEST 1 VW PORTABLE Clinical history: hypertension Comparison: February 10, 2018 Impression: 1. The heart and pulmonary vasculature are within normal limits. 2. No infiltrate or effusion is demonstrated. 3. There is no acute osseous pathology. CONCLUSION: NO RADIOGRAPHIC EVIDENCE OF ACUTE CARDIOPULMONARY ABNORMALITY. [facility]-[id number] Performing Organization Address [facility]/Zipcode Phone Number [facility] [address] [place] [address] * Estimated GFR (02/13/2018 5:05 AM CDT) Only the most recent of 7 results within the time period is included. GFR Non Af Amer 60 mL/min/1.73 m2 [facility] DEPARTMENT OF PATHOLOGY AND GENOMIC MEDICINE GFR Af Amer 73 mL/min/1.73 m2 [facility] DEPARTMENT OF Comment: PATHOLOGY AND Chronic kidney [...] Americans. Specimen Plasma specimen Performing Organization Address City/[facility] Phone Number [address] [place] [address] PATHOLOGY AND GENOMIC MEDICINE * Surgical pathology request (02/12/2018 1:29 PM CDT) [facility] DEPARTMENT OF PATHOLOGY AND GENOMIC MEDICINE Surgical pathology report See link below for PDF Lab [facility] DEPARTMENT OF Report PATHOLOGY AND GENOMIC MEDICINE Result status This is Final Report to [facility] DEPARTMENT OF [id number] PATHOLOGY AND GENOMIC MEDICINE Performing Organization Address [facility] [place] [place] [address] PATHOLOGY AND GENOMIC MEDICINE * Lactic acid level, SEPSIS - Now and repeat 2x every 3 hours (02/11/2018 3:45 AM CDT) Only the most recent of 3 results within the time period is included. Lactic acid 1.8 0.5 - 2.2 mmol/L [facility] DEPARTMENT OF PATHOLOGY AND GENOMIC MEDICINE Specimen Plasma specimen Performing Organization Address City/[facility] Phone Number [address] [place] [address] PATHOLOGY AND GENOMIC MEDICINE * Amylase level (02/11/2018 3:45 AM CDT) Amylase 39 13 - 73 U/L [facility] PATHOLOGY AND GENOMIC MEDICINE Specimen Plasma specimen Performing Organization Address [facility] Phone Number [address] [place] [address] PATHOLOGY AND GENOMIC MEDICINE * Urinalysis screen and microscopy, with reflex to culture (02/10/2018 11:04 PM CDT) Only the most recent of 2 results within the time period is included. Specimen site Clean catch [facility] DEPARTMENT OF PATHOLOGY AND GENOMIC MEDICINE Color, UA Yellow [facility] DEPARTMENT OF PATHOLOGY AND GENOMIC MEDICINE Appearance, UA Clear [facility] DEPARTMENT OF PATHOLOGY AND GENOMIC MEDICINE Specific gravity, UA 1.036 (H) 1.001 - 1.030 [facility] DEPARTMENT OF PATHOLOGY AND GENOMIC MEDICINE pH, UA 5.0 5.0 - 9.0 [facility] DEPARTMENT OF PATHOLOGY AND GENOMIC MEDICINE Protein, UA 1+ (A) Negative [facility] DEPARTMENT OF PATHOLOGY AND GENOMIC MEDICINE Glucose, UA Negative Negative [facility] DEPARTMENT OF PATHOLOGY AND GENOMIC MEDICINE Ketones, UA Negative Negative [facility] DEPARTMENT OF PATHOLOGY AND GENOMIC MEDICINE Bilirubin, UA Negative Negative [facility] DEPARTMENT OF PATHOLOGY AND GENOMIC MEDICINE Blood, UA Small (A) Negative [facility] DEPARTMENT OF PATHOLOGY AND GENOMIC MEDICINE Nitrite, UA Negative Negative [facility] DEPARTMENT OF PATHOLOGY AND GENOMIC MEDICINE Urobilinogen, UA <2.0 <2.0 E.U./dL [facility] DEPARTMENT OF PATHOLOGY AND GENOMIC MEDICINE Leukocyte esterase, UA Negative Negative [facility] DEPARTMENT OF PATHOLOGY AND GENOMIC MEDICINE Epithelial cells, UA <1 /HPF [facility] DEPARTMENT OF PATHOLOGY AND GENOMIC MEDICINE WBC, UA 1 0 - 4 /HPF [facility] DEPARTMENT OF PATHOLOGY AND GENOMIC MEDICINE RBC, UA 2 0 - 5 /HPF [facility] DEPARTMENT OF PATHOLOGY AND GENOMIC MEDICINE Bacteria, UA Few None seen [facility] DEPARTMENT OF PATHOLOGY AND GENOMIC MEDICINE Yeast, UA Moderate (A) [facility] DEPARTMENT OF PATHOLOGY AND GENOMIC MEDICINE Yeast with pseudohyphae, None seen [facility] DEPARTMENT OF UA PATHOLOGY AND GENOMIC MEDICINE Specimen Urine Performing Organization Address City/State/Zipcode Phone Number [facility] [place] [address] [place] [address] PATHOLOGY AND GENOMIC MEDICINE * Gram stain (02/10/2018 11:04 PM CDT) Gram stain result No WBC's or organisms seen. [facility] DEPARTMENT OF Comment: PATHOLOGY AND Specimen Information GENOMIC MEDICINE Specimen Source: Urine Specimen Site: Clean catch Specimen Urine Performing Organization Address City/State/Zipcode Phone Number [facility] DEPARTMENT OF [address] [place] [address] PATHOLOGY AND GENOMIC MEDICINE * Urine culture (02/10/2018 11:04 PM CDT) Only the most recent of 2 results within the time period is included. Urine culture isolate Mixed Gram positive ralf [facility] DEPARTMENT OF 10-2 cfu/ml PATHOLOGY AND (A) GENOMIC MEDICINE Comment: Specimen Information Specimen Source: Urine Specimen Site: Clean catch Urine culture isolate Gram negative rods [facility] DEPARTMENT OF <10-1 cfu/ml PATHOLOGY AND (A) GENOMIC MEDICINE Specimen Urine Performing Organization Address City/State/Zipcode Phone Number [facility] DEPARTMENT OF [address] [place] [address] PATHOLOGY AND GENOMIC MEDICINE * CRITICAL CARE [...] CDT) PTT 25.0 23.0 - 36.0 sec [facility] DEPARTMENT OF Comment: PATHOLOGY AND PTT therapeutic range for [facility] MEDICINE unfractionated heparin is 61.0-112.0 seconds which corresponds to Anti-Xa 0.3-0.7 U/ml. Specimen Blood Performing Organization Address City/State/Zipcode Phone Number [facility] [address] [place] [address] PATHOLOGY AND GENOMIC MEDICINE * Prothrombin time with INR (02/10/2018 9:17 PM CDT) Prothrombin time 13.1 12.0 - 15.0 sec [facility] DEPARTMENT OF PATHOLOGY AND GENOMIC MEDICINE INR 1.0 [facility] DEPARTMENT OF Comment: PATHOLOGY AND The International Normalized GENOMIC MEDICINE Ratio (INR) is a therapeutic monitoring tool for patients who are stable on oral anticoagulant therapy. An INR of 2.0-3.0 is suggested for deep vein thrombosis/pulmonary embolism. Specimen Blood Performing Organization Address City/[facility]/Zipcode Phone Number [facility] [address] [facility] [place] [address] PATHOLOGY AND GENOMIC MEDICINE * Creatine kinase, total (CPK) (02/10/2018 9:17 PM CDT) Only the most recent of 2 results within the time period is included. Creatine kinase 135 26 - 192 U/L [facility] DEPARTMENT OF PATHOLOGY AND GENOMIC MEDICINE Specimen Plasma specimen Performing Organization Address City/[facility] Phone Number [facility] [address] [place] [address] PATHOLOGY AND [employer] MEDICINE * PV Duplex Venous Lower Extremity [...] of the visualized left lower extremity veins. [facility]-[id number] Procedure Note Interface, Radiology Results Incoming - [...] of the visualized left lower extremity veins. [facility]-[id number] Performing Organization Address City/[facility]/Zipcode Phone Number [facility] [address] [place] [address] * XR Knee 3 Vw Left (11/25/2017 11:34 PM CDT) Narrative Performed At EXAMINATION:XR KNEE 3 VW LEFT RADIANT CLINICAL HISTORY:joint pain COMPARISON:None. IMPRESSION: No evidence of acute left knee fracture, dislocation, or significant joint effusion. Bone mineralization is decreased. Soft tissues are unremarkable. [facility]-[id number] Procedure Note Interface, Radiology Results Incoming - 11/25/2017 11:39 PM CDT EXAMINATION: XR KNEE 3 VW LEFT CLINICAL HISTORY: joint pain COMPARISON: None. IMPRESSION: No evidence of acute left knee fracture, dislocation, or significant joint effusion. Bone mineralization is decreased. Soft tissues are unremarkable. [facility]-[id number] Performing Organization Address [facility] Cent[facility]ode Phone Number [facility] [address] [place] [address] * Basic metabolic panel (10/30/2017 3:37 AM CDT) Sodium 139 135 - 148 mEq/L [facility] DEPARTMENT OF PATHOLOGY AND GENOMIC MEDICINE Potassium 4.5 3.5 - 5.0 mEq/L [facility] DEPARTMENT OF PATHOLOGY AND GENOMIC MEDICINE Chloride 99 98 - 112 mEq/L [facility] DEPARTMENT OF PATHOLOGY AND GENOMIC MEDICINE CO2 28 24 - 31 mEq/L [facility] DEPARTMENT OF PATHOLOGY AND GENOMIC MEDICINE Anion gap 12 7 - 15 mEq/L [facility] DEPARTMENT OF Comment: PATHOLOGY AND Starting from October [facility] MEDICINE , anion gap calculation no longer incorporates potassium. Please note the change. BUN 14 6 - 20 mg/dL [facility] DEPARTMENT OF PATHOLOGY AND GENOMIC MEDICINE Creatinine 0.9 0.5 - 0.9 mg/dL [facility] DEPARTMENT OF PATHOLOGY AND GENOMIC MEDICINE Glucose 129 (H) 65 - 99 mg/dL [facility] DEPARTMENT OF PATHOLOGY AND GENOMIC MEDICINE Calcium 9.6 8.3 - 10.2 mg/dL [facility] DEPARTMENT OF PATHOLOGY AND GENOMIC MEDICINE Specimen Plasma specimen Performing Organization Address City/State/Zipcode Phone Number [address] [address] PATHOLOGY AND GENOMIC MEDICINE * Respiratory pathogen panel (10/29/2017 1:30 PM CDT) Respiratory pathogen Positive for Respiratory [facility] DEPARTMENT OF panel Syncytial Virus PATHOLOGY AND [...] Right and left lobes Performing Organization Address [facility] Centercode Phone Number [facility] DEPARTMENT [facility] [place] [phone] PATHOLOGY AND [employer] MEDICINE * Blood culture, aerobic & anaerobic (10/29/2017 1:20 AM CDT) Only the most recent of 2 results within the time period is included. Blood culture isolate No growth after 5 days of [facility] DEPARTMENT OF incubation. PATHOLOGY AND Comment: [employer] MEDICINE Specimen Information Specimen Source: Blood Specimen Site: Antecubital, right Specimen Blood - Antecubital, right Performing Organization Address City/[facility] Centercode Phone Number [facility] DEPARTMENT OF [address] [place] [phone] PATHOLOGY AND [employer] MEDICINE * CT Angiogram Pe Chest (10/29/2017 [...] No acute abnormality identified in the chest. [facility]-[id number] Procedure Note Interface, Radiology Results Incoming - [...] No acute abnormality identified in the chest. [facility]-[id number] Performing Organization Address City/State/Zipcode Phone Number [facility] [address] [place] [address] after 10/11/2017 Insurance Payer Benefit Subscriber ID Type Phone Address Plan / Group [employer] [facility] xxxxxxxxx O [facility] MEDICAID MEDICAID xxxxxxxxx Medicaid Advance Directives Patient has advance care planning documents, and code status on file. For more i nformation, please contact: Mikhail Dickens [address] [place] [address] Date Inactivated Comments Code Status Date Activated 08/29/2018 12:11 AM Full Code 08/28/2018 5:21 AM Code Status decision reached by: Patient 09/27/2017 4:48 PM Full Code 09/27/2017 2:38 AM Code Status decision reached by: Patient 06/27/2017 5:49 PM Full Code 06/27/2017 12:57 AM Code Status decision reached by: Patient
--- OUTSIDE RECORDS SUMMARY | 2018-10-12 13:25 | XMS REPORT | Clinical Summary ---
Author Author [facility] Address Unknown Phone Unavailable Care Team Providers Care Editorial Specialist Name Role Phone Brian Sena PCP Unavailable [...]
[2018-10-12] MEDS: ONDANSETRON HCL INJ 2MG/ML 2ML 2 MG/ML VIAL IV PRN ×2 (13:42→22:18)
[2018-10-12] MEDS: HYDRALAZINE HCL 20 MG/ML VIAL IV PRN ×2 (13:45→14:46)
--- NOTE | 2018-10-12 14:25 | NUR ---
Recvd patient from ER. AAOx3, Assisted her to bed, skin intact, resp even and unlabored, rating pain 6/10 on right sided abdomen, no t in any distress
[2018-10-12 14:29] VITALS: BP 186/100
[2018-10-12 14:37] VITALS: BP 186/120
--- NOTE | 2018-10-12 15:00 | NUR ---
BP-182/100, PRN BP med IV given , Mary SENIOR AUTOMATION ENGINEER notified
[2018-10-12] MEDS ORDERED: HYDROCODONE/APAP 5MG-325MG TAB PO PRN (16:15)
[2018-10-12] MEDS ORDERED: FUROSEMIDE INJ 10 MG/ML 4 ML VIAL IV ONE (16:30)
[2018-10-12] MEDS: FAMOTIDINE 20 MG/2 ML VIAL IV SCH (17:05)
[2018-10-12] MEDS: LOSARTAN POTASSIUM 100 MG TAB PO SCH (17:06)
[2018-10-12] MEDS: HYDROCHLOROTHIAZIDE 25 MG TAB PO SCH (17:06)
[2018-10-12] MEDS ORDERED: SODIUM CHLORIDE 0.9% 50ML 50 ML ONE (18:25)
[2018-10-12] MEDS ORDERED: IOPAMIDOL 370 MG/ML 200 ML INFUS..BTL INJ ONE (18:25)
--- NOTE | 2018-10-12 19:56 | NUR ---
Patients blood pressure is 173/95. patient had received p.o blood pressure meds two hours prior. will continue to monitor patients blood pressure.
[2018-10-12 20:00] VITALS: BP 173/95
--- NOTE | 2018-10-12 20:00 | NUR ---
patient is complaining of hunger and is wondering if she can have something to eat. Surgeon notified. Received order to DC NPO status, and DC Normal saline infusion. states he will be in to see patient tomorrow. Will continue to monitor patient.
[2018-10-12] MEDS: MORPHINE SULFATE INJ 4 MG/ML INJ 1ML IV PRN (22:19)
[2018-10-13] VITALS: BP 146/84
[2018-10-13 03:01] LABS: BASOPHILS % 0.4 % (0.0-1.0); EOSINOPHILS # (AUTO) 0.1 (0.0-0.4); EOSINOPHILS % 1.2 % (0.0-6.0); HEMATOCRIT 33.2 % (34.2-44.1); HEMOGLOBIN 10.8 g/dL (12.0-16.0); LYMPHOCYTES # (AUTO) 2.4 (1.0-3.2); LYMPHOCYTES % 36.4 % (18.0-39.1); MEAN CORPUSCULAR HEMOGLOBIN 27.8 pg (28-32); MEAN CORPUSCULAR HGB CONC 32.5 g/dL (31-35); MEAN CORPUSCULAR VOLUME 85.6 fL (81-99); MONOCYTES # (AUTO) 0.5 (0.2-0.8); MONOCYTES % 7.6 % (4.4-11.3); NEUTROPHILS # (AUTO) 3.6 (2.1-6.9); NEUTROPHILS % 54.1 % (38.7-80.0); PLATELET COUNT 272 x10e3/uL (140-360); RED BLOOD COUNT 3.88 x10e6/uL (3.6-5.1)
[2018-10-13 03:20] LABS: ANION GAP 12.8 mmol/L (8-16); BLOOD UREA NITROGEN 11 mg/dL (7-26); BUN/CREATININE RATIO 10 (6-25); CARBON DIOXIDE 30 mmol/L (22-29); CHLORIDE 100 mmol/L (98-107); CREATININE, SERUM 1.12 mg/dL (0.57-1.11); EST GLOMERULAR FILTRATION RATE > 60 ML/MIN (60-); GLUCOSE 90 mg/dL (74-118); MAGNESIUM 1.9 MG/DL (1.3-2.1); POTASSIUM 3.8 mmol/L (3.5-5.1); SODIUM 139 mmol/L (136-145)
[2018-10-13 03:31] LABS: B-TYPE NATRIURETIC PEPTIDE2 30.1 pg/mL (0-100)
[2018-10-13 03:43] LABS: THYROID STIMULATING HORMONE 5.109 uIU/mL (0.350-4.940)
[2018-10-13 04:00] VITALS: BP 142/81
--- NOTE | 2018-10-13 07:01 | NUR ---
report given to day nurse. patient is resting comfortably in bed. bed is in lowest position and call cruz is within reach.
[2018-10-13 07:30] VITALS: BP 139/95
[2018-10-13] MEDS: FAMOTIDINE 20 MG/2 ML VIAL IV SCH (07:30)
[2018-10-13] MEDS: HYDROCHLOROTHIAZIDE 25 MG TAB PO SCH (08:50)
[2018-10-13] MEDS: LOSARTAN POTASSIUM 100 MG TAB PO SCH (08:50)
[2018-10-13] MEDS: MORPHINE SULFATE INJ 4 MG/ML INJ 1ML IV PRN (08:58)
[2018-10-13] MEDS ORDERED: TYLENOL # 31 EA PO (10:04)
[2018-10-13 11:52] VITALS: BP 179/99
[2018-10-13] MEDS: HYDRALAZINE HCL 20 MG/ML VIAL IV PRN (11:56)
--- NOTE | 2018-10-13 13:26 | Consultation ---
DATE OF CONSULTATION: 10/13/2018 HISTORY OF PRESENT ILLNESS: The patient is a 43-year-old female, who underwent cardiac catheterization about 11 days ago. She developed a retroperitoneal hematoma. She apparently was hospitalized for observation for several days and was found to be stable, was discharged home. However, she came back to the hospital with complaints of pain in the right lower quadrant, right groin area. CT of the abdomen and pelvis done at that time revealed a hematoma in the retroperitoneum on the right side. She denies nausea, vomiting. She has not had any fever. She has been able to walk, but with somewhat difficulty because of pain. PAST MEDICAL HISTORY: Significant for hypertension for which she takes medication and also anxiety disorder. MEDICATIONS: Medicines at home were losartan, hydrochlorothiazide as well as Valium. PAST SURGICAL HISTORY: She has had previous cholecystectomy, hysterectomy, tubal ligation. ALLERGIES: SHE HAS ALLERGY TO LISINOPRIL. FAMILY HISTORY: Noncontributory. SOCIAL HISTORY: The patient does not smoke cigarettes or drink alcohol. REVIEW OF SYSTEMS: As stated above. She has had no fever, no weight loss. No nausea or vomiting. PHYSICAL EXAMINATION: GENERAL: The patient is awake and alert. VITAL SIGNS: Normal. Her heart rate is 93. She is afebrile. HEENT: Reveals no scleral icterus. NECK: Has no masses. LUNGS: Equal breath sounds, clear bilaterally. CARDIAC: Regular rate and rhythm with no murmur. ABDOMEN: Soft. There is tenderness in the right groin area. There is no mass. There are no signs of peritonitis. EXTREMITIES: Have no edema. Peripheral pulses were palpable. NEUROLOGIC: Grossly intact. LABORATORY DATA: White blood cell count is normal, initial hemoglobin was 11.2, repeat is 10.8, differential is normal. Chemistries are essentially normal. Coagulation studies were normal and urinalysis was essentially normal. ASSESSMENT: A 43-year-old female with stable retroperitoneal hematoma. There are no signs of active bleeding. No findings that would warrant immediate surgical intervention. I think the patient can be treated symptomatically with pain medication as needed. She was reassured that the hematoma should reabsorb on its own, but it may take some time. There are no findings that warrant surgical intervention at this time. Thank you for asking me to see Ms. Joe. MD RACHNA Amato/CHRISTY /[id number]
[2018-10-13 13:34] VITALS: BP 155/85
--- NOTE | 2018-10-13 13:58 | NUR ---
SOCIAL WORK INITIAL ASSESSMENT Launching Pad Mechanic to bedside to discuss plan of care with patient/family. CM/SW role and care transitions discussed. Anticipated discharge plan discussed along with duration of care. CM/SW discussed patients right to make decisions in care. CM/SW work hours given. Patient lives: AT [facility] Admit/Transfer: ADMIT OBS POA/Emergency contact: BROWN WHARTON [phone] Current/Previous Home Health: NONE PCP/Follow-up Care: IN [facility] BUT WILL GET ONE HERE IN AREA Current/Previous DME: NONE Other Services: NONE Employment Status: DISABLED Areas of Concerns: GAVE RESOURCES FOR COMMUNITY FOR LOCAL PROVIDERS [facility], [facility] AND COMMUNITY RESOURCES FOR WHEN SHE LEAVES THE [facility] Referral Needs: SHE WILL FOLLOW UP WITH CM AT [facility] Education Needs: NONE IMM/GU given and signed (if applicable): NA Goal for discharge: RETURN TO [facility] CM/SW left business card at the bedside with contact information. Name and number was also written on the patients whiteboard. Patient verbalized understanding of discussion. CM will follow-up with ongoing discharge and transition of care needs.
--- NOTE | 2018-10-13 14:05 | NUR ---
patient alert and oriented. Discharge instructions given at this time, patient verbalized understanding. IV discontinued at this time, catheter in tact and small dressing applied. Patient leaving unit via wheelchair to personal auto for patient to drive home.
--- NOTE | 2018-10-13 15:46 | Consultation ---
DATE OF CONSULTATION: 10/12/2018 REASON FOR CONSULTATION: Hematoma status post cardiac catheterization. CONSULTING PHYSICIAN: Dr. Ahumada. HISTORY OF PRESENT ILLNESS: This is a 43-year-old female, who presented with right groin hematoma. She stated she started feeling pain in her right groin and she presented to the emergency room for further evaluation. She lives at a alf. She was at [facility] on October 02 and had a cardiac catheterization that showed normal coronaries due to chest pain. She had a CT abdomen done that showed intrapelvic retroperitoneal hematoma in the right pelvic surrounding the external iliac. She denied any chest pain, any palpitation, any dizziness, any diaphoresis, any headache, nausea, or vomiting. EKG showed normal sinus rhythm with no ST abnormalities. PAST MEDICAL HISTORY: Hypertension, obesity, anxiety, and hyperlipidemia. PAST SURGICAL HISTORY: Cholecystectomy, hysterectomy, bilateral tubal ligation, and recent cardiac catheterization on 10/02/2018. FAMILY HISTORY: Noncontributory. SOCIAL HISTORY: She lives at a alf. MEDICATIONS: She was on losartan with hydrochlorothiazide. ALLERGIES: SHE IS ALLERGIC TO LISINOPRIL. REVIEW OF SYSTEMS: Negative except those mentioned above. PHYSICAL EXAMINATION: VITAL SIGNS: Temperature 97, heart rate 93, blood pressure 142/81, respiration 18, oxygen saturation 100% on room air. GENERAL: She is awake, alert, and oriented x3, but complaining of pain to the right groin. HEENT: Mucous membranes moist. NECK: Supple. LUNGS: Bilaterally clear to auscultation. CARDIOVASCULAR: S1, S2 present. ABDOMEN: Soft. NEUROLOGICAL: Intact. EXTREMITIES: With no edema. LABORATORY DATA: Sodium 139, potassium 3.8, chloride 100, CO2 30, BUN 11, creatinine 1.12, glucose 90. White blood cell 6.71, hemoglobin 10.8, hematocrit 33.2, platelets 272. PT 12.6, PTT 26.9, INR 0.90. IMPRESSION: 1. Pain due to right groin hematoma. 2. Hypertension. 3. Hyperlipidemia. 4. History of anxiety. ASSESSMENT AND PLAN: 1. She is status post cardiac catheterization on 10/02/2018 at [facility] that showed normal coronaries. 2. CT showing some hematoma. We will go ahead and monitor. 3. Surgical intervention was consulted. 4. She had a recent echocardiogram that showed normal systolic function and EF 60% to 65%. 5. We will continue her home medications. Further cardiac workup pending clinical course. Thank you for this consultation. Dictated by Jodi Carpio, JOHN MD GEO Soria/CHRISTY /[id number]
--- NOTE | 2018-10-14 18:28 | Discharge Summary ---
ADMISSION DIAGNOSES: Retroperitoneal hematoma, status post heart catheterization, hypertension, anxiety, morbid obesity. DISCHARGE DIAGNOSES: Retroperitoneal hematoma, status post heart catheterization, hypertension, anxiety, morbid obesity. HISTORY: Hypertension, anxiety. SURGICAL HISTORY: Cholecystectomy, hysterectomy, and bilateral carpal tunnel release. FAMILY HISTORY: Noncontributory. SOCIAL HISTORY: The patient admits to occasional alcohol use. HOSPITAL COURSE: A 43-year-old female complains of right lower quadrant abdominal pain, status post heart catheterization on 10/02/2018 at [facility]. She was discharged the following day, but says she still had some pain. On 10/06/2018, the pain worsened, so she went to [facility]. They discharged her the next day as well with Tylenol No. 3. The pain was not well controlled, so she came back to the ER because she was worried something was worse. On admission, both Surgery and Cardiology were consulted. Chest x-ray showed eventration of the right diaphragm with overlying atelectasis. CT of the abdomen showed intrapelvic retroperitoneal hematoma and external iliac vessels, tiny right intrarenal calculi. The patient was seen by Cardiology and Surgery and discharged her by both services. Vital signs were stable. The patient was afebrile. The patient was discharged home and follow up with primary care in 1 to 2 weeks. The patient understands discharge instructions and agrees to plan. Dictated by Mary Taylor NP MD BEVERLY Macario/CHRISTY /[id number]
== END 2018-10-13 14:08 | disposition home or self-care (01) ==
LOC: ER 09:47 → ERHOLD 12:46 → IMCU 14:23
PROVIDERS: ADMIT Internal Medicine; ATTEND Internal Medicine
DX: I97.630 Postprocedural hematoma of a circulatory system organ or structure following a cardiac catheterization (principal); I10 Essential (primary) hypertension; E66.01 Morbid (severe) obesity due to excess calories; Z68.42 Body mass index [BMI] 45.0-49.9, adult; F41.9 Anxiety disorder, unspecified; E78.5 Hyperlipidemia, unspecified
CPT/HCPCS: 36415 ×2; 71045; 74177; 80048; 80053; 81001; 82550; 82553; 83036; 83735 ×2; 83880; 84439; 84443; 84484; 85025 ×2; 85610; 85730; 87086; 93005; 99284; G0378 ×2; J0360 ×2; J1940; J2270 ×2; J2405; J7030; Q9967

== ENCOUNTER 2018-11-17 21:29 | Emergency (ER) | payer OTHER ==
[~2018-11-17] VITALS: Ht 175.3 cm; Wt 141.5 kg
[~2018-11-17 21:29] MED LIST: DIAZEPAM5 MG PO; LOSARTAN-HCTZ1 EAC1 PO; TYLENOL # 31 EA PO
--- OUTSIDE RECORDS SUMMARY | 2018-11-17 21:32 | XMS REPORT | Clinical Summary ---
Author Author [facility] Organization [facility] Address Unknown Phone Unavailable Care Team Providers Care Wide Area Network Administrator Name Role Phone Jaida Torres MD PCP [...] by mouth 2 (two) times a day. 08/28/2018 Discontinued clonIDINE (CATAPRES) 0.1 Take one [...] of breath for up to 30 days. 12/03/2017 ondansetron ODT (ZOFRAN Take 1 tablet 12 tablet 0 ODT) 4 MG disintegrating (4 mg total) 8 tablet by mouth every 8 (eight) hours as needed for nausea or vomiting for up to 7 days. Active Problems Problem Noted Date Accelerated hypertension 02/10/2018 Colitis 02/10/2018 Overview: Added automatically from request for surgery [id number] Chest pain 10/29/2017 Flank pain 09/26/2017 Hypertensive urgency 06/26/2017 Encounters Care Team Description Date Type Specialty Erik Zimmerman MD 08/29/2018 Hospital Radiology Encounter Erik Zimmerman MD 08/29/2018 Hospital Radiology Encounter Dena Scales RN 08/29/2018 Orders Only Radiology Isaac Kenney MD Joglekar, Samir P., MD Chest pain, unspecified type (Primary Dx); Uncontrolled hypertension 08/27/2018 Emergency General Internal Medicine - 08/28/2018 Herberth Messina MD Lakhva, Asma, MD Hypertensive urgency (Primary Dx); Abdominal pain, [...] of left knee 11/26/2017 Emergency Emergency Medicine after 11/16/2017 Family History Medical History Relation Name Comments [...] Taken Vital Sign Reading 08/28/2018 3:07 PM [facility] Blood Pressure 134/70 08/28/2018 3:07 PM [facility] Pulse 89 08/28/2018 3:07 PM [facility] Temperature 36.9 C (98.5 F) 08/28/2018 3:07 PM [facility]ER Respiratory Rate 15 08/28/2018 3:07 PM [facility]ATHER Oxygen Saturation 100% - Inhaled Oxygen - Concentration 08/28/2018 5:15 AM [facility]ER Weight 142 kg (312 lb) 08/28/2018 5:15 AM [facility]ER Height 175.3 cm (5' 9") 08/28/2018 5:15 AM [facility]ER Body Mass Index 46.07 Plan of Treatment Health Maintenance Due Date Last Done Comments CERVICAL CANCER SCREENING 1995 INFLUENZA VACCINE 02/26/2019 Procedures Comments Procedure Name Priority Date/Time Associated Diagnosis NM MYOCARDIAL PERFUSION Routine 08/29/2018 STRESS REST 2 DAY 12:20 PM [facility] CV STRESS TEST NUCLEAR Routine 08/29/2018 CARDIO 12:20 PM [facility] ECG 12-LEAD STAT 08/28/2018 12:29 PM [facility]ER TROPONIN Timed 08/28/2018 10:10 AM [facility]ER US RENAL STAT 08/28/2018 7:00 AM [facility]ER HEMOGLOBIN A1C Routine 08/28/2018 4:02 AM [facility]ER LIPID PANEL Routine 08/28/2018 4:02 AM [facility]ER TROPONIN Timed 08/28/2018 4:02 AM [facility]ER ESTIMATED GFR Routine 08/28/2018 4:02 AM [facility]ER MAGNESIUM LEVEL Routine 08/28/2018 4:02 AM [facility]ER IONIZED CALCIUM Routine 08/28/2018 4:02 AM [facility]ER PHOSPHORUS LEVEL Routine 08/28/2018 4:02 AM [facility] COMPREHENSIVE METABOLIC Routine 08/28/2018 PANEL 4:02 AM [facility]ER HC COMPLETE BLD COUNT Routine 08/28/2018 W/AUTO DIFF 4:02 AM [facility] XR CHEST 2 VW STAT 08/28/2018 1:01 AM [facility]ER HCG QUALITATIVE, SERUM STAT 08/28/2018 SCREEN 12:26 AM [facility]ER ECG ED PRELIMINARY Routine 08/28/2018 INTERPRETATION 12:08 AM [facility] D-DIMER STAT 08/27/2018 10:31 PM [facility]ER ESTIMATED GFR STAT 08/27/2018 10:31 PM [facility] B NATRIURETIC PEPTIDE STAT 08/27/2018 10:31 PM [facility]ER TROPONIN STAT 08/27/2018 10:31 PM [facility] COMPREHENSIVE METABOLIC STAT 08/27/2018 PANEL 10:31 PM [facility] HC COMPLETE BLD COUNT STAT 08/27/2018 W/AUTO DIFF 10:31 PM [facility]ER ECG 12-LEAD STAT 08/27/2018 10:05 PM [facility] ECHOCARDIOGRAM 2D Routine 06/09/2018 COMPLETE W MMODE SPECTRAL 11:40 AM [facility]ATHER COLOR DOPPLER ([id number]) ESTIMATED GFR Routine 06/09/2018 6:30 AM [facility]ER HEMOGLOBIN A1C Routine 06/09/2018 6:30 AM [facility]ER THYROID STIMULATING Routine 06/09/2018 HORMONE 6:30 AM [facility] LIPID PANEL Routine 06/09/2018 6:30 AM [facility] COMPREHENSIVE METABOLIC Routine 06/09/2018 PANEL 6:30 AM [facility] HC COMPLETE BLD COUNT Routine 06/09/2018 W/AUTO DIFF 6:30 AM [facility]ER TROPONIN Timed 06/08/2018 11:00 PM [facility]ER GASTROINTESTINAL PANEL Routine 06/08/2018 3:[address] ABDOMEN PELVIS W STAT 06/08/2018 CONTRAST 2:23 PM [facility]ATHER ESTIMATED GFR STAT 06/08/2018 1:09 PM [facility]ATHER TROPONIN Routine 06/08/2018 1:09 PM [facility]ER LIPASE LEVEL STAT 06/08/2018 1:09 PM [facility]ER COMPREHENSIVE METABOLIC STAT 06/08/2018 PANEL 1:09 PM [facility]ER HC COMPLETE BLD COUNT STAT 06/08/2018 W/AUTO DIFF 1:09 PM [facility]ER ECG 12-LEAD STAT 06/08/2018 12:58 PM [facility]ATHER XR CHEST 1 VW PORTABLE STAT 06/08/2018 12:58 PM [facility]ATHER ECG ED PRELIMINARY Routine 06/08/2018 INTERPRETATION 12:36 PM [facility]ATHER ZZESTIMATED GFR Routine 02/13/2018 5:05 AM CDT [...] PRELIMINARY Routine 02/10/2018 INTERPRETATION 9:46 PM CDT [facility] CRITICAL CARE, E/M Routine 02/10/2018 30-74 MINUTES [...] URINE CULTURE Routine 11/25/2017 10:40 PM CDT after 11/16/2017 Results * Cv stress test (08/29/2018 12:20 PM SPR[facility]ATHER) Resting HR 94 [facility] Resting BP 168 [facility] Peak MET Achieved 4.8 [facility] Protocol Name New Bart [facility] MUSE Time in Exercise Phase 00:04:31 [facility] Max Systolic BP 233 [facility] Max Diastolic BP 113 [facility] Max Heart Rate 162 [facility] Max Predicted Heart Rate 176 [facility] Target HR Formula (220 - Age)*85% H MUSE Test Indication ANGINA [facility] MUSE Stress Test Impression Waveform interpreted in report [facility] MUSE associated with image study. No interpretation is provided as part of this Stress ECG report.-- Target HR 176.00 bpm [facility]USE Narrative Performed At Performing Organization Address City/[facility] HospitalWedo Shoppingme Phone Number [facility] [address] [place] [address] * Nm myocardial perfusion (08/29/2018 12:20 PM SPR[facility] LEATHER) Resting HR 94 BPM [facility] Resting BP 168/98 mmHg [facility] Post Peak HR 162 bpm [facility] Percent HR 92.05 % [facility] Post Peak BP 233/113 mmHg [facility] Target HR 176.00 bpm [facility] Exercise duration (min) 4 min [facility] Exercise duration (sec) 31 sec [facility] Narrative Performed At [facility] This study result indicates a low risk of cardiac , or nonfatal infarction, over the ensuing year. Probably normal myocardial perfusion imaging. There is a fixed, medium sized moderate anterior wall defect with normal wall motion. This likely represents breast attenuation artifact. Scar can not be excluded. No ischemia is seen. EF 42% Performing Organization Address City/[facility]ppingme Phone Number [facility] [address] [place] [address] * ECG 12 lead (08/28/2018 12:29 PM SPR[facility]ER LEATHER) Only the most recent of 4 results within the time period is included. Ventricular rate 93 [facility] Atrial rate 93 [facility] NV interval 174 [facility] QRSD interval 90 [facility] QT interval 356 [facility] QTC interval 442 [facility] P axis 1 60 [facility] QRS axis 1 29 [facility] T wave axis 72 [facility] EKG impression Normal sinus [facility] MUSE rhythm-Nonspecific T wave abnormality-Abnormal ECG-In automated comparison with ECG of 27-AUG-2018 22:05,-Nonspecific T wave abnormality now evident in Lateral leads- Narrative Performed At Performing Organization Address City/[facility] Hospitalcome Phone Number [facility] [address] [place] [address] * Troponin (08/28/2018 10:10 AM SPR[facility]ER LEATHER) Only the most recent of 7 results within the time period is included. Troponin <0.30 0.00 - 0.30 ng/mL [facility] Comment: [facility] 0.11 - 1.49 ng/mlMay indicate increased risk of acute coronary syndrome. >=1.5 ng/ml Consistent with acute myocardial infarction. The diagnostic value of a single normal or non-diagnostic result is questionable.Serial samples at 2-6 hour intervals are required to rule out acute myocardial injury. Specimen Plasma specimen Performing Organization Address City/[facility] Hospitalcode Phone Number [facility] [place] [address] [place] [address] PATHOLOGY AND GENOMIC MEDICINE [facility] [address] * US Renal (08/28/2018 7:00 AM SPR[facility]ER LEATHER) Narrative Performed At EXAMINATION:US RENAL [facility] CLINICAL HISTORY:Renal failureacute (kidney injury) COMPARISON:CT from 06/08/2018. IMPRESSION: 1.There is no hydronephrosis. 2.Renal cortical echogenicity is within normal limits. 3.Right kidney measures 12.5 x 5 x 5.3 cm. Subcentimeter hypodense lesions noted on prior CT are not identified ultrasound. 4.Left kidney measures 4.6 x 5.1 x 5.6 cm. 5.Bladder is unremarkable. [facility]-[id number] Procedure Note Hm Interface, Radiology Results Incoming - 08/28/2018 7:35 AM [facility]ATHER EXAMINATION: US RENAL CLINICAL HISTORY: Renal failure acute (kidney injury) COMPARISON: CT from 06/08/2018. IMPRESSION: 1. There is no hydronephrosis. 2. Renal cortical echogenicity is within normal limits. 3. Right kidney measures 12.5 x 5 x 5.3 cm. Subcentimeter hypodense lesions noted on prior CT are not identified ultrasound. 4. Left kidney measures 4.6 x 5.1 x 5.6 cm. 5. Bladder is unremarkable. [facility]-[id number] Performing Organization Address City/[facility]/Zipcode Phone Number [facility] [address] [place] [address] * Estimated GFR (08/28/2018 4:02 AM SPR[facility]ER LEATHER) Only the most recent of 4 results within the time period is included. Estimated GFR 75 mL/min/1.73 m2 [facility] Comment: [facility] CatergoryUnitsInte rpretation G1 >=90 Normal or high G2 60-89Mildly decreased [id number] Mildly to moderately decreased [id number] Moderately to severely decreased G4 15-29Severely decreased G5 <15Kidney failure The eGFR was calculated using the Chronic Kidney Disease Epidemiology Collaboration (CKD-EPI) equation. Interpretation is based on recommendations of the National Kidney Foundation-Kidney Disease Outcomes Quality Initiative (NKF-KDOQI) published in 2014. Specimen Plasma specimen Performing Organization Address City/[facility]/Zipcode Phone Number [facility] [place] [address] [place] [address] PATHOLOGY AND GENOMIC MEDICINE [facility] [address] * CBC with platelet and differential (08/28/2018 4:02 AM SPRAYER LEATHER) Only the most recent of 9 results within the time period is included. WBC 7.0 4.5 - 11.0 k/uL [facility] RBC 4.26 4.20 - 5.50 m/uL [facility] HGB 11.6 (L) 12.0 - 16.0 g/dL [facility] HCT 37.3 37.0 - 47.0 % [facility] MCV 87.6 82.0 - 100.0 fL [facility] MCH 27.2 27.0 - 34.0 pg [facility] MCHC 31.1 31.0 - 37.0 g/dL [facility] RDW - SD 48.6 37.0 - 55.0 fL [facility] MPV 12.0 (H) 6.9 - 11.0 fL [facility] Platelet count 195 150 - 400 K/uL [facility] Nucleated RBC 0.00 /100 WBC [facility] Neutrophils 47.5 39.0 - 69.0 % [facility] Lymphocytes 43.2 25.0 - 45.0 % [facility] Monocytes 7.7 0.0 - 10.0 % [facility] Eosinophils 0.9 0.0 - 5.0 % [facility] Basophils 0.6 0.0 - 1.0 % [facility] Immature granulocytes 0.1 0.0 - 1.0 % [facility] Specimen Blood Performing Organization Address [facility] Hospitalcome Phone Number [facility] [place] [address] PATHOLOGY AND GENOMIC MEDICINE [address] * Phosphorus level (08/28/2018 4:02 AM SPRAYER LEATHER) Only the most recent of 4 results within the time period is included. Phosphorus 3.8 2.4 - 4.5 mg/dL [facility] Specimen Plasma specimen Performing Organization Address City/[facility] Hospitalcode Phone Number [facility] DEPARTMENT OF [address] [place] [address] PATHOLOGY AND GENOMIC MEDICINE [address] * Magnesium level (08/28/2018 4:02 AM SPR[facility]ER LEATHER) Only the most recent of 4 results within the time period is included. Magnesium 1.7 1.6 - 2.6 mg/dL [facility] Specimen Plasma specimen Performing Organization Address City/[facility] Phone Number [facility] [id number] [place] [address] PATHOLOGY AND GENOMIC MEDICINE [address] * Hemoglobin A1c (08/28/2018 4:02 AM SPRAYER LEATHER) Only the most recent of 2 results within the time period is included. Hemoglobin A1C 5.0 4.0 - 6.0 % [facility] Comment: [facility] Less than 6% - Goal of therapy for Type II Diabetes Less than 7%-Goal of therapy for Type I Diabetes Less than 8%-Accepta ble control for Type I or Type II Diabetes Greater than 8%-Unacceptabl e control; action indicated. ([id number]) Performing Organization Address City/[facility]/[place] [address] PATHOLOGY AND [facility] MEDICINE [address] * Ionized calcium (08/28/2018 4:02 AM SPRAYER LEATHER) Only the most recent of 5 results within the time period is included. pH 7.38 [facility] Ionized calcium 1.10 (L) 1.11 - 1.32 mmol/L [facility] Specimen Plasma specimen Performing Organization Address City/[facility]/[place] [address] PATHOLOGY AND GENOMIC MEDICINE [address] * Lipid panel (08/28/2018 4:02 AM SPR[facility]ER LEATHER) Only the most recent of 2 results within the time period is included. Cholesterol 145 0 - 199 mg/dL [facility] Triglycerides 93 0 - 149 mg/dL [facility] HDL cholesterol 39 (L) 40 - 99,999 mg/dL [facility] LDL cholesterol 101 (H) 0 - 99 mg/dL [facility] Lipid panel See below [facility] interpretation Comment: [facility] Total Cholesterol (mg/dL) <200 Desirable [...] mg/dL) Specimen Plasma specimen Performing Organization Address City/State/Zipcode Phone Number [facility] [place] [address] [place] [address] PATHOLOGY AND GENOMIC MEDICINE [facility] [address] * Comprehensive metabolic panel (08/28/2018 4:02 AM SPR[facility]ER LEATHER) Only the most recent of 9 results within the time period is included. Sodium 139 135 - 148 mEq/L [facility] Potassium 4.2 3.5 - 5.0 mEq/L [facility] Chloride 101 98 - 112 mEq/L [facility] CO2 28 24 - 31 mEq/L [facility] Anion gap 10@ANIO 7 - 15 mEq/L [facility] BUN 15 6 - 20 mg/dL [facility] Creatinine 1.05 (H) 0.50 - 0.90 mg/dL [facility] Glucose 104 (H) 65 - 99 mg/dL [facility] Calcium 9.0 8.3 - 10.2 mg/dL [facility] Protein 7.0 6.3 - 8.3 g/dL [facility] Albumin 3.7 3.5 - 5.0 g/dL [facility] A/G ratio 1.1 0.7 - 3.8 [facility] Alkaline phosphatase 74 35 - 104 U/L [facility] AST 22 10 - 35 U/L [facility] ALT 23 5 - 50 U/L [facility] Total bilirubin 0.3 0.2 - 1.2 mg/dL [facility] Specimen Plasma specimen Performing Organization Address City/[facility]code Phone Number [facility] [place] [id number] [place] [address] PATHOLOGY AND GENOMIC MEDICINE [address] * XR Chest 2 Vw (08/28/2018 1:01 AM SPRAYER LEATHER) Narrative Performed At EXAMINATION: XR CHEST 2 VW [facility] CLINICAL HISTORY: Chest pain COMPARISON:06/08/2018 chest x-ray. IMPRESSION: The lungs are clear. No pleural effusion or pneumothorax. The cardiomediastinal silhouette is normal. No acute osseous abnormalities. [id number] Procedure Note Hm Interface, Radiology Results Incoming - 08/28/2018 1:11 AM [facility] LEATHER EXAMINATION: XR CHEST 2 VW CLINICAL HISTORY: Chest pain COMPARISON: 06/08/2018 chest x-ray. IMPRESSION: The lungs are clear. No pleural effusion or pneumothorax. The cardiomediastinal silhouette is normal. No acute osseous abnormalities. [id number] Performing Organization Address [facility] Phone Number [facility] [address] [place] [address] * hCG qualitative, serum screen (08/28/2018 12:26 AM SPRAYER LEATHER) hCG qualitative, serum NegativeComment: Sensitivity [facility] of HCG test: 25 mIU/mL [facility] Specimen Blood Performing Organization Address City/[facility]/Zipcode Phone Number [facility] [place] [id number] [place] [address] PATHOLOGY AND GENOMIC MEDICINE [address] * ECG ED Preliminary Interpretation - Not an Order (08/28/2018 12:08 AM SPRAYER LEATHER) Only the most recent of 3 results within the time period is included. Narrative Performed At Isaac Kenney MD 08/28/20187:06 PM ECG ED Preliminary Interpretation - Not an Order Performed by: Isaac Kenney MD Authorized by: Isaac Kenney MD ECG reviewed by ED Physician in the absence of a veterinary poultry inspector: yes Interpretation: Interpretation: normal Rate: ECG rate:112 ECG rate assessment: tachycardic Rhythm: Rhythm: sinus rhythm Ectopy: Ectopy: none QRS: QRS axis:Normal QRS intervals:Normal Conduction: Conduction: normal ST segments: ST segments:Normal T waves: T waves: normal * D-dimer (08/27/2018 10:31 PM SPRAYER LEATHER) D-dimer 0.36 0.00 - 0.40 ug/mL [facility] Comment: [facility] Units are ug/ml Fibrinogen Equivalent [...] and malignancies. Specimen Blood Performing Organization Address [facility] [place] [address] PATHOLOGY [address] * B natriuretic peptide (08/27/2018 10:31 PM SPR[facility]ER LEATHER) Only the most recent of 2 results within the time period is included. BNP 19 0 - 100 pg/mL [facility] Specimen Blood Performing Organization Address [facility]/[place] Number [place] [address] PATHOLOGY AND [facility] MEDICINE [address] * Echocardiogram complete w contrast and 3D if needed (06/09/2018 11:40 AM SPRAYER LEATHER) AoV Area, Vmax 3.20 cm2 [facility] [...] [facility] LVOT Vmn 0.56 [facility] NV End Cardenas Grad 2.57 [facility] NV End Diat Pancho 0.80 [facility] Aov [...] significant Valvular heart disease Performing Organization Address City/[facility]/Zipcode Phone Number [facility] [address] [place] [address] * Thyroid stimulating hormone (06/09/2018 6:30 AM SPRAYER LEATHER) TSH 2.60 0.27 - 4.20 uIU/mL [facility] Specimen Plasma specimen Performing Organization Address City/State/Zipcode Phone Number [facility] [place] [address] [place] [address] PATHOLOGY AND GENOMIC MEDICINE [facility] [id number] [place] [address] * Gastrointestinal panel (06/08/2018 3:00 PM SPRAYER LEATHER) Gastrointestinal panel Positive for Sapovirus [facility] Negative for all other pathogens tested: [...] Specimen Stool - Nonpreserved Performing Organization Address City/State/Zipcode Phone Number [facility] DEPARTMENT OF [address] [place] [address] PATHOLOGY AND GENOMIC MEDICINE [facility] [address] [place] [address] H[address] * CT Abdomen Pelvis W Contrast (06/08/2018 2:23 PM SPRAYER LEATHER) Only the most recent of 3 results [...] acute abnormality in the abdomen and pelvis. [facility]-[id number] Procedure Note Interface, Radiology Results Incoming - 06/08/2018 2:43 PM [facility]ER EXAMINATION: CT ABDOMEN PELVIS W CONTRAST CLINICAL [...] acute abnormality in the abdomen and pelvis. [id number] Performing Organization Address City/[facility]/Zipcode Phone Number [facility] [address] [place] [address] * Lipase level (06/08/2018 1:09 PM SPRAYER LEATHER) Only the most recent of 3 results within the time period is included. Lipase 48 13 - 60 U/L [facility] Specimen Plasma specimen Performing Organization Address City/State/Zipcode Phone Number [facility] [place] [address] [place] [address] PATHOLOGY AND GENOMIC MEDICINE [facility] [address] * XR Chest 1 Vw Portable (06/08/2018 12:58 PM SPRAYER LEATHER) Only the most recent of 2 results within the time period is included. Narrative Performed At Examination: XR CHEST 1 VW PORTABLE [facility] Clinical history: hypertension Comparison: February 10, 2018 Impression: 1. The heart and pulmonary vasculature are within normal limits. 2. No infiltrate or effusion is demonstrated. 3. There is no acute osseous pathology. CONCLUSION: NO RADIOGRAPHIC EVIDENCE OF ACUTE CARDIOPULMONARY ABNORMALITY. [id number] Procedure Note Hm Interface, Radiology Results Incoming - 06/08/2018 1:08 PM [facility]ER Examination: XR CHEST 1 VW PORTABLE Clinical history: hypertension Comparison: February 10, 2018 Impression: 1. The heart and pulmonary vasculature are within normal limits. 2. No infiltrate or effusion is demonstrated. 3. There is no acute osseous pathology. CONCLUSION: NO RADIOGRAPHIC EVIDENCE OF ACUTE CARDIOPULMONARY ABNORMALITY. [id number] Performing Organization Address City/State/Zipcode Phone Number [facility] [address] [place] [address] * Estimated GFR (02/13/2018 5:05 AM CDT) Only the most recent of 5 results within the time period is included. GFR Non Af Amer 60 mL/min/1.73 m2 [facility] DEPARTMENT OF PATHOLOGY AND GENOMIC MEDICINE GFR Af Amer 73 mL/min/1.73 m2 [facility] DEPARTMENT OF Comment: PATHOLOGY AND [...] Americans. Specimen Plasma specimen Performing Organization Address City/State/Zipcode Phone Number [facility] [address] [place] [address] PATHOLOGY AND GENOMIC MEDICINE * Surgical pathology request (02/12/2018 1:29 PM CDT) [facility] DEPARTMENT OF PATHOLOGY AND GENOMIC MEDICINE Surgical pathology report See link below for PDF Lab [facility] DEPARTMENT OF Report PATHOLOGY AND GENOMIC MEDICINE Result status This is Final Report to [facility] DEPARTMENT OF [id number] PATHOLOGY AND GENOMIC MEDICINE Performing Organization Address City/[facility] Phone Number [facility] DEPARTMENT OF [address] [place] [address]. [place] [address] PATHOLOGY AND GENOMIC MEDICINE * Lactic acid level, SEPSIS - Now and repeat 2x every 3 hours (02/11/2018 3:45 AM CDT) Lactic acid 1.8 0.5 - 2.2 mmol/L [facility] DEPARTMENT OF PATHOLOGY AND GENOMIC MEDICINE Specimen Plasma specimen Performing Organization Address [facility] [place] [address] PATHOLOGY AND GENOMIC MEDICINE * Amylase level (02/11/2018 3:45 AM CDT) Amylase 39 13 - 73 U/L [facility] DEPARTMENT OF PATHOLOGY AND GENOMIC MEDICINE Specimen Plasma specimen Performing Organization Address [facility] Phone Number [facility] [place] [address] PATHOLOGY AND GENOMIC MEDICINE * Urinalysis screen and microscopy, with reflex to culture (02/10/2018 11:04 PM CDT) Only the most recent of 2 results within the time period is included. Specimen site Clean catch [facility] DEPARTMENT OF PATHOLOGY AND GENOMIC MEDICINE Color, UA Yellow [facility] DEPARTMENT OF PATHOLOGY AND GENOMIC MEDICINE Appearance, UA Clear [facility] DEPARTMENT OF PATHOLOGY AND GENOMIC MEDICINE Specific gravity, UA 1.036 (H) 1.001 - 1.030 [facility] DEPARTMENT OF PATHOLOGY AND GENOMIC MEDICINE pH, UA 5.0 5.0 - 9.0 [facility] DEPARTMENT OF PATHOLOGY AND GENOMIC MEDICINE Protein, UA 1+ (A) Negative [facility] DEPARTMENT OF PATHOLOGY AND GENOMIC MEDICINE Glucose, UA Negative Negative [facility] DEPARTMENT OF PATHOLOGY AND GENOMIC MEDICINE Ketones, UA Negative Negative [facility] DEPARTMENT OF PATHOLOGY AND GENOMIC MEDICINE Bilirubin, UA Negative Negative [facility] DEPARTMENT OF PATHOLOGY AND GENOMIC MEDICINE Blood, UA Small (A) Negative [facility] DEPARTMENT OF PATHOLOGY AND GENOMIC MEDICINE Nitrite, UA Negative Negative [facility] DEPARTMENT OF PATHOLOGY AND GENOMIC MEDICINE Urobilinogen, UA <2.0 <2.0 E.U./dL [facility] DEPARTMENT OF PATHOLOGY AND GENOMIC MEDICINE Leukocyte esterase, UA Negative Negative [facility] DEPARTMENT OF PATHOLOGY AND GENOMIC MEDICINE Epithelial cells, UA <1 /HPF [facility] DEPARTMENT OF PATHOLOGY AND GENOMIC MEDICINE WBC, UA 1 0 - 4 /HPF [facility] DEPARTMENT OF PATHOLOGY AND GENOMIC MEDICINE RBC, UA 2 0 - 5 /HPF [facility] DEPARTMENT OF PATHOLOGY AND GENOMIC MEDICINE Bacteria, UA Few None seen [facility] DEPARTMENT OF PATHOLOGY AND GENOMIC MEDICINE Yeast, UA Moderate (A) [facility] DEPARTMENT OF PATHOLOGY AND GENOMIC MEDICINE Yeast with pseudohyphae, None seen [facility] DEPARTMENT OF UA PATHOLOGY AND GENOMIC MEDICINE Specimen Urine Performing Organization Address City/State/Zipcode Phone Number [facility] [place] [address] [place] [address] PATHOLOGY AND GENOMIC MEDICINE * Gram stain (02/10/2018 11:04 PM CDT) Gram stain result No WBC's or organisms seen. [facility] DEPARTMENT OF Comment: PATHOLOGY AND Specimen Information GENOMIC MEDICINE Specimen Source: Urine Specimen Site: Clean catch Specimen Urine Performing Organization Address City/State/Zipcode Phone Number [facility] DEPARTMENT OF [address] [place] [id number] PATHOLOGY AND GENOMIC MEDICINE * Urine culture (02/10/2018 11:04 PM CDT) Only the most recent of 2 results within the time period is included. Urine culture isolate Mixed Gram positive ralf [facility] DEPARTMENT OF 10-2 cfu/ml PATHOLOGY AND (A) GENOMIC MEDICINE Comment: Specimen Information Specimen Source: Urine Specimen Site: Clean catch Urine culture isolate Gram negative rods [facility] DEPARTMENT OF <10-1 cfu/ml PATHOLOGY AND (A) GENOMIC MEDICINE Specimen Urine Performing Organization Address City/[facility] Phone Number [facility] DEPARTMENT OF [address] [place] [address] PATHOLOGY AND GENOMIC MEDICINE * CRITICAL CARE [...] CDT) PTT 25.0 23.0 - 36.0 sec [facility] DEPARTMENT OF Comment: PATHOLOGY AND PTT therapeutic range for [facility] MEDICINE unfractionated heparin is 61.0-112.0 seconds which corresponds to Anti-Xa 0.3-0.7 U/ml. Specimen Blood Performing Organization Address [facility] [place] [address] PATHOLOGY AND [employer] [facility] * Prothrombin time with INR (02/10/2018 9:17 PM CDT) Prothrombin time 13.1 12.0 - 15.0 sec [facility] DEPARTMENT OF PATHOLOGY AND [employer] MEDICINE INR 1.0 [facility] DEPARTMENT OF Comment: PATHOLOGY AND The International Normalized [facility] Ratio (INR) is a therapeutic monitoring tool for patients who are stable on oral anticoagulant therapy. An INR of 2.0-3.0 is suggested for deep vein thrombosis/pulmonary embolism. Specimen Blood Performing Organization Address City/[facility] [place] [address] PATHOLOGY AND [employer] [facility] * Creatine kinase, total (CPK) (02/10/2018 9:17 PM CDT) Creatine kinase 135 26 - 192 U/L [facility] DEPARTMENT OF PATHOLOGY AND [employer] MEDICINE Specimen Plasma specimen Performing Organization Address City/[facility] [place] [address] PATHOLOGY AND [employer] [facility] * PV Duplex Venous Lower Extremity (11/26/2017 [...] of the visualized left lower extremity veins. [facility]-[id number] Procedure Note Interface, Radiology Results Incoming - [...] of the visualized left lower extremity veins. [facility]-[id number] Performing Organization Address [facility] Phone Number [facility] [address] [place] [address] * XR Knee 3 Vw Left (11/25/2017 11:34 PM CDT) Narrative Performed At EXAMINATION:XR KNEE 3 VW LEFT RADIANT CLINICAL HISTORY:joint pain COMPARISON:None. IMPRESSION: No evidence of acute left knee fracture, dislocation, or significant joint effusion. Bone mineralization is decreased. Soft tissues are unremarkable. [facility]-[id number] Procedure Note Interface, Radiology Results Incoming - 11/25/2017 11:39 PM CDT EXAMINATION: XR KNEE 3 VW LEFT CLINICAL HISTORY: joint pain COMPARISON: None. IMPRESSION: No evidence of acute left knee fracture, dislocation, or significant joint effusion. Bone mineralization is decreased. Soft tissues are unremarkable. [facility]-[id number] Performing Organization Address City/[facility]/Zipcode Phone Number [place] [address] [place] [address] after 11/16/2017 Insurance Payer Benefit Subscriber ID Type Phone Address Plan / Group [employer] [facility] xxxxxxxxx HMO [facility] MEDICAID MEDICAID xxxxxxxxx Medicaid Advance Directives Patient has advance care planning documents, and code status on file. For more i nformation, please contact: Mikhail Dickens [address] [place] [address] Date Inactivated Comments Code Status Date Activated 08/29/2018 12:11 AM Full Code 08/28/2018 5:21 AM Code Status decision reached by: Patient 09/27/2017 4:48 PM Full Code 09/27/2017 2:38 AM Code Status decision reached by: Patient 06/27/2017 5:49 PM Full Code 06/27/2017 12:57 AM Code Status decision reached by: Patient
--- OUTSIDE RECORDS SUMMARY | 2018-11-17 21:32 | XMS REPORT | Clinical Summary ---
Author Author [facility] Organization [facility] Address Unknown Phone Unavailable Care Team Providers Care Director Cardiovascular Name Role Phone PCP Unavailable Allergies Comments [...] (Primary Dx) 06/22/2018 Emergency Emergency Medicine after 11/16/2017 Immunizations Name Dates Previously Given Next Due [...] Taken Vital Sign Reading 06/22/2018 6:30 AM CONTROL PANEL BUILDER Blood Pressure 174/103 06/22/2018 6:30 AM CONTROL PANEL BUILDER Pulse 82 06/22/2018 6:30 AM CONTROL PANEL BUILDER Temperature 36.8 C (98.3 F) 06/22/2018 6:30 AM CONTROL PANEL BUILDER Respiratory Rate 18 06/22/2018 6:30 AM CONTROL PANEL BUILDER Oxygen Saturation 97% - Inhaled Oxygen - Concentration - Weight - - Height - - Body Mass Index - Plan of Treatment Health Maintenance Due Date Last Done Comments Cervical Cancer Scrn (3 1995 Yrs) Breast Cancer Scrn 2014 (Yearly) IMM Influenza Seasonal 04/28/2019Apr to September (>/=19 yrs) Procedures Comments Procedure Name Priority Date/Time Associated Diagnosis UA CHEMISTRIES STAT 06/22/2018 4:30 AM CONTROL PANEL BUILDER POCT URINE DIPSTICK - STAT 06/22/2018 4:29 AM CONTROL PANEL BUILDER TEST STAT 06/22/2018 4:15 AM CONTROL [address]EL [address] CT ABDOMEN AND PELVIS W STAT 06/22/2018 Right lower quadrant CONTRAST - ROUTINE 4:07 AM CONTROL PANEL BUILDER abdominal pain BMP POC Routine 06/22/2018 3:37 AM CONTROL PANEL BUILDER VBG POC Routine 06/22/2018 3:29 AM CONTROL PANEL BUILDER CBC/DIFF STAT 06/22/2018 3:12 AM CONTROL PANEL BUILDER after 11/16/2017 Results * UA CHEMISTRIES (06/22/2018 4:30 AM CONTROL PANEL BUILDER) Color Yellow BT MAIN-STATION 1 Clarity Clear BT MAIN-STATION 1 Spec [place] >1.035 (H) 1.001 - 1.035 BT MAIN-STATION [...] MAIN-STATION 1 Specimen Urine Performing Organization Address City/[facility] Phone Number MISYS BT MAIN-STATION 1 * POCT URINE DIPSTICK - (06/22/2018 4:29 AM CONTROL PANEL BUILDER) present Control not present * TEST (06/22/2018 4:15 AM CONTROL PANEL BUILDER) Negative BT MAIN-STATION 1 Specimen Urine Performing Organization Address City/[facility] Phone Number [facility] BT MAIN-STATION 1 * CT ABDOMEN AND PELVIS W CONTRAST - ROUTINE (06/22/2018 4:07 AM CONTROL PANEL BUILDER) Impressions Performed At IMPRESSION: SMS No acute [...] Interface, Rad/Mammog In - 06/22/2018 5:06 AM CONTROL PANEL BUILDER EXAM: CT Abdomen and Pelvis WITH contrast [...] SMS * BMP POC (06/22/2018 3:37 AM CONTROL PANEL BUILDER) CO2 POC 29 21 - 32 mmol/L [...] Afr-Am 1 Performing Organization Address [facility] Phone Number [facility] BT MAIN-STATION 1 * VBG POC (06/22/2018 3:29 AM CONTROL PANEL BUILDER) pH, Jaki POC 7.47 (H) 7.33 - [...] MAIN-STATION 1 Performing Organization Address [facility] Phone Number MISYS BT MAIN-STATION 1 * CBC/DIFF (06/22/2018 3:12 AM CONTROL PANEL BUILDER) WBC 6.3 4.5 - 11.0 K/uL BT [...] Phone Number MISYS BT MAIN-STATION 2 after 11/16/2017 Insurance Type Payer Benefit Subscriber ID Effective Phone Address Plan / Dates Group [facility] SELF-PAY [facility] xxxxxxxxx 2018 [phone] [id number] [place] [address] Advance Directives For more information, please contact: [address] [address] Date Inactivated Comments Code Status Date Activated 06/12/2014 11:41 PM Full Code 06/12/2014 6:25 AM 05/20/2012 2:12 PM Full Code 05/19/2012 11:28 AM 05/05/2012 5:50 PM Full Code 05/04/2012 6:05 PM
--- OUTSIDE RECORDS SUMMARY | 2018-11-17 21:33 | XMS REPORT | Clinical Summary ---
Author Author [facility] Address Unknown Phone Unavailable Care Team Providers Care Printing Pressman Name Role Phone Brian Sena PCP Unavailable [...] INFLUENZA VACCINE 04/28/2018 Results Not on fileafter 11/16/2017 Insurance Payer Benefit Subscriber ID Type Phone Address Plan / Group MEDICAID - MEDICAID [facility] MEDICAID xxxxxxxxx Medicaid CARE COMM Contracted HEALTH CHOICE
--- OUTSIDE RECORDS SUMMARY | 2018-11-17 21:33 | XMS REPORT | Clinical Summary ---
Author Author [facility] Organization [facility] Address Unknown Phone Unavailable Care Team Providers Care Music Box Mechanic Name Role Phone PCP Unavailable Allergies Comments [...] (Primary Dx) 06/22/2018 Emergency Emergency Medicine after 10/22/2017 Immunizations Name Dates Previously Given Next Due [...] Taken Vital Sign Reading 06/22/2018 6:30 AM COMBAT INFORMATION CENTER OFFICER Blood Pressure 174/103 06/22/2018 6:30 AM COMBAT INFORMATION CENTER OFFICER Pulse 82 06/22/2018 6:30 AM COMBAT INFORMATION CENTER OFFICER Temperature 36.8 C (98.3 F) 06/22/2018 6:30 AM COMBAT INFORMATION CENTER OFFICER Respiratory Rate 18 06/22/2018 6:30 AM COMBAT INFORMATION CENTER OFFICER Oxygen Saturation 97% - Inhaled Oxygen - Concentration - Weight - - Height - - Body Mass Index - Plan of Treatment Health Maintenance Due Date Last Done Comments Cervical Cancer Scrn (3 1995 Yrs) Breast Cancer Scrn 2014 (Yearly) IMM Influenza Seasonal 04/28/2018Apr to September (>/=19 yrs) Procedures Comments Procedure Name Priority Date/Time Associated Diagnosis UA CHEMISTRIES STAT 06/22/2018 4:30 AM COMBAT INFORMATION CENTER OFFICER POCT URINE DIPSTICK - STAT 06/22/2018 4:29 AM COMBAT INFORMATION CENTER OFFICER TEST STAT 06/22/2018 4:15 AM COMBAT INFORMATION CENTER OFFICER CT ABDOMEN AND PELVIS W STAT 06/22/2018 Right lower quadrant CONTRAST - ROUTINE 4:07 AM COMBAT INFORMATION CENTER OFFICER abdominal pain BMP POC Routine 06/22/2018 3:37 AM COMBAT INFORMATION CENTER OFFICER VBG POC Routine 06/22/2018 3:29 AM COMBAT INFORMATION CENTER OFFICER CBC/DIFF STAT 06/22/2018 3:12 AM COMBAT INFORMATION CENTER OFFICER after 10/22/2017 Results * UA CHEMISTRIES (06/22/2018 4:30 AM COMBAT INFORMATION CENTER OFFICER) Color Yellow BT MAIN-STATION 1 Clarity Clear BT MAIN-STATION 1 Spec [place] >1.035 (H) 1.001 - 1.035 BT MAIN-STATION [...] 1 Specimen Urine Performing Organization Address City/[facility] Phone Number MISYS BT MAIN-STATION 1 * POCT URINE DIPSTICK - (06/22/2018 4:29 AM COMBAT INFORMATION CENTER OFFICER) present Control not present * TEST (06/22/2018 4:15 AM COMBAT INFORMATION CENTER OFFICER) Negative BT MAIN-STATION 1 Specimen Urine Performing Organization Address City/[facility] Phone Number MISYS BT MAIN-STATION 1 * CT ABDOMEN AND PELVIS W CONTRAST - ROUTINE (06/22/2018 4:07 AM COMBAT INFORMATION CENTER OFFICER) Impressions Performed At IMPRESSION: SMS No acute [...] Interface, Rad/Mammog In - 06/22/2018 5:06 AM COMBAT INFORMATION CENTER OFFICER EXAM: CT Abdomen and Pelvis WITH contrast [...] SMS * BMP POC (06/22/2018 3:37 AM COMBAT INFORMATION CENTER OFFICER) CO2 POC 29 21 - 32 mmol/L [...] BT MAIN-STATION Afr-Am 1 Performing Organization Address [facility] Phone Number MISYS BT MAIN-STATION 1 * VBG POC (06/22/2018 3:29 AM COMBAT INFORMATION CENTER OFFICER) pH, Jaki POC 7.47 (H) 7.33 - [...] mmol/L BT MAIN-STATION 1 Performing Organization Address [facility] Phone Number MISYS BT MAIN-STATION 1 * CBC/DIFF (06/22/2018 3:12 AM COMBAT INFORMATION CENTER OFFICER) WBC 6.3 4.5 - 11.0 K/uL BT [...] Phone Number MISYS BT MAIN-STATION 2 after 10/22/2017 Insurance Type Payer Benefit Subscriber ID Effective Phone Address Plan / Dates Group [facility] SELF-PAY [facility] xxxxxxxxx 2018 [phone] [id number] [place] [address] Advance Directives For more information, please contact: [address] [address] Date Inactivated Comments Code Status Date Activated 06/12/2014 11:41 PM Full Code 06/12/2014 6:25 AM 05/20/2012 2:12 PM Full Code 05/19/2012 11:28 AM 05/05/2012 5:50 PM Full Code 05/04/2012 6:05 PM
--- OUTSIDE RECORDS SUMMARY | 2018-11-17 21:33 | XMS REPORT | Continuity of Care Document ---
Author Author [facility] Address Unknown Phone Unavailable Problems Problem Status Onset Date Classification Date Reported Comments Source Abdominal pain Active 06/12/2014 10/24/2018 [facility] OCD Active 06/04/2013 10/24/2018 [facility] TED Active 03/12/2013 10/24/2018 [facility] Cocaine abuse, in remission Active 03/12/2013 10/24/2018 [facility] Neck fullness Active 05/19/2012 10/24/2018 [facility] SOB Active 05/19/2012 10/24/2018 [facility] Lower extremity weakness Active 05/04/2012 10/24/2018 [facility] Right lower quadrant abdominal pain Active 10/24/2018 [facility] Medications Medication Details Route Status Patient Instructions Ordering Provider Order Date Source gabapentin (NEURONTIN) 300 mg capsule Take 1 capsule by mouth 3 times daily for 30 days. Oral No Longer Active 06/22/2018 [facility] acetaminophen (TYLENOL) 500 mg tablet Take 1 tablet by mouth every 6 hours as needed for Pain. Oral Active 06/22/2018 [facility] naproxen (NAPROSYN) 500 mg tablet Take 1 tablet by mouth 2 times daily (with meals) for 30 days. Oral No Longer Active 06/22/2018 [facility] acetaminophen-codeine (TYLENOL/CODEINE #3) 300-30 mg per tablet Take 1 tablet by mouth every 4 hours as needed for Pain. Oral Active 06/12/2014 [facility] ibuprofen (MOTRIN) 800 mg tablet Take 1 tablet by mouth every 8 hours as needed for Pain or Fever. Oral Active 06/12/2014 [facility] gabapentin (NEURONTIN) 300 mg capsule Take 1 capsule by mouth 4 times daily. Oral Active 12/03/2013 [facility] FLUoxetine (PROZAC) 20 mg capsule Take 3 capsules by mouth daily. Oral Active 12/03/2013 [facility] diazepam (VALIUM) 2 mg tablet Take 1 tablet by mouth nightly at bedtime as needed for Anxiety. Oral Active 12/03/2013 [facility] QUEtiapine (SEROQUEL) 50 mg tablet Take 1 tablet by mouth at bedtime nightly. Oral Active 12/03/2013 [facility] nitroGLYCERIN (NITROSTAT) 0.[address] 1 tablet under tongue every 5 minutes as needed for Chest pain and seek medical help. Active 10/10/2012 [facility] hydrochlorothiazide (HYDRODIURIL) 25 mg tablet Take 1 tablet by mouth daily. Oral Active 10/10/2012 [facility] metoprolol (TOPROL XL) 25 mg extended release tablet Take 1 tablet by mouth daily. Oral Active 10/10/2012 [facility] aspirin (ASPIRIN) 81 mg chewable tablet Chew 81 mg by mouth daily. Active [facility] amLODIPine (NORVASC) 5 mg tablet Take 5 mg by mouth daily. Oral Active [facility] Allergies, Adverse Reactions, Alerts Substance Category Reaction Severity Reaction type Status Date Reported Comments Source Lisinopril (Bulk) Propensity to adverse reactions to drug Active 05/19/2012 [facility] Immunizations Immunization Date Given Site Status Last Updated Comments Source Influenza Vaccine 05/04/2012 Not Given Deferred: Patient Refused [facility] Results Order Name Results Value Reference Range Date Interpretation Comments Source UA CHEMISTRIES Color Yellow 06/22/2018 [facility] UA CHEMISTRIES Clarity Clear 06/22/2018 [facility] UA CHEMISTRIES Spec [place] >1.035 1.001 - 1.035 06/22/2018 [facility] UA CHEMISTRIES pH 5.0 5 - 8 06/22/2018 [facility] UA CHEMISTRIES Protein 2+ NEG 06/22/2018 [facility] UA CHEMISTRIES Glucose Negative NEG 06/22/2018 [facility] UA CHEMISTRIES Ketone Negative NEG 06/22/2018 [facility] UA CHEMISTRIES Bilirubin Negative NEG 06/22/2018 [facility] UA CHEMISTRIES Nitrate Negative NEG 06/22/2018 [facility] UA CHEMISTRIES Urobilinogen <1.0 0.2 - 1 06/22/2018 [facility] UA CHEMISTRIES Leukocyte Negative NEG 06/22/2018 [facility] UA CHEMISTRIES Blood Negative NEG 06/22/2018 [facility] UA CHEMISTRIES RBC 2 0 - 4 06/22/2018 [facility] UA CHEMISTRIES WBC 2 0 - 5 06/22/2018 [facility] UA CHEMISTRIES Epithelial Cell 1 /HPF 06/22/2018 [facility] UA CHEMISTRIES Mucous Present 06/22/2018 [facility] UA CHEMISTRIES Lab Interpretation Abnormal 06/22/[address] [facility] [address] ABDOMEN AND PELVIS W CONTRAST - [...] Interface, Rad/Mammog In - 06/22/2018 5:06 AM [employer] EXAM: CT Abdomen and Pelvis WITH contrast [...] Lamine Hernandez MD, 06/22/2018 5:00 AM 06/22/2018 [email or web address] TEST Negative 06/22/2018 [email or web address] POCT URINE DIPSTICK - Control present 06/22/2018 [email or web address] POCT URINE DIPSTICK - not present 06/22/2018 [email or web address] POCT URINE DIPSTICK - Lab Interpretation Normal 06/22/2018 [email or web address] [facility] POC CO2 POC 29 mmol/L 21 - 32 06/22/2018 [email or web address] [facility] POC Chloride POC 101 mmol/L 98 - 107 06/22/2018 [email or web address] [facility] POC Potassium POC 4.1 mmol/L 3.5 - 5.1 06/22/2018 [email or web address] POC Sodium POC 141 mmol/L 136 - 145 06/22/2018 [email or web address] [facility] POC Glucose POC 103 mg/dL 74 - 106 06/22/2018 [facility] POC Urea Nitrogen POC 16 mg/dL 7 - 18 06/22/2018 [facility] POC Creatinine POC 1.0 mg/dL 0.6 - 1.3 06/22/2018 [facility] POC Calcium Ionized POC 1.17 mmol/L 1.15 - 1.29 06/22/2018 [facility] POC Hemoglobin POC 15.0 g/dL 12 - 16 06/22/2018 [facility] POC Hematocrit POC 44.0 % 37 - 47 06/22/2018 [facility] POC GFR, Estimated >60 mL/min/1.73 m2 06/22/2018 [facility] POC GFR, Estim, Afr-Am >60 mL/min/1.73 m2 06/22/2018 [facility] CBC/DIFF WBC 6.3 K/uL 4.5 - 11 06/22/2018 [facility] CBC/DIFF RBC 4.70 4.20 - 5.40 06/22/2018 [facility] CBC/DIFF Hemoglobin 12.7 g/dL 12 - 16 06/22/2018 [facility] CBC/DIFF Hematocrit 39.8 % 37 - 47 06/22/2018 [facility] CBC/DIFF MCV 85 fL 82 - 92 06/22/2018 [facility] CBC/DIFF MCH 27.0 pg 27 - 32 06/22/2018 [facility] CBC/DIFF MCHC 31.9 g/dL 32 - 36 06/22/2018 [facility] CBC/DIFF RDW 44.2 fL 36.4 - 46.3 06/22/2018 [facility] CBC/DIFF Platelet 230 K/uL 150 - 400 06/22/2018 [facility] CBC/DIFF Mean Platelet Volume 11.3 fL 9.4 - 12.4 06/22/2018 [facility] CBC/DIFF Percent NRBC 0.0 06/22/2018 [facility] CBC/DIFF Absolute NRBC 0.00 06/22/2018 [facility] CBC/DIFF Neutrophil 40.3 % 34 - 70 06/22/2018 [facility] CBC/DIFF Lymphocyte 49.8 % 20 - 50 06/22/2018 [facility] CBC/DIFF Monocyte 7.7 % 5 - 12 06/22/2018 [facility] CBC/DIFF Eosinophil 1.4 % 0.7 - 5 06/22/2018 [facility] CBC/DIFF Basophil 0.5 % 0.1 - 1.2 06/22/2018 [facility] CBC/DIFF Pct Immat Gran 0.3 0.0 - 0.5 06/22/2018 [facility] CBC/DIFF Neutrophil, Abs 2.53 K/uL 1.56 - 6.13 06/22/2018 [facility] CBC/DIFF Lymphocyte, Abs 3.12 K/uL 1.18 - 3.74 06/22/2018 [facility] CBC/DIFF Monocyte, Abs 0.48 K/uL 0.24 - 0.36 06/22/2018 [facility] CBC/DIFF Eosinophil, Abs 0.09 K/uL 0.04 - 0.36 06/22/2018 [facility] CBC/DIFF Basophil, Abs 0.03 K/uL 0.01 - 0.08 06/22/2018 [facility] CBC/DIFF Absol Immat Gran 0.02 K/uL 0 - 0.03 06/22/2018 [facility] CBC/DIFF Lab Interpretation Abnormal 06/22/2018 [facility] VBG POC pH, Jaki POC 7.47 7.33 - 7.43 06/22/2018 [facility] VBG POC pCO2, Jaki POC 44.4 38.0 - 50.0 06/22/2018 [facility] VBG POC pO2, Jaki POC 43 50 - 75 06/22/2018 [facility] VBG POC Base Excess, Jaki POC 8 mmol/L 06/22/2018 [facility] VBG POC HCO3, Jaki POC 32.4 mmol/L 22 - 26 06/22/2018 [facility] VBG POC % Sat, Jaki POC 81 % 60 - 85 [facility] 1.29 mmol/L 0.4 - 2 06/22/2018 [facility] VBG POC Sample Type Jaki 06/22/2018 [facility] VBG POC TCO2, JAKI POC 34 mmol/L 21 - 32 06/22/2018 [facility] VBG POC Lab Interpretation Abnormal 06/22/2018 [facility] Vital Signs Vital Sign Value Date Comments Source Systolic (mm Hg) 174 06/22/2018 [facility] Diastolic (mm Hg) 103 06/22/2018 [facility] Heart Rate 82 06/22/2018 [facility] Temperature Oral (F) 36.83 Risa 06/22/2018 [facility] Respitory Rate 18 06/22/2018 [facility] Encounters Location Location Details Encounter Type Encounter Number Reason For Visit Attending Provider ADM Date DC Date Status Source Emergency Center [facility] Emergency [id number] Manuel Pepe MD 06/22/2018 06/22/2018 [facility] Procedures Procedure Code Date Perfomer Comments Source UA CHEMISTRIES 19384 06/22/2018 [place] [facility] POCT URINE DIPSTICK - [id number] 06/22/2018 [facility] TEST 21837 06/22/[address] [facility] CT ABDOMEN AND PELVIS W CONTRAST - ROUTINE 00550 06/22/2018 [place] [facility] BMP POC 35612 06/22/2018 [facility] VBG POC 42674 06/22/2018 [facility] CBC/DIFF [id number] 06/22/2018 [place] [facility]
[2018-11-18] MEDS ORDERED: HYDRALAZINE HCL 20 MG/ML VIAL IV STA (02:14)
[2018-11-18] MEDS ORDERED: ACETAMINOPHEN 325 MG TAB PO ONE (02:45)
[2018-11-18 02:51] LABS: BASOPHILS # (AUTO) 0.1 (0.0-0.1); BASOPHILS % 0.7 % (0.0-1.0); EOSINOPHILS # (AUTO) 0.1 (0.0-0.4); EOSINOPHILS % 1.3 % (0.0-6.0); HEMATOCRIT 39.6 % (34.2-44.1); HEMOGLOBIN 12.6 g/dL (12.0-16.0); LYMPHOCYTES # (AUTO) 3.6 (1.0-3.2); LYMPHOCYTES % 47.8 % (18.0-39.1); MEAN CORPUSCULAR HEMOGLOBIN 27.3 pg (28-32); MEAN CORPUSCULAR HGB CONC 31.8 g/dL (31-35); MEAN CORPUSCULAR VOLUME 85.7 fL (81-99); MONOCYTES # (AUTO) 0.5 (0.2-0.8); MONOCYTES % 6.3 % (4.4-11.3); NEUTROPHILS # (AUTO) 3.3 (2.1-6.9); NEUTROPHILS % 43.8 % (38.7-80.0); PLATELET COUNT 246 x10e3/uL (140-360); RED BLOOD COUNT 4.62 x10e6/uL (3.6-5.1); RED CELL DISTRIBUTION WIDTH 14.2 % (11.7-14.4)
[2018-11-18 03:03] LABS: ALANINE AMINOTRANSFERASE 23 IU/L (0-55); ALKALINE PHOSPHATASE 88 IU/L (40-150); ANION GAP 12.9 mmol/L (8-16); BLOOD UREA NITROGEN 16 mg/dL (7-26); BUN/CREATININE RATIO 14 (6-25); CALCIUM 10.1 mg/dL (8.4-10.2); CARBON DIOXIDE 28 mmol/L (22-29); CHLORIDE 100 mmol/L (98-107); CREATINE KINASE 139 IU/L (29-168); CREATININE, SERUM 1.11 mg/dL (0.57-1.11); EST GLOMERULAR FILTRATION RATE > 60 ML/MIN (60-); GLUCOSE 94 mg/dL (74-118); LIPASE 71 U/L (8-78); POTASSIUM 3.9 mmol/L (3.5-5.1); SODIUM 137 mmol/L (136-145)
== END 2018-11-18 02:52 | disposition left against medical advice (07) ==
LOC: ER 21:29
DX: R10.84 Generalized abdominal pain (principal); I10 Essential (primary) hypertension
CPT/HCPCS: 36415; 80053; 82550; 82553; 83605; 83690; 84484; 85025; 93005; J0360